=== PATIENT | male | born 1960 | race American Indian/Alaskan Native ===

== ENCOUNTER 2016-07-19 16:15 | Inpatient (IN) | payer MEDICAID, MEDICARE ==
--- NOTE | 2016-07-19 16:33 | C.PDOC ---
History Of Present Illness 56 y/o male presents to ED with complaints of persistent Left hip and leg pain for 4 days. Patient states he tripped and fell landing on left hip. Patient was previously seen at [facility] 3 days ago for same complaints and was told XRAYS were negative. Patient reports on going persistent pain and unable to weight bear. No other complaints at this time. PERSIST L HIP/LEG PAIN X 4 DAYS. PS TRIPPED AND FELL LANDED ON L HIP. SEEN @ [facility] 3 DAYS FOR SAME, WAS TOLD XRAYS NEG. STILL W PERSIST PAIN UNABLE TO WT BEAR LAST HEROIN USE 2 DAYS AGO EXAM MILD DIST NONTOXIC HEENT ATRAUM EXT NO GROSS DEFORM. LIMITED ROM L HIP. L KNEE ROM W PAIN LIMITED DUE TO HIP. SKIN INTACT NEURO INTACT Time Seen by Provider: 07/19/16 16:23 Chief Complaint (Nursing): Lower Extremity Problem/Injury History Per: Patient History/Exam Limitations: no limitations Onset/Duration Of Symptoms: Days Current Symptoms Are (Timing): Still Present - Hip Description Of Injury: Fell Currently Unable To: Bear Weight - Knee Description Of Injury: Fell Currently Unable To: Bear Weight Past Medical History Reviewed: Historical Data, Nursing Documentation, Vital Signs Vital Signs: Last Vital Signs Temp 98.1 F 07/19/16 16:17 Pulse 98 H 07/19/16 16:17 Resp 20 07/19/16 16:17 BP 114/74 07/19/16 16:17 Pulse Ox 96 07/19/16 18:05 - Medical History PMH: HTN - [facility] DETOXIFICATION SERVICES FOR SUBSTANCE ABUSE TREATMENT (04/29/15) Family History: States: No Known Family Hx - Social History Hx Tobacco Use: No Hx Alcohol Use: No Hx Substance Use: Yes - Immunization History Hx Tetanus Toxoid Vaccination: No Hx Influenza Vaccination: No Hx Pneumococcal Vaccination: No Review Of Systems Except As Marked, All Systems Reviewed And Found Negative. Constitutional: Positive for: Weakness Eyes: Negative for: Vision Change Musculoskeletal: Positive for: Leg Pain Skin: Negative for: Rash Neurological: Positive for: Weakness. Negative for: Headache, Dizziness Physical Exam - Physical Exam Appears: Non-toxic, Other (Mild Distress) Skin: Normal Color, Warm Head: Atraumatic, Normacephalic Eye(s): bilateral: Normal Inspection Oral Mucosa: Moist Extremity: No Deformity, No Swelling, Other (Limited ROM on left hip, Left knee ROM with pain (limited due to hip)) Neurological/Psych: Oriented x3, Normal Speech, Normal Cognition ED Course And Treatment ECG: Interpreted By Me ECG Rhythm: Sinus Rhythm ECG Interpretation: Normal Rate From EC O2 Sat by Pulse Oximetry: 96 (RA) Pulse Ox Interpretation: Normal Progress - Re-Evaluation Re-evaluation Note: 07/19/16 17:39 D/W DR DOMINGO ORTHO CARD CUTTER HELPER. WILL CONSULT. PREP FOR O.R. 07/2107/19/16 18:02 d/w dr PERDOMO MED CARD CUTTER HELPER AWARE OF ER FINDINGS AND ORTHO PLAN. WILL ADMIT - Data Reviewed Data Reviewed: Lab, Diagnostic imaging, EKG, Old records - Continuity of Care Discussed patient case with:: Patient, On-call PMD-pt unassigned Discussed pt. case with client development consultant/specialty: Orthopedic Surgery Disposition Counseled Patient/Family Regarding: Studies Performed, Diagnosis - Disposition Disposition: HOSPITALIZED Disposition Time: 17:41 Condition: STABLE - POA Present On Arrival: Falls Or Trauma - Clinical Impression Clinical Impression: Hip fracture - PA / MEAT WRAPPER / Resident Statement MD/DO has reviewed & agrees with the documentation as recorded. MD/DO has examined the patient and agrees with the treatment plan. - Scribe Statement The provider has reviewed the documentation as recorded by the Osorio Pro All medical record entries made by the Osorio were at my direction and personally dictated by me. I have reviewed the chart and agree that the record accurately reflects my personal performance of the history, physical exam, medical decision making, and the department course for this patient. I have also personally directed, reviewed, and agree with the discharge instructions and disposition. Decision To Admit - Pt Status Changed To: Hospital Disposition Of: Inpatient - Admit Certification Admit to Inpatient:: After my assessment, the patient will require hospitalization for at least two midnights. This is because of the severity of symptoms shown, intensity of services needed, and/or the medical risk in this patient being treated as an outpatient. - InPatient: Physician Admission Certification: I certify that this patient requires 2 or more midnights of care for the following reason:: SEE NOTE - . Bed Request Type: Regular Admitting Physician: Emily Perdomo Patient Diagnosis: Hip fracture
[2016-07-19] MEDS ORDERED: Sodium Chloride 0.9% 1,000 ML IV ONE (17:33)
[2016-07-19] MEDS ORDERED: HYDROmorphone 0.5 mg/0.5 ml ISec IVP STA (17:34)
--- NOTE | 2016-07-19 17:36 | RAD ---
PROCEDURE: Left Knee Radiographs. HISTORY: Trauma COMPARISON: None available. FINDINGS: BONES: No acute displaced fracture. JOINTS: No dislocation. JOINT EFFUSION: Probable small suprapatellar joint effusion. OTHER FINDINGS: None. IMPRESSION: Probable small suprapatellar joint effusion. No acute displaced fracture or dislocation identified If symptoms persist, or if there is continued clinical concern, x-ray follow-up in 7-10 days should be considered.
--- NOTE | 2016-07-19 17:52 | RAD ---
PROCEDURE: Left femur HISTORY: Trauma 2 days ago. Anatomic area of interest: Greater trochanter region COMPARISON: July 19, 2016. TECHNIQUE: Standard protocol for this study/examination. FINDINGS: Comminuted fracture through the proximal femur. This courses to the greater trochanter into the neck and intertrochanteric region. Preserved femoral acetabular relationship. IMPRESSION: Acute proximal left femoral fracture.
--- NOTE | 2016-07-19 17:57 | RAD ---
PROCEDURE: Radiographs of the pelvis. HISTORY: TRAUMA COMPARISON: July 19, 2016. FINDINGS: BONES: Pelvic Bones: Proximal left femoral fracture. Inter trochanteric location extending to the greater trochanter. Unremarkable. Hips: Preserved femoral acetabular relationship on the left. Mild degenerative changes which are symmetrical bilaterally. JOINTS: Sacroiliac Joints: Unremarkable. Pubic Symphysis: Unremarkable. OTHER FINDINGS: Incompletely visualized orthopedic hardware lower lumbar spine. IMPRESSION: Acute and comminuted intertrochanteric fracture proximal left femur. Concordant results with the preliminary interpretation rendered by the emergency department physician procedure.
--- NOTE | 2016-07-19 18:07 | RAD ---
PROCEDURE: CHEST RADIOGRAPH, 1 VIEW HISTORY: Pre Op COMPARISON: None available. FINDINGS: LUNGS: No discrete infiltrates suspicious pulmonary nodules or masses. Innumerable small calcified granuloma. PLEURA: No pneumothorax or pleural fluid seen. CARDIOVASCULAR: Normal. OSSEOUS STRUCTURES: No significant abnormalities. VISUALIZED UPPER ABDOMEN: Normal. OTHER FINDINGS: None. IMPRESSION: No active disease. No preliminary interpretation rendered by the emergency department physician
[2016-07-19 18:31] LABS: BASO % 0.5 % (0.0-2.0); EOS # 0.1 K/uL (0.0-0.7); EOS % 1.9 % (0.0-4.0); HEMATOCRIT 35.7 % (35.0-51.0); LYMPH # 1.4 K/uL (1.0-4.3); MEAN CELL VOLUME 88.8 fL (80.0-94.0); MEAN CORPUSCULAR HEMOGLOBIN 28.7 pg (27.0-31.0); MEAN CORPUSCULAR HGB CONC 32.3 g/dL (33.0-37.0); MEAN PLATELET VOLUME 8.4 fL (7.2-11.7); MONO # 0.6 K/uL (0.0-0.8); MONO % 8.3 % (0.0-10.0); RED CELL DISTRIBUTION WIDTH 14.7 % (11.5-14.5); WHITE BLOOD COUNT 7.2 K/uL (4.8-10.8)
[2016-07-19 18:38] LABS: CHLORIDE 110 mmol/L (98-107)
[2016-07-19 18:39] LABS: INR 1.1; POTASSIUM 3.6 mmol/L (3.6-5.2); SODIUM 144 mmol/L (132-148)
[2016-07-19 18:41] LABS: ALB/GLOB RATIO 1.2 (1.0-2.1); ALKALINE PHOSPHATASE 71 U/L (38-126); AST/SGOT 20 U/L (17-59); BLOOD UREA NITROGEN 17 mg/dL (9-20); CARBON DIOXIDE 27 mmol/L (22-30); GFR AFRICAN-AMERICAN > 60
[2016-07-19 18:42] LABS: ALT/SGPT 27 U/L (21-72); CALCIUM 8.6 mg/dl (8.6-10.4); GLUCOSE,RANDOM 81 mg/dL (75-110)
--- NOTE | 2016-07-19 22:07 | CP.PCM.HP ---
History of Present Illness - History of Present Illness History of Present Illness: COMPREHENSIVE HISTORY & PHYSICAL EXAM HPI 56 years old, black male with history of hypertension for 3-4 days ago and sustained pain in the left hip region. Patient was seen in the emergency room off [facility]. An x-ray was reported as negative. Patient continued to have pain and limping and presented to [facility]. He an x-ray showed a fracture of the left femoral head. PAST HIST. Hypertension. Heroine abuse. Patient was admitted in the beginning of 2017 for heroine abuse and now continues to use. the last one was 2 days ago. PERSONAL HIST: Smoking. t Alcohol. y Allergy N Travel_- . FAMILY HIST : ROS : Constitutional: Negative for weight change, chills, night sweats, fatigue and usage of assist device. Eyes: Negative for redness, swelling, itching, discharge, vision changes, blurry vision, double vision, glaucoma, cataracts, Ears: Negative for hearing loss, ringing, , tinnitus, vertigo Nose: Negative for rhinorrhea, stuffiness, sniffing, itching, postnasal drip, discoloration, nasal congestion and epistaxis. Throat: Negative for throat clearing, sore throat, hoarseness, difficulty swallowing and difficulty speaking. Respiratory: Negative for cough, chest tightness, sputum or phlegm, chronic cough, hemoptysis, wheezing, snoring at night, pleuritic chest pain and daytime somnolence. Cardiovascular: Negative for chest pain, palpitations, orthopnea, PND, Edema of legs, leg cramps, angina, claudication, , irregular heartbeat, Neurology: Negative for irritability, muscle weakness, numbness and tingling, seizures, tremors, migraines, slurred speech, syncope, memory loss, mood changes , recurrent headaches Gastrointestinal: Negative for difficulty swallowing, diarrhea, constipation, black stools, rectal bleeding, nausea, flatulence, reflux, poor appetite, changes in bowel habits, abdominal pain Genitourinary: Negative for frequent urination, hematuria, discharge, incontinence, urinary retention, frequent UTI, Psychiatric: Negative for depression, anxiety/panic, suicidal tendencies, Musculoskeletal: Negative for swollen joints, back pain, , neck pain, morning stiffness of joints, . pain in the left region. Hip joint. Skin: Negative for rash, ulcers, itching, dry skin and pigmented lesions. P/E: Constitutional: Appears stated age and in no apparent distress. Head: Normocephalic. Ears: External ear canals patent without inflammation. Tympanic membranes intact with normal light reflex and landmark. Eyes: Pupils are central, bilaterally equal, symmetrical and reacts to light with normal movements and no icterus or pallor. Nose: External nares are patent. Mucosa is pink Mouth-Throat: Good general appearance and condition. No post-pharyngeal/oropharyngeal erythema and tonsillar hypertrophy. Good dental hygiene. Neck-Lymphatic: Neck is supple with normal ROM, no thyromegaly, lymph nodes or masses. JVD is normal with no carotid bruit. Lungs: Clear to percussion and auscultation with bilateral normal air entry. Cardiovascular: S1 and S2 are normal with no murmurs, gallops and rub. GI Exam: No hepatomegaly. Abdomen is soft and non-tender. No Organomegaly , masses or hernias are evident and bowel sounds are normal and active. Neurology: Higher function and all cranial nerves intact, with no gross motor or sensory deficit. Superficial and deep reflexes are normal with downwards planters. No cerebellar deficit with normal gait. Musculoskeletal:tenderness around the left hip range of motion is restricted due to pain in the left hip. Extremities: Homans sign absent. Intact pulses with no pitting edema, calf tenderness or skin color changes. Skin: No rash, eruptions or abnormal skin pigmentation LAB/RADIOLOGY: ASSESMENT : Fraction of the left femoral head. Hypertension. Plan Orthopedic evaluation and further treatment. Present on Admission - Present on Admission Any Indicators Present on Admission: No Past Patient History - Past Medical History & Family History Past Medical History?: Yes - Past Social History Smoking Status: Light Smoker < 10 Cigarettes Daily - CARDIAC Hx Cardiac Disorders: Yes Hx Hypertension: Yes - PULMONARY Hx Respiratory Disorders: No Hx Tuberculosis: No - NEUROLOGICAL Hx Neurological Disorder: No Hx Seizures: No - HEENT Hx HEENT Problems: No - RENAL Hx Chronic Kidney Disease: No - ENDOCRINE/METABOLIC Hx Endocrine Disorders: No - HEMATOLOGICAL/ONCOLOGICAL Hx Blood Disorders: No Hx Human Immunodeficiency Virus (HIV): No - INTEGUMENTARY Hx Dermatological Problems: No - MUSCULOSKELETAL/RHEUMATOLOGICAL Hx Falls: No - GASTROINTESTINAL Hx Gastrointestinal Disorders: No - GENITOURINARY/GYNECOLOGICAL Hx Genitourinary Disorders: No Hx Sexually Transmitted Disorders: No - PSYCHIATRIC Hx Substance Use: Yes (heroine use) - SURGICAL HISTORY Hx Surgeries: Yes Hx Orthopedic Surgery: Yes (spine surgery) - ANESTHESIA Hx Anesthesia: Yes Hx Anesthesia Reactions: No Hx Malignant Hyperthermia: No Has any member of the family had a problem w/ anesthesia?: No Meds Allergies/Adverse Reactions: Allergies Allergy/AdvReac Type Severity Reaction Status Date / Time No Known Allergies Allergy Verified 07/19/16 16:19 Results - Vital Signs Recent Vital Signs: Last Vital Signs Temp 98.2 F 07/19/16 20:23 Pulse 73 07/19/16 20:23 Resp 20 07/19/16 20:23 BP 124/76 07/19/16 20:23 Pulse Ox 98 07/19/16 20:23 - Labs Result Diagrams: 07/19/16 18:26 07/19/16 18:26 Labs: Laboratory Results - last 24 hr 07/19/16 07/19/16 07/19/16 18:26 18:26 18:26 WBC 7.2 RBC 4.02 L Hgb 11.5 L Hct 35.7 MCV 88.8 MCH 28.7 MCHC 32.3 L RDW 14.7 H Plt Count 135 D MPV 8.4 Neut % (Auto) 69.3 Lymph % (Auto) 20.0 Bureau % (Auto) 8.3 Eos % (Auto) 1.9 Baso % (Auto) 0.5 Neut # 5.0 Lymph # 1.4 Bureau # 0.6 Eos # 0.1 Baso # 0.0 PT INR APTT Sodium 144 Potassium 3.6 Chloride 110 H Carbon Dioxide 27 Anion Gap 11 BUN 17 Creatinine 0.9 Est GFR ( Amer) > 60 Est GFR (Non-Af Amer) > 60 POC Glucose (mg/dL) Random Glucose 81 Calcium 8.6 Total Bilirubin 1.0 AST 20 ALT 27 Alkaline Phosphatase 71 Total Protein 7.0 Albumin 3.7 Globulin 3.2 Albumin/Globulin Ratio 1.2 Blood Type O POSITIVE Antibody Screen Negative 07/19/16 07/19/16 18:26 21:33 WBC RBC Hgb Hct MCV MCH MCHC RDW Plt Count MPV Neut % (Auto) Lymph % (Auto) Bureau % (Auto) Eos % (Auto) Baso % (Auto) Neut # Lymph # Bureau # Eos # Baso # PT 12.5 H INR 1.1 APTT 33 Sodium Potassium Chloride Carbon Dioxide Anion Gap BUN Creatinine Est GFR ( Amer) Est GFR (Non-Af Amer) POC Glucose (mg/dL) 113 H Random Glucose Calcium Total Bilirubin AST ALT Alkaline Phosphatase Total Protein Albumin Globulin Albumin/Globulin Ratio Blood Type Antibody Screen
[2016-07-19] MEDS: Oxycodone/Acetaminophen 5/325 mg Tab PO PRN (22:35)
[2016-07-19 22:58] LABS: RBC URINE 1 /hpf (0-3); URINE BACTERIA RARE (<OCC); URINE BILIRUBIN NEGATIVE (NEGATIVE); URINE BLOOD NEGATIVE (NEGATIVE); URINE COLOR Yellow (YELLOW); URINE GLUCOSE (UA) NORMAL (Normal); URINE KETONE NEGATIVE (NEGATIVE); URINE LEUKOCYTE ESTERASE NEG Leu/uL (Negative); URINE PROTEIN NEGATIVE (NEGATIVE); URINE UROBILINOGEN NORMAL mg/dL (0.2-1.0); WBC URINE 4 /hpf (0-5)
[2016-07-20] MEDS: Oxycodone/Acetaminophen 5/325 mg Tab PO PRN ×4 (04:40→20:21)
[2016-07-20 07:08] LABS: CHLORIDE 107 mmol/L (98-107); SODIUM 140 mmol/L (132-148)
[2016-07-20 07:09] LABS: POTASSIUM 3.6 mmol/L (3.6-5.2)
[2016-07-20 07:11] LABS: ALB/GLOB RATIO 1.1 (1.0-2.1); ALKALINE PHOSPHATASE 59 U/L (38-126); ALT/SGPT 20 U/L (21-72); AST/SGOT 15 U/L (17-59); BILIRUBIN,TOTAL 0.5 mg/dL (0.2-1.3); BLOOD UREA NITROGEN 18 mg/dL (9-20); CALCIUM 7.9 mg/dl (8.6-10.4); CARBON DIOXIDE 27 mmol/L (22-30); GFR AFRICAN-AMERICAN > 60; GLUCOSE,RANDOM 101 mg/dL (75-110); TOTAL PROTEIN 5.6 g/dL (6.3-8.3)
[2016-07-20 07:20] LABS: BASO # 0.1 K/uL (0.0-0.2); BASO % 1.1 % (0.0-2.0); EOS # 0.2 K/uL (0.0-0.7); EOS % 3.4 % (0.0-4.0); HEMATOCRIT 31.2 % (35.0-51.0); LYMPH # 1.1 K/uL (1.0-4.3); LYMPH % 21.3 % (20.0-40.0); MEAN CELL VOLUME 89.4 fL (80.0-94.0); MEAN CORPUSCULAR HEMOGLOBIN 28.6 pg (27.0-31.0); MEAN PLATELET VOLUME 8.4 fL (7.2-11.7); MONO # 0.5 K/uL (0.0-0.8); MONO % 8.7 % (0.0-10.0); NRBC % 0.1 % (0.0-2.0); RED CELL DISTRIBUTION WIDTH 15.2 % (11.5-14.5); WHITE BLOOD COUNT 5.4 K/uL (4.8-10.8)
--- NOTE | 2016-07-20 08:35 | CT ---
CT left hip History: Left hip fracture. Comparison: None available. Technique: Multiple contiguous axial images were performed through the left hip without the use of intravenous contrast. Subsequently, sagittal and coronal reformatted images were obtained. This CT exam was performed using one or more of the following dose reduction techniques: Automated exposure control, adjustment of the mA and/or kV according to patient size, and/or use of iterative reconstruction technique. Findings: Acute comminuted intertrochanteric fracture of the left femur with minimal displacement of the fracture fragments and mild varus angulation. Moderate advanced degenerative changes of the left hip joint with subchondral cystic changes in the superior acetabulum measuring 3.7 millimeters as well as within the anterior femoral head measuring 1.0 centimeter and posterior femoral head measuring 5 millimeters. Small hip joint effusion. No evidence of dislocation. Soft tissue swelling. Vascular calcifications. Calcified phleboliths in the pelvis. 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 Impression: Acute comminuted intertrochanteric fracture of the left femur as described above involving both the greater and lesser trochanters. Additional findings as above. These findings were preliminarily reported at 9:21 p.m. on 07/19/[address] Salena Montiel from [facility].
--- NOTE | 2016-07-20 09:50 | CARD ---
APPROVED REPORT EKG Measurement Heart [id number] <Conclusion> Normal sinus rhythm with sinus arrhythmia Left anterior fascicular block Abnormal ECG
--- NOTE | 2016-07-20 13:23 | CP.PCM.PN ---
Subjective - Date & Time of Evaluation Date of Evaluation: 07/20/16 Time of Evaluation: 13:20 - Subjective Subjective: CHIEF COMPLAINTS TODAY : PAIN L HIP ROS. HEENT : N. Resp : No cough, wheezing ,pleuritic CP ,or hemoptysis Cardio : No anginal CP, PND, orthopnea, palpitation GI : No abd.pain, n/v ,diarrhea or GI bleeding . VENDING MECHANIC : No headache, vertigo, focal deficit. Musculoskel : No joint swelling , PAIN L HIP Derm : No rash Psych : Normal affect. Ext : No swelling ,calf pain PE. Pt. is alert awake in no distress. V.S As noted in the chart Head ,ear nose,throat and eyes : Normal. Neck : Supple with normal carotids. Lungs: Clear air entry. Heart : S1 & S2 normal with S4. No murmur. Abd : Soft non tender with normal bowel sounds. Neuro : Moves all ext. with no localized deficit. Ext : No edema with intact pulses.Non tender calves ROM L HIP RESTRICTED AND PAINFUL Derm : No rashes or decubitus ulcer. LABS/RADIOLOGY: ASSESSMENT/PLAN : PT. IS MEDICALLY CLEARED FOR ORTHO SUGERY EXCEPT DROP IN PLT TO 115, HEMATOLOGY WILL CLARIFY Objective - Vital Signs/Intake and Output Vital Signs (last 24 hours): Temp Pulse Resp BP Pulse Ox 98.5 F 54 L 17 116/70 100 07/20/16 07:15 07/20/16 07:15 07/20/16 07:15 07/20/16 07:15 07/20/16 07:15 - Medications Medications: Current Medications Oxycodone/Acetaminophen (Percocet 5/325 Mg Tab) 1 tab PO Q4H PRN PRN Reason: Pain, severe (8-10) Stop: 07/22/16 21:44 Last Admin: 07/20/16 09:57 Dose: 1 tab - Labs Labs: 07/20/16 06:52 07/20/16 06:52 PT 12.5 SECONDS (9.7-12.2) H 07/19/16 18:26 INR 1.1 07/19/16 18:26 APTT 33 SECONDS (21-34) 07/19/16 18:26
--- NOTE | 2016-07-20 16:55 | CP.PCM.CON ---
History of Present Illness - History of Present Illness History of Present Illness: 56 year old male with a history of HTN, admitted s/p fall with hip fracture, found to be thrombocytopenic. The patient reports to tripping on the side walk and landed on his hip. He was unable to apply weight on his leg and went to [facility] [place] and was given crutches. Due to continued pain and inability to weight bare , he came to [facility] and was found to have a hip fracture. He denies blood problems in the past. He denies abnormal bleeding and bruising. Past medical history: HTN Past surgical history: Back surgery for herniated disc Family history: Denies hematologic and oncologic problems Social history: SMokes 1/2ppd x 40 years, denies alcohol and illicit drug use. Allergies: NKA Review of systems: All remaining review of systems including HEENT, cardiovascular, respiratory, gastrointestinal, genitourinary, musculoskeletal, dermatologic, and neurologic are negative unless mentioned in the HPI. Past Patient History - Past Medical History & Family History Past Medical History?: Yes - Past Social History Smoking Status: Light Smoker < 10 Cigarettes Daily - CARDIAC Hx Cardiac Disorders: Yes Hx Hypertension: Yes - PULMONARY Hx Respiratory Disorders: No Hx Tuberculosis: No - NEUROLOGICAL Hx Neurological Disorder: No Hx Seizures: No - HEENT Hx HEENT Problems: No - RENAL Hx Chronic Kidney Disease: No - ENDOCRINE/METABOLIC Hx Endocrine Disorders: No - HEMATOLOGICAL/ONCOLOGICAL Hx Blood Disorders: No Hx Human Immunodeficiency Virus (HIV): No - INTEGUMENTARY Hx Dermatological Problems: No - MUSCULOSKELETAL/RHEUMATOLOGICAL Hx Falls: No - GASTROINTESTINAL Hx Gastrointestinal Disorders: No - GENITOURINARY/GYNECOLOGICAL Hx Genitourinary Disorders: No Hx Sexually Transmitted Disorders: No - PSYCHIATRIC Hx Substance Use: Yes (heroine use) - SURGICAL HISTORY Hx Surgeries: Yes Hx Orthopedic Surgery: Yes (spine surgery) - ANESTHESIA Hx Anesthesia: Yes Hx Anesthesia Reactions: No Hx Malignant Hyperthermia: No Has any member of the family had a problem w/ anesthesia?: No Meds Allergies/Adverse Reactions: Allergies Allergy/AdvReac Type Severity Reaction Status Date / Time No Known Allergies Allergy Verified 07/19/16 16:19 - Medications Medications: Current Medications Oxycodone/Acetaminophen (Percocet 5/325 Mg Tab) 1 tab PO Q4H PRN PRN Reason: Pain, severe (8-10) Stop: 07/22/16 21:44 Last Admin: 07/20/16 16:00 Dose: 1 tab Physical Exam - Head Exam Head Exam: ATRAUMATIC - Eye Exam Eye Exam: Normal appearance - ENT Exam ENT Exam: Mucous Membranes Dry - Respiratory Exam Respiratory Exam: NORMAL BREATHING PATTERN - Cardiovascular Exam Cardiovascular Exam: +S1, +S2 - GI/Abdominal Exam GI & Abdominal Exam: Normal Bowel Sounds - Extremities Exam Extremities exam: Positive for: normal inspection - Neurological Exam Neurological exam: Oriented x3 - Psychiatric Exam Psychiatric exam: Normal Affect, Normal Mood - Skin Skin Exam: Warm Results - Vital Signs Recent Vital Signs: Last Vital Signs Temp 98.3 F 07/20/16 15:44 Pulse 55 L 07/20/16 15:44 Resp 18 07/20/16 15:44 BP 146/83 07/20/16 15:44 Pulse Ox 100 07/20/16 15:44 - Labs Result Diagrams: 07/20/16 06:52 07/20/16 06:52 Labs: Laboratory Results - last 24 hr 07/19/16 07/19/16 07/19/16 18:26 18:26 18:26 WBC 7.2 RBC 4.02 L Hgb 11.5 L Hct 35.7 MCV 88.8 MCH 28.7 MCHC 32.3 L RDW 14.7 H Plt Count 135 D MPV 8.4 Neut % (Auto) 69.3 Lymph % (Auto) 20.0 Stearns % (Auto) 8.3 Eos % (Auto) 1.9 Baso % (Auto) 0.5 Neut # 5.0 Lymph # 1.4 Stearns # 0.6 Eos # 0.1 Baso # 0.0 PT INR APTT Sodium 144 Potassium 3.6 Chloride 110 H Carbon Dioxide 27 Anion Gap 11 BUN 17 Creatinine 0.9 Est GFR ( Amer) > 60 Est GFR (Non-Af Amer) > 60 POC Glucose (mg/dL) Random Glucose 81 Calcium 8.6 Total Bilirubin 1.0 AST 20 ALT 27 Alkaline Phosphatase 71 Total Protein 7.0 Albumin 3.7 Globulin 3.2 Albumin/Globulin Ratio 1.2 Urine Color Urine Clarity Urine pH Ur Specific Wetmore Urine Protein Urine Glucose (UA) Urine Ketones Urine Blood Urine Nitrate Urine Bilirubin Urine Urobilinogen Ur Leukocyte Esterase Urine WBC (Auto) Urine RBC (Auto) Ur Squamous Epith Cells Urine Bacteria Blood Type O POSITIVE Antibody Screen Negative 07/19/16 07/19/16 07/19/16 18:26 21:33 22:48 WBC RBC Hgb Hct MCV MCH MCHC RDW Plt Count MPV Neut % (Auto) Lymph % (Auto) Stearns % (Auto) Eos % (Auto) Baso % (Auto) Neut # Lymph # Stearns # Eos # Baso # PT 12.5 H INR 1.1 APTT 33 Sodium Potassium Chloride Carbon Dioxide Anion Gap BUN Creatinine Est GFR ( Amer) Est GFR (Non-Af Amer) POC Glucose (mg/dL) 113 H Random Glucose Calcium Total Bilirubin AST ALT Alkaline Phosphatase Total Protein Albumin Globulin Albumin/Globulin Ratio Urine Color Yellow Urine Clarity Clear Urine pH 5.0 Ur Specific Wetmore 1.024 Urine Protein Negative Urine Glucose (UA) Normal Urine Ketones Negative Urine Blood Negative Urine Nitrate Negative Urine Bilirubin Negative Urine Urobilinogen Normal Ur Leukocyte Esterase Neg Urine WBC (Auto) 4 Urine RBC (Auto) 1 Ur Squamous Epith Cells 1 Urine Bacteria Rare Blood Type Antibody Screen 07/20/16 07/20/16 07/20/16 06:49 06:52 06:52 WBC 5.4 RBC 3.49 L Hgb 10.0 L Hct 31.2 L MCV 89.4 MCH 28.6 MCHC 32.0 L RDW 15.2 H Plt Count 115 L D MPV 8.4 Neut % (Auto) 65.5 Lymph % (Auto) 21.3 Stearns % (Auto) 8.7 Eos % (Auto) 3.4 Baso % (Auto) 1.1 Neut # 3.5 Lymph # 1.1 Stearns # 0.5 Eos # 0.2 Baso # 0.1 PT INR APTT Sodium 140 Potassium 3.6 Chloride 107 Carbon Dioxide 27 Anion Gap 10 BUN 18 Creatinine 0.8 Est GFR ( Amer) > 60 Est GFR (Non-Af Amer) > 60 POC Glucose (mg/dL) 110 Random Glucose 101 Calcium 7.9 L Total Bilirubin 0.5 AST 15 L D ALT 20 L D Alkaline Phosphatase 59 Total Protein 5.6 L Albumin 2.9 L D Globulin 2.7 Albumin/Globulin Ratio 1.1 Urine Color Urine Clarity Urine pH Ur Specific Wet[place] Urine Protein Urine Glucose (UA) Urine Ketones Urine Blood Urine Nitrate Urine Bilirubin Urine Urobilinogen Ur Leukocyte Esterase Urine WBC (Auto) Urine RBC (Auto) Ur Squamous Epith Cells Urine Bacteria Blood Type Antibody Screen 07/20/16 11:58 WBC RBC Hgb Hct MCV MCH MCHC RDW Plt Count MPV Neut % (Auto) Lymph % (Auto) Stearns % (Auto) Eos % (Auto) Baso % (Auto) Neut # Lymph # Stearns # Eos # Baso # PT INR APTT Sodium Potassium Chloride Carbon Dioxide Anion Gap BUN Creatinine Est GFR ( Amer) Est GFR (Non-Af Amer) POC Glucose (mg/dL) 118 H Random Glucose Calcium Total Bilirubin AST ALT Alkaline Phosphatase Total Protein Albumin Globulin Albumin/Globulin Ratio Urine Color Urine Clarity Urine pH Ur Specific Wetmore Urine Protein Urine Glucose (UA) Urine Ketones Urine Blood Urine Nitrate Urine Bilirubin Urine Urobilinogen Ur Leukocyte Esterase Urine WBC (Auto) Urine RBC (Auto) Ur Squamous Epith Cells Urine Bacteria Blood Type Antibody Screen Assessment & Plan (1) Thrombocytopenia Assessment and Plan: mild will check HIV and hepatitis panel patient cleared from hematologic standpoint for orthopedic surgery Status: Acute (2) Anemia Assessment and Plan: will check ferritin, retic count, b12, folate, FOBT to further characterize Thank you for this interesting consult. Status: Acute
[2016-07-21] MEDS: Oxycodone/Acetaminophen 5/325 mg Tab PO PRN ×3 (02:51→22:19)
[2016-07-21 09:31] LABS: HEMATOCRIT 36.1 % (35.0-51.0); MEAN CELL VOLUME 88.4 fL (80.0-94.0); MEAN CORPUSCULAR HEMOGLOBIN 28.6 pg (27.0-31.0); MEAN CORPUSCULAR HGB CONC 32.3 g/dL (33.0-37.0); MEAN PLATELET VOLUME 8.4 fL (7.2-11.7); RED CELL DISTRIBUTION WIDTH 14.4 % (11.5-14.5); WHITE BLOOD COUNT 7.6 K/uL (4.8-10.8)
[2016-07-21 09:44] LABS: CHLORIDE 100 mmol/L (98-107); SODIUM 134 mmol/L (132-148)
[2016-07-21 09:47] LABS: BLOOD UREA NITROGEN 14 mg/dL (9-20); CARBON DIOXIDE 27 mmol/L (22-30); GFR AFRICAN-AMERICAN > 60; GLUCOSE,RANDOM 99 mg/dL (75-110)
[2016-07-21 09:48] LABS: CALCIUM 8.3 mg/dl (8.6-10.4)
[2016-07-21 10:56] LABS: FOLATE 10.6 ng/mL
--- NOTE | 2016-07-21 11:34 | CP.PCM.PN ---
Subjective - Date & Time of Evaluation Date of Evaluation: 07/21/16 Time of Evaluation: 11:34 - Subjective Subjective: FOR OR TODAY HEMATOLOGY CLEARED PT REPAET PLT 141 HEPATITIS PROFILE NEG Objective - Vital Signs/Intake and Output Vital Signs (last 24 hours): Temp Pulse Resp BP Pulse Ox 98.4 F 54 L 20 143/51 L 98 07/21/16 07:50 07/21/16 07:50 07/21/16 07:50 07/21/16 07:50 07/21/16 07:50 - Medications Medications: Current Medications Oxycodone/Acetaminophen (Percocet 5/325 Mg Tab) 1 tab PO Q4H PRN PRN Reason: Pain, severe (8-10) Stop: 07/22/16 21:44 Last Admin: 07/21/16 08:58 Dose: 1 tab - Labs Labs: 07/21/16 09:25 07/21/16 09:25 PT 12.5 SECONDS (9.7-12.2) H 07/19/16 18:26 INR 1.1 07/19/16 18:26 APTT 33 SECONDS (21-34) 07/19/16 18:26
--- NOTE | 2016-07-21 13:26 | CP.PCM.CON ---
History of Present Illness - History of Present Illness History of Present Illness: 56-year-old male with PMH = hypertension, IV drug abuse (heroin-last use was 2 days prior to admission, 07/17/16)presented to the ER at [facility] on with L hip pain for 4 days and inability to weight-bear on L lower extremity for 1 day.patient is a poor historian and gives a rather vague history, he states that approximately 3-4 days ago he developed left hip pain after trip and fall from standing while walking and went to the ER at [facility]. He was diagnosed with a sprain and told that there was no fracture and told to follow- up with an orthopedic surgeon as an outpatient. The pain continued to worsen and he started to have difficulty with weightbearing on left lower extremity. At that point time he came to the ER at [facility] , after evaluation by ER staff and review of imaging, he was diagnosed with a displaced (mildly) intertrochanteric hip fracture. He was admitted to the medical service under Dr Perdomo for definitive tx and orthopedic consultation was placed. I evaluated the pt as an inpt the next morning 07/20/16. I reviewed the primary care team notes and ER notes as well as discussed the above history with the patient. On initial consultation pt initially reported that this was atraumatic L hip pain and due to the lack of trauma resulting in this hip fracture a CT of the left hip was ordered to rule out pathologic fracture. He would later change his story to include a trauma- trip & fall 4 days ago. Patient denied shortness of breath/chest pain/headache/nausea and vomiting/ numbness and tingling/head trauma or LOC/other musculoskeletal injury. review of imaging: X-rays pelvis and left femur done in ER on 07/29/16: +mildly displaced intertrochanteric hip fracture CT of left hip done on 07/19/16 was read as: #1 acute comminuted intertrochanteric fracture of the left femur #2 cam Malformation/femoral acetabular impingement #3 no evidence of pathologic lesion or process Past Patient History - Past Medical History & Family History Past Medical History?: Yes - Past Social History Smoking Status: Light Smoker < 10 Cigarettes Daily - CARDIAC Hx Cardiac Disorders: Yes Hx Hypertension: Yes - PULMONARY Hx Respiratory Disorders: No Hx Tuberculosis: No - NEUROLOGICAL Hx Neurological Disorder: No Hx Seizures: No - HEENT Hx HEENT Problems: No - RENAL Hx Chronic Kidney Disease: No - ENDOCRINE/METABOLIC Hx Endocrine Disorders: No - HEMATOLOGICAL/ONCOLOGICAL Hx Blood Disorders: No Hx Human Immunodeficiency Virus (HIV): No - INTEGUMENTARY Hx Dermatological Problems: No - MUSCULOSKELETAL/RHEUMATOLOGICAL Hx Falls: No - GASTROINTESTINAL Hx Gastrointestinal Disorders: No - GENITOURINARY/GYNECOLOGICAL Hx Genitourinary Disorders: No Hx Sexually Transmitted Disorders: No - PSYCHIATRIC Hx Substance Use: Yes (heroine use) - SURGICAL HISTORY Hx Surgeries: Yes Hx Orthopedic Surgery: Yes (spine surgery) - ANESTHESIA Hx Anesthesia: Yes Hx Anesthesia Reactions: No Hx Malignant Hyperthermia: No Has any member of the family had a problem w/ anesthesia?: No Meds Allergies/Adverse Reactions: Allergies Allergy/AdvReac Type Severity Reaction Status Date / Time No Known Allergies Allergy Verified 07/19/16 16:19 - Medications Medications: Current Medications Oxycodone/Acetaminophen (Percocet 5/325 Mg Tab) 1 tab PO Q4H PRN PRN Reason: Pain, severe (8-10) Stop: 07/22/16 21:44 Last Admin: 07/21/16 08:58 Dose: 1 tab Physical Exam - Extremities Exam Additional comments: right lower extremity: - TTP, no swelling/warmth/erythema, no instability, negative logroll, skin intact, Full range of motion at all joints without pain +5/5 motor strength hip flexion/hip extension, knee flexion/extension, ankle plantar flexion/dorsiflexion, toes up and down Sensory intact L2-S1, DPN/TN/SPN 2+ dorsalis pedis pulse, brisk cap refill all toes Calves soft and nontender bilaterally Left lower extremity: + + Logroll, + TTP at groin, skin intact not able to tolerate any range of motion at hip due to pain localized to groin and greater trochanter, no swelling/warmth/erythema +5/5 motor strength ankle plantar flexion/dorsiflexion, toes up and down (hip and knee not tested due to pain) Sensory intact L2-S1, DPN/TN/SPN 2+ dorsalis pedis pulse, brisk cap refill all toes Results - Vital Signs Recent Vital Signs: Last Vital Signs Temp 98.4 F 07/21/16 07:50 Pulse 54 L 07/21/16 07:50 Resp 20 07/21/16 07:50 BP 143/51 L 07/21/16 07:50 Pulse Ox 98 07/21/16 07:50 - Labs Result Diagrams: 07/21/16 09:25 07/21/16 09:25 Labs: Laboratory Results - last 24 hr 07/19/16 07/21/16 07/21/16 18:26 09:25 09:25 WBC 7.6 RBC 4.08 L Hgb 11.7 L Hct 36.1 MCV 88.4 MCH 28.6 MCHC 32.3 L RDW 14.4 Plt Count 141 MPV 8.4 Retic Count Sodium 134 Potassium 4.0 Chloride 100 Carbon Dioxide 27 Anion Gap 11 BUN 14 Creatinine 0.8 Est GFR ( Amer) > 60 Est GFR (Non-Af Amer) > 60 Random Glucose 99 Calcium 8.3 L Ferritin 56.8 Vitamin B12 261 Folate 10.6 Hepatitis A IgM Ab Hep Bs Antigen Hep B Core IgM Ab Hepatitis C Antibody HIV 1&2 Antibody Screen Blood Type O POSITIVE Antibody Screen Negative 07/21/16 07/21/16 07/21/16 09:25 09:25 09:25 WBC RBC Hgb Hct MCV MCH MCHC RDW Plt Count MPV Retic Count 0.6 Sodium Potassium Chloride Carbon Dioxide Anion Gap BUN Creatinine Est GFR ( Amer) Est GFR (Non-Af Amer) Random Glucose Calcium Ferritin Vitamin B12 Folate Hepatitis A IgM Ab Negative Hep Bs Antigen Negative Hep B Core IgM Ab Negative Hepatitis C Antibody Negative HIV 1&2 Antibody Screen Negative Blood Type Antibody Screen Assessment & Plan (1) Closed intertrochanteric fracture of left femur Assessment and Plan: 56-year-old male with left hip pain for 4 days and inability to weight-bear on left lower extremity for a 1 day, admitted through [facility] ER on 07/19/16 DX = L hip displaced intertrochanteric hip fracture Plan: L hip: -This is an active young male who is a community ambulator without assistive devices at baseline -The images and diagnosis reviewed at length with the patient -indicated for ORIF intertrochanteric hip fracture with cephalo-medullary nail -The risks/benefits/alternatives to the surgery were discussed at length with the patient, all questions were answered, he understands the risks and wishes to proceed with surgery -I have communicated with the primary care medical team the treatment plan and they will plan to have medical clearance by the end of the day today, platelets trending low, PCP requested a hematology consult, I have spoken with him and Dr. Engle the geodetic survey director, we do not believe that this will delay surgical treatment and he should be cleared for surgery -I have spoken to the OR,placed on schedule for Tom[place]/Tuesday07/21/16 745 AM start -Nothing by mouth after midnight -IV fluid hydration -Consider Argueta catheter, pt refused -Hold DVT prophylaxis for OR, can start Lovenox or other DVT proph post-op day # 1 -bed rest for now with overhead trapezius and Diaz's traction if patient tolerates -Will follow -Please contact me with any questions, concerns, updates, at [phone] Thank you for allowing me to contribute to the care of your patient. Lorri Espana MD Orthopedic Surgery Status: Acute (2) Hip fracture Status: Acute
[2016-07-21] MEDS ORDERED: Lactated Ringer's 1,000 ML IV ONE ×3 (15:08→15:56)
[2016-07-21] MEDS ORDERED: Propofol 10 mg/ml Inj (20 ML) ONE (15:09)
[2016-07-21] MEDS ORDERED: Midazolam 2 MG/2 ML VIAL ONE (15:09)
[2016-07-21] MEDS ORDERED: Rocuronium 10 mg/ml (5 ml) ONE (15:13)
[2016-07-21] MEDS ORDERED: ceFAZolin IV 1 gm in Dextrose 2 GM/100 ML BAG IVPB ONE (15:29)
[2016-07-21] MEDS ORDERED: ceFAZolin IV 2 gm in Dextrose 2 GM/100 ML BAG IVPB SCH (15:45)
[2016-07-21] MEDS ORDERED: Morphine 4 MG/ML VIAL ONE (16:22)
[2016-07-21] MEDS ORDERED: Neostigmine Methylsulfate 3mg/3ml Syringe IV ONE (16:25)
[2016-07-21] MEDS: HYDROmorphone 0.5 mg/0.5 ml ISec IVP PRN ×2 (17:21→18:00)
[2016-07-22] MEDS: HYDROmorphone 0.5 mg/0.5 ml ISec IVP PRN (02:42)
--- NOTE | 2016-07-22 03:30 | PCM.SURG1 ---
Surgeon's Initial Post Op Note - Surgeon's Notes Surgeon: Lorri Espana MD Hat Cutter: Jean Paul Hernandez MD Type of Anesthesia: General Endo Pre-Operative Diagnosis: L hip intertrochanteric displaced fx Operative Findings: L hip intertrochanteric displaced fx Post-Operative Diagnosis: L hip intertrochanteric displaced fx Operation Performed: L hip ORIF intertrochanteric hip fx w/ cephalomedulary nail (short TFN) Specimen/Specimens Removed: specimen=none. complications= none. Implants= Synthes short TFNA, 105mm helical blade, 42mm length-5mm distal interlock screw Estimated Blood Loss: EBL {In ML}: 50 Blood Products Given: N/A Drains Used: No Drains Post-Op Condition: Good Date of Surgery/Procedure: 07/21/16 Time of Surgery/Procedure: 16:00
[2016-07-22 03:38] LABS: HEMATOCRIT 35.8 % (38.5-50.0); HEMOGLOBIN 11.6 g/dL (13.2-17.1); RDW 15.3 % (11.0-15.0)
[2016-07-22 07:46] LABS: HEMATOCRIT 36.2 % (35.0-51.0); MEAN CELL VOLUME 88.7 fL (80.0-94.0); MEAN CORPUSCULAR HEMOGLOBIN 28.9 pg (27.0-31.0); MEAN CORPUSCULAR HGB CONC 32.6 g/dL (33.0-37.0); MEAN PLATELET VOLUME 8.5 fL (7.2-11.7); RED CELL DISTRIBUTION WIDTH 14.6 % (11.5-14.5); WHITE BLOOD COUNT 10.6 K/uL (4.8-10.8)
[2016-07-22 08:11] LABS: CHLORIDE 97 mmol/L (98-107); SODIUM 131 mmol/L (132-148)
[2016-07-22 08:12] LABS: POTASSIUM 4.2 mmol/L (3.6-5.2)
[2016-07-22 08:14] LABS: BLOOD UREA NITROGEN 20 mg/dL (9-20); CARBON DIOXIDE 24 mmol/L (22-30); GFR AFRICAN-AMERICAN > 60
[2016-07-22 08:15] LABS: GLUCOSE,RANDOM 112 mg/dL (75-110)
--- NOTE | 2016-07-22 08:24 | CP.PCM.PN ---
Subjective - Date & Time of Evaluation Date of Evaluation: 07/22/16 Time of Evaluation: 08:21 - Subjective Subjective: Patient states pain medication helps, but is still in a lot of pain. Denies CP/ SOB/dizziness. Objective - Vital Signs/Intake and Output Vital Signs (last 24 hours): Temp Pulse Resp BP Pulse Ox 98.0 F 75 20 130/88 96 07/21/16 23:40 07/21/16 23:40 07/21/16 23:40 07/21/16 23:40 07/21/16 23:40 - Medications Medications: Current Medications Acetaminophen (Tylenol 325mg Tab) 650 mg PO Q4 PRN PRN Reason: Fever 101 degrees fahrenheit Docusate Sodium (Colace) 100 mg PO BID EMMETT Enoxaparin Sodium (Lovenox) 40 mg SC Q24H EMMETT Hydromorphone HCl (Dilaudid) 0.5 mg IVP Q4H PRN PRN Reason: Pain, severe (8-10) Hydromorphone HCl (Dilaudid) 0.5 mg IVP Q10M PRN PRN Reason: Pain, moderate (4-7) Last Admin: 07/22/16 02:42 Dose: 0.5 mg Oxycodone/Acetaminophen (Percocet 5/325 Mg Tab) 2 tab PO Q4H PRN PRN Reason: Pain, moderate (4-7) Stop: 07/24/16 15:36 Last Admin: 07/21/16 22:19 Dose: 2 tab - Labs Labs: 07/22/16 07:37 07/22/16 07:37 PT 12.5 SECONDS (9.7-12.2) H 07/19/16 18:26 INR 1.1 07/19/16 18:26 APTT 33 SECONDS (21-34) 07/19/16 18:26 - Extremities Exam Additional comments: LLE: thigh swollen, not tense, ice to thigh, incisions dry, +ROM ankle/toes, sensation intact, +DP pulse calves soft NT neg homans Assessment and Plan (1) Closed intertrochanteric fracture of left femur Assessment & Plan: POD#1 s/p hip IM nail -f/u labs -d/c planning -PT/OT -add toradol -d/w Dr. Espana, agrees with above Status: Acute
--- NOTE | 2016-07-22 09:16 | RAD ---
PROCEDURE: Left Hip X-ray Radiographs. HISTORY: pt in pacu, s/p hip nailing COMPARISON: CT hip bowel contrast 07/19/2016 FINDINGS: BONES: The left inter trochanteric fracture is fixated by an intramedullary boo with distal horizontal transfixing screw an 80 left proximal femoral neck -Head screw. Left acetabular and lesser right acetabular subchondral cysts. JOINTS: Intrinsic bilateral hip osteoarthrosis present. The fem pleural femoral acetabular morphology is concerning for prior femoral acetabular impingement SOFT TISSUES: Soft tissue swelling consistent with postop changes OTHER FINDINGS: None. IMPRESSION: Status post fixation left intertrochanteric fracture. No displacement appreciated Other findings as above
--- NOTE | 2016-07-22 11:03 | OP ---
PROCEDURE DATE: 07/21/2016 PREOPERATIVE DIAGNOSES: Left hip intertrochanteric displaced fracture. POSTOPERATIVE DIAGNOSIS: Left hip intertrochanteric displaced fracture. PROCEDURE: Left hip open reduction and internal fixation of intertrochanteric hip fracture with ceph alomedullary nail. SURGEON: Lorri Espana MD. AIRCRAFT AIR CONDITIONING MECHANIC: Jean Paul Hernandez MD. JUSTIFICATION FOR AIRCRAFT AIR CONDITIONING MECHANIC: Jean Paul Hernandez is a board-certified general surgeon, who is a skilled surg ical cleaner assistant whose presence was an absolute necessity for successful completion of the procedure, a s he provided skilled surgical assistance with positioning of the patient, positioning of extremity, management of surgical field, fracture reduction, surgical approach, placement of fixation hardware, placement of his helical blade, preparation of proximal femur for placement of nail, preparation of d istal interlocking screw, wound closure. Jean Paul Hernandez MD was present for the entire case. ANESTHESIA: General endotracheal anesthesia. ESTIMATED BLOOD LOSS: 50 mL. SPECIMENS: None. COMPLICATIONS: None. DRAINS: None. IMPLANTS: [employer] short TFNA nail, 105-mm length helical blade, 42-mm length - 5-mm distal interlock ing screw. DISPOSITION: The patient was extubated and transferred to the PACU in stable condition and tolerated the procedure well. INDICATIONS FOR SURGERY: The patient is a 56-year-old male with a past medical history significant f or hypertension and IV drug abuse (heroin was used 2 days prior to admission on 07/17/2016), who pres ents to the Emergency Room at [facility] on 07/19/2016 with left hip pain for 4 days and inabili ty to weightbear on left lower extremity for 1 day. The patient is a poor historian and gave a rather vague history. He stated that approximately 3-4 da ys prior to presentation at [facility], he developed left hip pain after a trip and fall from [facility] while walking, and he went to the Emergency Room at [facility]. He was evalua ace by the Emergency Room staff there, and after review of imaging, he was told he did not have a fra cture and experienced a sprain of his hip, and was told to follow up with an orthopedic surgeon as an outpatient. Afterwards, he was continued to ambulate and had increasing pain with ambulation, and finally 1 day p rior to presentation in the Emergency Room, he had difficulty with weightbearing on the left lower ex tremity and 10/10 pain. When he went to the Emergency Room at [facility] on 07/19/2016, he was evaluated by Emergency Ro om staff, and after review of imaging, he was diagnosed with a displaced intertrochanteric hip fractu re. He was admitted to the medical service under Dr. Perdomo, and an orthopedic consultation was plac ed. I evaluated the patient as an inpatient the next morning on 07/20/2016. On initial consultation, the patient reported that the left hip pain was atraumatic in nature, and a CT was ordered to rule out a pathologic fracture. He would later change his story to include a traum a, which was a trip and fall 4 days ago. Review of imaging, x-rays of pelvis and left femur done in the Emergency Room on 07/19/2016 revealed a mildly displaced intertrochanteric hip fracture. CT of left hip also done on 07/19/2016 was read as: 1. Acute comminuted intertrochanteric fracture of the left femur. 2. Cam malformations/femoral acetabular impingement. 3. No evidence of pathologic lesion or process. I spent a long time with the patient explaining his diagnosis and reviewing his imaging with him, as well as treatment options. The patient is a community ambulator without assistive devices at [facility] and is relatively active. He was indicated for open reduction and internal fixation of the left hi p intertrochanteric fracture with a cephalomedullary nail. The risks, benefits, and alternatives of procedure were discussed at length with the patient with the risks including, but not limited to, inf ection, neurovascular damage, need for further surgery, failure of hardware including screw pullout, development of chronic pain and disability, development of blood clots including DVT and PE, anesthes ia reactions including . After answering all of his questions, the patient accepted these risks and wished to proceed with surgery. He was placed on the OR schedule for the next morning. PROCEDURE IN DETAIL: The patient was identified in the preoperative holding area, and the left hip w as marked for surgery. Once again, as described above, the risks, benefits, and alternatives to the surgery were discussed at length with the patient, and informed consent was obtained. After a brief discussion with anesthesia staff, perioperative IV antibiotics in the form of 2 grams of Ancef were a dministered, and the patient was taken to the operating room on his hospital bed. A final timeout wa s done with the surgeon, anesthesia staff, and OR staff - all were in agreement with the patient, pro cedure being done, and extremity being operated on. General anesthesia was administered without diff iculty or complication. The patient was then carefully transferred to the fracture top table with al l bony prominences and superficial neurovascular structures well-padded. The right upper extremity w as placed in a well-padded arm board. The left upper extremity was well-padded with egg crate paddin g and brought across his chest, and secured to his chest with tape. The right lower extremity was pl aced in a well-padded well leg cifuentes in flexion, and abduction to allow for access to fluoroscopic i maging machine. The left lower extremity was well-padded at the foot and ankle, and placed in a trac tion boot. After proper positioning was achieved and all bony prominences and superficial neurovascu lar structures were confirmed to be well-padded, as well as a well-padded perineal post, fluoroscopic imaging was used with biplanar fluoroscopic imaging confirming the intertrochanteric fracture of the left hip. The left lower extremity was then placed in traction, and internal rotation and an anatom ic reduction of the intertrochanteric hip fracture was obtained and confirmed with biplanar fluorosco pic imaging. The left hip and femur were then prepped and draped in standard sterile fashion. With the use of a guidewire percutaneously placed down to the tip of the greater trochanter, we confi rmed optimal entry point for the TFN nail at the tip of the trochanter with a 6-degree turn. An inci devi was made at the skin measuring approximately 3 cm at the level of the guidewire entering the ski n percutaneously with good hemostasis achieved. Incision was then carried out past the skin and subc utaneous tissue down to the level of the iliotibial fascia, and the iliotibial fascia was carefully i ncised. The tip of the greater trochanter was palpated, and the guidewire was repositioned to be sarath ter-center on the shaft and the greater trochanter. Biplanar fluoroscopic imaging confirmed good pos itioning of the guidewire at the entry point for the nail, and the wire was advanced to the level of the lesser trochanter. The biplanar fluoroscopic imaging confirmed a center-center position on the g uidewire down the shaft. The proximal reamer was then advanced with a soft tissue guide with the sof t tissue protector in position over the guidewire, and the proximal aspect of the femur was reamed to allow for placement of the TFN nail. Once the proximal femur was reamed to the proper position, all hardware was removed, and a short TFNA nail from [employer] was successfully placed through the opening entry point down into the intramedullary canal of the proximal femur. Under fluoroscopic guidance, the level of the implant was advanced until the path for the helical blade was in a good position for the head and neck of the femur. The triple sleeve was then assembled, and a lateral incision at the entry point for the triple sleeve was created with 2-cm incision through skin down to subcutaneous t issue while maintaining good hemostasis. The lateral fascia and vastus lateralis were incised, and t he triple sleeve was advanced until it was flush with bone. The guidewire was then advanced with the triple sleeve under biplanar fluoroscopic imaging, and was found to be center-center on the femoral head and neck. The guidewire was then advanced until it was subcortical in placement. A measurement was taken of 110 mm, and a 105-mm helical blade was selected. The cannulated drill was passed over the guidewire to predrill the path of the helical blade. The helical blade was then placed successfu lly over the guidewire with good tip to apex distance maintained. The traction was then removed, and compression was applied across the helical blade, and the locking facet set screw was then placed pr oximally with a quarter turn after tightening in the counter clockwise direction to loosen the facet screw and allow for a dynamic compression. Once this was done to satisfaction, the assembly jig for the helical blade was taken apart to allow for placement of the distal interlocking screw guide. The distal locking screw triple sleeve guide was assembled and passed through the targeting arm, and a s tab incision was made at the lateral skin down to subcutaneous tissue down to fascia to allow for acc ess to the lateral bone of the proximal femur. The triple sleeve was then advanced until it was flus h with bone, and the drill was passed through the sleeve through the near cortex through the nail, an d through the far cortex, and a measurement was taken. A ____, 5-mm width, 42 mm length screw from [employer] was then placed at the distal interlocking hole successfully bicortically through the nail. F inal fluoroscopic biplanar imaging was taken showing good placement of a short TFNA nail with optimal placement of the helical blade with good tip to apex distance maintained, and an anatomic reduction of the intertrochanteric fracture achieved. The targeting arm and jig for the nail were disassembled , and final biplanar fluoroscopic imaging was taken. All wounds were copiously irrigated and deep fa scial tissue reapproximated with #1 Vicryl suture followed by subcutaneous tissue approximated with 2 .0 Vicryl suture followed by radhika for skin. Sterile dressings were applied, and then the patient was carefully released from all of the extremity holders, and transferred back to his hospital bed. He was then extubated and transferred to PACU in stable condition and tolerated the procedure well. DISPOSITION: The patient will remain as an inpatient and with physical therapy, case management, and social work lecturer for optimal placement. He will be weightbearing as tolerated to the left lower extrem ity with no restrictions. He will be started on DVT prophylaxis in the form of Lovenox 40 mg once da elaine, starting postoperative day #1. He will receive adequate pain control. We will monitor his prog ress, and will follow his progress as an inpatient. Once he is discharged from the hospital, he will follow up in my office at [facility] within 1 week. Lorri Espana MD cc: [id number] TT: 07/22/2016 11:02:33 jn
[2016-07-22] MEDS: HYDROmorphone 1 mg/ml ISec IVP PRN ×2 (13:02→19:43)
--- NOTE | 2016-07-22 13:29 | CP.PCM.PN ---
Subjective - Date & Time of Evaluation Date of Evaluation: 07/22/16 Time of Evaluation: 13:28 - Subjective Subjective: CHIEF COMPLAINTS TODAY : PAIN L HIP SEC TO ORIF ROS. HEENT : N. Resp : No cough, wheezing ,pleuritic CP ,or hemoptysis Cardio : No anginal CP, PND, orthopnea, palpitation GI : No abd.pain, n/v ,diarrhea or GI bleeding . 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 Musculoskel : No joint swelling , PAIN L HIP Derm : No rash Psych : Normal affect. Ext : No swelling ,calf pain PE. Pt. is alert awake in no distress. V.S As noted in the chart Head ,ear nose,throat and eyes : Normal. Neck : Supple with normal carotids. Lungs: Clear air entry. Heart : S1 & S2 normal with S4. No murmur. Abd : Soft non tender with normal bowel sounds. Neuro : Moves all ext. with no localized deficit. Ext : No edema with intact pulses.Non tender calves ROM L HIP RESTRICTED AND PAINFUL Derm : No rashes or decubitus ulcer. LABS/RADIOLOGY: ASSESSMENT/PLAN : [facility] Objective - Vital Signs/Intake and Output Vital Signs (last 24 hours): Temp Pulse Resp BP Pulse Ox 97.9 F 76 20 142/80 98 07/22/16 08:46 07/22/16 08:46 07/22/16 08:46 07/22/16 08:46 07/22/16 08:46 - Medications Medications: Current Medications Acetaminophen (Tylenol 325mg Tab) 650 mg PO Q4 PRN PRN Reason: Fever 101 degrees fahrenheit Docusate Sodium (Colace) 100 mg PO BID [facility] Last Admin: 07/22/16 11:00 Dose: 100 mg Enoxaparin Sodium (Lovenox) 40 mg SC Q24H [facility] Hydromorphone HCl (Dilaudid) 0.5 mg IVP Q4H PRN PRN Reason: Pain, severe (8-10) Last Admin: 07/22/16 13:02 Dose: 0.5 mg Hydromorphone HCl (Dilaudid) 0.5 mg IVP Q10M PRN PRN Reason: Pain, moderate (4-7) Last Admin: 07/22/16 02:42 Dose: 0.5 mg Oxycodone/Acetaminophen (Percocet 5/325 Mg Tab) 2 tab PO Q4H PRN PRN Reason: Pain, moderate (4-7) Stop: 07/24/16 15:36 Last Admin: 07/21/16 22:19 Dose: 2 tab - Labs Labs: 07/22/16 07:37 07/22/16 07:37 PT 12.5 SECONDS (9.7-12.2) H 07/19/16 18:26 INR 1.1 07/19/16 18:26 APTT 33 SECONDS (21-34) 07/19/16 18:26
--- NOTE | 2016-07-22 14:50 | RAD ---
PROCEDURE: HISTORY: LEFT HIP FX COMPARISON: None TECHNIQUE: Total fluoroscopic time utilized during procedure 210.3 second FINDINGS: Submitted images from the current procedure: 9 IMPRESSION: Less than 1 hour fluoroscopic time utilized during performance of the procedure
[2016-07-22] MEDS: Enoxaparin 40 mg Syringe SC SCH (16:19)
[2016-07-22] MEDS: Oxycodone/Acetaminophen 5/325 mg Tab PO PRN (23:13)
[2016-07-23] MEDS: HYDROmorphone 1 mg/ml ISec IVP PRN ×4 (03:57→17:53)
[2016-07-23 07:37] LABS: HEMOGLOBIN F <1.0 Percent (<2.0)
--- NOTE | 2016-07-23 08:06 | CP.PCM.PN ---
Subjective - Date & Time of Evaluation Date of Evaluation: 07/23/16 Time of Evaluation: 08:03 - Subjective Subjective: Patient complaining of left hip pain. Using pillow to try to get into comfortable position. Denies CP/SOB/dizziness/numbness/tingling/nausea/vomiting. Objective - Vital Signs/Intake and Output Vital Signs (last 24 hours): Temp Pulse Resp BP Pulse Ox 99.1 F 59 L 20 150/81 98 07/22/16 23:30 07/22/16 23:30 07/22/16 23:30 07/22/16 23:30 07/22/16 23:30 Intake and Output: 07/23/16 07/23/16 06:59 18:59 Intake Total 300 Output Total 1800 Balance -1500 - Medications Medications: Current Medications Acetaminophen (Tylenol 325mg Tab) 650 mg PO Q4 PRN PRN Reason: Fever 101 degrees fahrenheit Docusate Sodium (Colace) 100 mg PO BID [facility] Last Admin: 07/22/16 17:51 Dose: 100 mg Enoxaparin Sodium (Lovenox) 40 mg SC Q24H [facility] Last Admin: 07/22/16 16:19 Dose: 40 mg Hydromorphone HCl (Dilaudid) 0.5 mg IVP Q4H PRN PRN Reason: Pain, severe (8-10) Last Admin: 07/23/16 03:57 Dose: 0.5 mg Hydromorphone HCl (Dilaudid) 0.5 mg IVP Q10M PRN PRN Reason: Pain, moderate (4-7) Last Admin: 07/22/16 02:42 Dose: 0.5 mg Oxycodone/Acetaminophen (Percocet 5/325 Mg Tab) 2 tab PO Q4H PRN PRN Reason: Pain, moderate (4-7) Stop: 07/24/16 15:36 Last Admin: 07/22/16 23:13 Dose: 2 tab - Labs Labs: 07/22/16 07:37 07/22/16 07:37 PT 12.5 SECONDS (9.7-12.2) H 07/19/16 18:26 INR 1.1 07/19/16 18:26 APTT 33 SECONDS (21-34) 07/19/16 18:26 - Extremities Exam Additional comments: Calves soft NT neg homans +DP pulse thigh less swollen today dressing intact, dry - Neurological Exam Neurological Exam: Alert, Awake, Oriented x3 Neuro motor strength exam: Left Lower Extremity: 5 (DF/PF, toes flex/ext) - Psychiatric Exam Psychiatric exam: Normal Affect, Normal Mood - Skin Skin Exam: Dry, Intact, Normal Color, Warm Assessment and Plan (1) Closed intertrochanteric fracture of left femur Assessment & Plan: POD# 2 s/p left hip troch nail -ortho stable for d/c to rehab -[facility]AT LLE -pain medication -cont VTE proph -f/u [address] Hargrove call for appointment [phone] -d/w Dr. Hargrove, agrees with above Status: Acute
[2016-07-23 08:13] LABS: HEMATOCRIT 30.8 % (35.0-51.0); MEAN CELL VOLUME 87.5 fL (80.0-94.0); MEAN CORPUSCULAR HEMOGLOBIN 29.1 pg (27.0-31.0); MEAN CORPUSCULAR HGB CONC 33.3 g/dL (33.0-37.0); MEAN PLATELET VOLUME 8.2 fL (7.2-11.7); RED CELL DISTRIBUTION WIDTH 14.7 % (11.5-14.5); WHITE BLOOD COUNT 7.8 K/uL (4.8-10.8)
[2016-07-23 09:41] LABS: CHLORIDE 102 mmol/L (98-107); SODIUM 136 mmol/L (132-148)
[2016-07-23 09:44] LABS: BLOOD UREA NITROGEN 20 mg/dL (9-20); CALCIUM 8.2 mg/dl (8.6-10.4); CARBON DIOXIDE 27 mmol/L (22-30); GFR AFRICAN-AMERICAN > 60; GLUCOSE,RANDOM 94 mg/dL (75-110)
--- NOTE | 2016-07-23 13:47 | CP.PCM.DIS ---
Provider - Provider Date of Admission: 07/19/16 18:03 Attending physician: Emily Perdomo MD Time Spent in preparation of Discharge (in minutes): 30 Hospital Course - Lab Results Lab Results: Most Recent Lab Values WBC 7.8 K/uL (4.8-10.8) 07/23/16 07:57 RBC 3.52 Mil/uL (4.40-5.90) L 07/23/16 07:57 Hgb 10.2 g/dL (12.0-18.0) L 07/23/16 07:57 Hct 30.8 % (35.0-51.0) L 07/23/16 07:57 MCV 87.5 fL (80.0-94.0) 07/23/16 07:57 MCH 29.1 pg (27.0-31.0) 07/23/16 07:57 MCHC 33.3 g/dL (33.0-37.0) 07/23/16 07:57 RDW 14.7 % (11.5-14.5) H 07/23/16 07:57 Plt Count 155 K/uL (130-400) 07/23/16 07:57 MPV 8.2 fL (7.2-11.7) 07/23/16 07:57 Neut % (Auto) 65.5 % (50.0-75.0) 07/20/16 06:52 Lymph % (Auto) 21.3 % (20.0-40.0) 07/20/16 06:52 Irion % (Auto) 8.7 % (0.0-10.0) 07/20/16 06:52 Eos % (Auto) 3.4 % (0.0-4.0) 07/20/16 06:52 Baso % (Auto) 1.1 % (0.0-2.0) 07/20/16 06:52 Neut # 3.5 K/uL (1.8-7.0) 07/20/16 06:52 Lymph # 1.1 K/uL (1.0-4.3) 07/20/16 06:52 Irion # 0.5 K/uL (0.0-0.8) 07/20/16 06:52 Eos # 0.2 K/uL (0.0-0.7) 07/20/16 06:52 Baso # 0.1 K/uL (0.0-0.2) 07/20/16 06:52 Retic Count 0.6 % (0.5-1.5) 07/21/16 09:25 Hemoglobin A 96.7 Percent (>96.0) 07/21/16 09:25 Hemoglobin A2 2.3 Percent (1.8-3.5) 07/21/16 09:25 Hemoglobin C 0.0 Percent (0.0-0.0) 07/21/16 09:25 Hemoglobin F () <1.0 Percent (<2.0) 07/21/16 09:25 Hemoglobin S 0.0 Percent (0.0-0.0) 07/21/16 09:25 Variant Hemoglobin 0.0 Percent (0.0-0.0) 07/21/16 09:25 Hemoglobinopathy Red Blood Count 4.03 Mill/mcL (4.20-5.80) L 07/21/16 09:25 Hemoglobinopathy Hct 35.8 % (38.5-50.0) L 07/21/16 09:25 Hemoglobinopathy Hgb 11.6 g/dL (13.2-17.1) L 07/21/16 09:25 Hemoglobinopathy MCV 88.9 fL (80.0-100.0) 07/21/16 09:25 Hemoglobinopathy MCH 28.9 pg (27.0-33.0) 07/21/16 09:25 Hemoglobinopathy RDW 15.3 % (11.0-15.0) H 07/21/16 09:25 Hemoglobinopathy Interp See note 07/21/16 09:25 PT 12.5 SECONDS (9.7-12.2) H 07/19/16 18:26 INR 1.1 07/19/16 18:26 APTT 33 SECONDS (21-34) 07/19/16 18:26 Sodium 136 mmol/L (132-148) 07/23/16 07:57 Potassium 4.0 mmol/L (3.6-5.2) 07/23/16 07:57 Chloride 102 mmol/L (98-107) 07/23/16 07:57 Carbon Dioxide 27 mmol/L (22-30) 07/23/16 07:57 Anion Gap 10 (10-20) 07/23/16 07:57 BUN 20 mg/dL (9-20) 07/23/16 07:57 Creatinine 0.8 MG/DL (0.8-1.5) 07/23/16 07:57 Est GFR ( Amer) > 60 07/23/16 07:57 Est GFR (Non-Af Amer) > 60 07/23/16 07:57 POC Glucose (mg/dL) 115 mg/dL (65-110) H 07/22/16 02:27 Random Glucose 94 mg/dL (75-110) 07/23/16 07:57 Calcium 8.2 mg/dl (8.6-10.4) L 07/23/16 07:57 Ferritin 56.8 ng/mL 07/21/16 09:25 Total Bilirubin 0.5 mg/dL (0.2-1.3) 07/20/16 06:52 AST 15 U/L (17-59) L D 07/20/16 06:52 ALT 20 U/L (21-72) L D 07/20/16 06:52 Alkaline Phosphatase 59 U/L (38-126) 07/20/16 06:52 Total Protein 5.6 g/dL (6.3-8.3) L 07/20/16 06:52 Albumin 2.9 g/dL (3.5-5.0) L D 07/20/16 06:52 Globulin 2.7 gm/dL (2.2-3.9) 07/20/16 06:52 Albumin/Globulin Ratio 1.1 (1.0-2.1) 07/20/16 06:52 Vitamin B12 261 pg/mL (239-931) 07/21/16 09:25 Folate 10.6 ng/mL 07/21/16 09:25 Urine Color Yellow (YELLOW) 07/19/16 22:48 Urine Clarity Clear (Clear) 07/19/16 22:48 Urine pH 5.0 (5.0-8.0) 07/19/16 22:48 Ur Specific [place]dwell 1.024 (1.003-1.030) 07/19/16 22:48 Urine Protein Negative mg/dL (NEGATIVE) 07/19/16 22:48 Urine Glucose (UA) Normal mg/dL (Normal) 07/19/16 22:48 Urine Ketones Negative mg/dL (NEGATIVE) 07/19/16 22:48 Urine Blood Negative (NEGATIVE) 07/19/16 22:48 Urine Nitrate Negative (NEGATIVE) 07/19/16 22:48 Urine Bilirubin Negative (NEGATIVE) 07/19/16 22:48 Urine Urobilinogen Normal mg/dL (0.2-1.0) 07/19/16 22:48 Ur Leukocyte Esterase Neg Abhijit/uL (Negative) 07/19/16 22:48 Urine WBC (Auto) 4 /hpf (0-5) 07/19/16 22:48 Urine RBC (Auto) 1 /hpf (0-3) 07/19/16 22:48 Ur Squamous Epith Cells 1 /hpf (0-5) 07/19/16 22:48 Urine Bacteria Rare (<OCC) 07/19/16 22:48 Hepatitis A IgM Ab Negative (NEGATIVE) 07/21/16 09:25 Hep Bs Antigen Negative (NEGATIVE) 07/21/16 09:25 Hep B Core IgM Ab Negative (NEGATIVE) 07/21/16 09:25 Hepatitis C Antibody Negative (NEGATIVE) 07/21/16 09:25 HIV 1&2 Antibody Screen Negative (NEGATIVE) 07/21/16 09:25 Blood Type O POSITIVE 07/19/16 18:26 Antibody Screen Negative 07/19/16 18:26 - Hospital Course Hospital Course: 56 years old, black male with history of hypertension for 3-4 days ago and sustained pain in the left hip region. Patient was seen in the emergency room off [facility]. An x-ray was reported as negative. Patient continued to have pain and limping and presented to [facility]. He an x-ray showed a fracture of the left femoral head. PAST HIST. Hypertension. Heroine abuse. Patient was admitted in the beginning of 2017 for heroine abuse and now continues to use. the last one was 2 days ago. PT HAD L ORIF WITH NO COMPLICATION PT WAS TRANSFERRED TO [facility] IN STABLE CONDITION Discharge Exam - Head Exam Head Exam: ATRAUMATIC Discharge Plan - Follow Up Plan Condition: STABLE Disposition: HOME/ ROUTINE
[2016-07-23] MEDS: Enoxaparin 40 mg Syringe SC SCH (16:26)
[2016-07-23 17:19] VITALS: BP 135/75; PULSE 86; RESP 20; TEMP 98.6; O2SAT 98
== END 2016-07-23 19:15 | DRG 482 ==
LOC: C.ER 16:15 → C.9E 18:03 → C.6T 19:21
PROVIDERS: ADMIT Internal Medicine Cardiovascular Disease; ATTEND Internal Medicine Cardiovascular Disease
PROC: 0QS706Z Reposition Left Upper Femur with Intramedullary Internal Fixation Device, Open Approach (ICD-10-PCS; principal; 2016-07-21 15:08)
DX: S72.142A Displaced intertrochanteric fracture of left femur, initial encounter for closed fracture (principal); D69.6 Thrombocytopenia, unspecified; Y93.01 Activity, walking, marching and hiking; F11.90 Opioid use, unspecified, uncomplicated; D64.9 Anemia, unspecified; F17.210 Nicotine dependence, cigarettes, uncomplicated; I10 Essential (primary) hypertension; W01.0XXA Fall on same level from slipping, tripping and stumbling without subsequent striking against object, initial encounter

== ENCOUNTER 2016-08-21 03:40 | Emergency (ER) | payer MEDICAID, MEDICARE ==
[2016-08-21 03:40] VITALS: BMI 18.6
--- NOTE | 2016-08-21 04:02 | C.PDOC ---
History Of Present Illness A 56 y/o M c/o mechanically falling backwards tonight injuring his tail bone area. Denies weakness, numbness, nausea, vomiting, diarrhea, fever, chills, or any other complaints. Time Seen by Provider: 08/21/16 04:05 Chief Complaint (Nursing): Hip Pain History Per: Patient History/Exam Limitations: no limitations Onset/Duration Of Symptoms: Hrs Current Symptoms Are (Timing): Still Present Severity: Mild Recent travel outside of the [place]: No Additional History Per: Patient - Hip Description Of Injury: Fell Past Medical History Reviewed: Historical Data, Nursing Documentation, Vital Signs Vital Signs: Last Vital Signs Temp 97.4 F L 08/21/16 03:50 Pulse 73 08/21/16 03:50 Resp 16 08/21/16 03:50 BP 130/86 08/21/16 03:50 Pulse Ox 96 08/21/16 05:12 - Medical History PMH: HTN Denies: Diabetes, Hepatitis, HIV, Chronic Kidney Disease, Seizures, Sexually Transmitted Disease Other Surgeries: left hip-open reduction and internal fixation - [facility] Procedures DETOXIFICATION SERVICES FOR SUBSTANCE ABUSE TREATMENT (04/29/15) EXCISION OF TOE NAIL, EXTERNAL APPROACH (07/23/16) EXERCISE TRMT MUSCULOSK LOW BACK/LE W ASSIST EQUIP (07/23/16) GAIT TRAINING/AMBULAT TREATMENT USING ASSIST EQUIPMENT (07/23/16) HOME MANAGEMENT TREATMENT USING ASSIST EQUIPMENT (07/23/16) REPOSITION LEFT UPPER FEMUR WITH INTRAMED FIX, OPEN APPROACH (07/19/16) Family History: States: Unknown Family Hx - Social History Hx Tobacco Use: No Hx Alcohol Use: Yes Hx Substance Use: Yes (heroine use) - Immunization History Hx Tetanus Toxoid Vaccination: No Hx Influenza Vaccination: No Hx Pneumococcal Vaccination: No Review Of Systems Except As Marked, All Systems Reviewed And Found Negative. Constitutional: Negative for: Fever, Chills Gastrointestinal: Negative for: Nausea, Vomiting, Diarrhea Musculoskeletal: Positive for: Other (Tail bone pain) Neurological: Negative for: Weakness, Numbness Physical Exam - Physical Exam Appears: Non-toxic, No Acute Distress Skin: Warm, Dry Head: Atraumatic, Normacephalic Cardiovascular: Rhythm Regular Respiratory: Normal Breath Sounds, No Decreased Breath Sounds, No Accessory Muscle Use, No Rales, No Rhonchi, No Wheezing Gastrointestinal/Abdominal: Soft, No Tenderness Back: No CVA Tenderness, Vertebral Tenderness (Mild tenderness to the tail bone area) Extremity: Normal ROM (Lower extremities no limitaitons) Extremity: Bilateral: Normal Color And Temperature Neurological/Psych: Oriented x3, Normal Speech, Normal Cognition, Normal Motor, Normal Sensation, Other (No focal deficit) Gait: Steady ED Course And Treatment O2 Sat by Pulse Oximetry: 96 (RA) Pulse Ox Interpretation: Normal Medical Decision Making Medical Decision Making: Impression: A 56 y/o M c/o mechanically falling backwards tonight injuring his tail bone area. Plans: -XRAY Sacrum Disposition Counseled Patient/Family Regarding: Diagnosis - Disposition Referrals: [facility] [Outside] Disposition: HOME/ ROUTINE Disposition Time: 05:58 Condition: STABLE Prescriptions: Cyclobenzaprine [Cyclobenzaprine HCl] 10 mg PO TID #20 tab Naproxen [Naprosyn Tab] 375 mg PO TIDPC #20 tab Instructions: Back Pain (ED) - POA Present On Arrival: None - Clinical Impression Clinical Impression: Back pain - Scribe Statement The provider has reviewed the documentation as recorded by the Scribe Abby astorga All medical record entries made by the Scribe were at my direction and personally dictated by me. I have reviewed the chart and agree that the record accurately reflects my personal performance of the history, physical exam, medical decision making, and the department course for this patient. I have also personally directed, reviewed, and agree with the discharge instructions and disposition.
--- NOTE | 2016-08-21 11:58 | RAD ---
PROCEDURE: Radiographs of the Sacrum and Coccyx HISTORY: injury/ pain COMPARISON: None available. TECHNIQUE: Frontal and lateral views of the sacrum and coccyx FINDINGS: BONES: Sacrum and coccyx unremarkable. No fracture or focal lesion. Status post internal fixation at the lower lumbar spine SACROILIAC JOINTS: Unremarkable. OTHER FINDINGS: None. IMPRESSION: No evidence of acute fracture or subluxation and the sacrum and coccyx.
[2016-08-21 12:32] VITALS: BP 129/76; PULSE 76; RESP 20; TEMP 97.9; O2SAT 98
== END 2016-08-21 09:01 | disposition home or self-care (01) ==
LOC: C.ER 03:40
DX: M54.5 Low back pain (principal)
CPT/HCPCS: 72220; 96372; 99285; J1885

== ENCOUNTER 2016-08-30 00:53 | Emergency (ER) | payer MEDICARE ==
[2016-08-30 00:54] VITALS: BMI 18.6
--- NOTE | 2016-08-30 01:31 | C.PDOC ---
History Of Present Illness A 56 y/o M c/o dysuria and intermittent hematuria for 4 days. Pt is sexually active w/o protection with his . Denies fever, chills, abdominal pain, blood thinner use, or any other complaints. Time Seen by Provider: 08/30/16 01:27 Chief Complaint (Nursing): Male Genitourinary History Per: Patient History/Exam Limitations: no limitations Onset/Duration Of Symptoms: Days Current Symptoms Are (Timing): Still Present Severity: Mild Associated Symptoms: denies: Fever, Chills Recent travel outside of the [place]: No Additional History Per: Patient Past Medical History Reviewed: Historical Data, Nursing Documentation, Vital Signs Vital Signs: Last Vital Signs Temp 98.8 F 08/30/16 02:53 Pulse 89 08/30/16 02:53 Resp 20 08/30/16 02:53 BP 128/70 08/30/16 02:53 Pulse Ox 97 08/30/16 18:04 - Medical History PMH: HTN Denies: Diabetes, Hepatitis, HIV, Chronic Kidney Disease, Seizures, Sexually Transmitted Disease - [facility] Procedures DETOXIFICATION SERVICES FOR SUBSTANCE ABUSE TREATMENT (04/29/15) EXCISION OF TOE NAIL, EXTERNAL APPROACH (07/23/16) EXERCISE TRMT MUSCULOSK LOW BACK/LE W ASSIST EQUIP (07/23/16) GAIT TRAINING/AMBULAT TREATMENT USING ASSIST EQUIPMENT (07/23/16) HOME MANAGEMENT TREATMENT USING ASSIST EQUIPMENT (07/23/16) REPOSITION LEFT UPPER FEMUR WITH INTRAMED FIX, OPEN APPROACH (07/19/16) Family History: States: Unknown Family Hx - Social History Hx Tobacco Use: No Hx Alcohol Use: Yes Hx Substance Use: No (former heroine abuser) - Immunization History Hx Tetanus Toxoid Vaccination: No Hx Influenza Vaccination: No Hx Pneumococcal Vaccination: No Review Of Systems Except As Marked, All Systems Reviewed And Found Negative. Constitutional: Negative for: Fever, Chills Gastrointestinal: Negative for: Abdominal Pain Genitourinary: Positive for: Dysuria, Hematuria Physical Exam - Physical Exam Appears: Non-toxic, No Acute Distress, Other (Sleeping comfortably) Skin: Warm, Dry Head: Atraumatic, Normacephalic Cardiovascular: Rhythm Regular Respiratory: Normal Breath Sounds, No Rales, No Rhonchi, No Wheezing Gastrointestinal/Abdominal: Soft, No Tenderness Back: No CVA Tenderness Neurological/Psych: Oriented x3, Normal Speech, Normal Cognition, Other ED Course And Treatment O2 Sat by Pulse Oximetry: 97 (RA) Pulse Ox Interpretation: Normal Medical Decision Making Medical Decision Making: Impression: A 56 y/o M c/o dysuria and intermittent hematuria for 4 days. Plans: -Chlamydia/GC -UA -Reassess pt sleeping comfortably throughtout ed stay denies abdominal/flank pain. no gross hematuria. will treat for uti. pt encouraged to seek outpt f/u for complete w/u with urology. Disposition - Disposition Referrals: [facility] [Outside] [facility] [Outside] Keyshawn Sánchez MD [Staff Provider] - Disposition: HOME/ ROUTINE Disposition Time: 03:00 Condition: STABLE Additional Instructions: please follow up with your doctor/clinic and specialist. return to er with worsening symptoms or concerns. Prescriptions: Nitrofurantoin Macrocrystals [Macrobid] 100 mg PO BID #14 cap Instructions: Urinary Tract Infection in Men (ED), Acute Hematuria (ED) Forms: [employer] (Czech) - Clinical Impression Clinical Impression: UTI (urinary tract infection), Hematuria - Scribe Statement The provider has reviewed the documentation as recorded by the Scribe Kristy astorga All medical record entries made by the Scribe were at my direction and personally dictated by me. I have reviewed the chart and agree that the record accurately reflects my personal performance of the history, physical exam, medical decision making, and the department course for this patient. I have also personally directed, reviewed, and agree with the discharge instructions and disposition.
[2016-08-30 02:08] LABS: URINE BILIRUBIN NEGATIVE (NEGATIVE); URINE BLOOD 3+ (NEGATIVE); URINE CLARITY Hazy (Clear); URINE COLOR Yellow (YELLOW); URINE GLUCOSE (UA) NORMAL (Normal); URINE LEUKOCYTE ESTERASE 3+ Leu/uL (Negative); URINE NITRATE NEGATIVE (NEGATIVE); URINE PROTEIN 2+ mg/dL (NEGATIVE)
[2016-08-30 02:54] VITALS: BP 128/70; PULSE 89; RESP 20; TEMP 98.8
[2016-08-30 18:04] VITALS: O2SAT 97
== END 2016-08-30 03:22 | disposition home or self-care (01) ==
LOC: C.ER 00:53
DX: N39.0 Urinary tract infection, site not specified (principal); R31.9 Hematuria, unspecified

== ENCOUNTER 2016-09-09 10:46 | Inpatient (IN) | payer MEDICARE ==
[2016-09-09 10:47] VITALS: BMI 18.6
[2016-09-09 12:16] LABS: BASO % 0.6 % (0.0-2.0); EOS # 0.1 K/uL (0.0-0.7); EOS % 0.9 % (0.0-4.0); LYMPH # 1.2 K/uL (1.0-4.3); LYMPH % 18.3 % (20.0-40.0); MEAN CORPUSCULAR HEMOGLOBIN 28.8 pg (27.0-31.0); MEAN CORPUSCULAR HGB CONC 32.3 g/dL (33.0-37.0); MEAN PLATELET VOLUME 7.8 fL (7.2-11.7); MONO # 0.2 K/uL (0.0-0.8); MONO % 3.3 % (0.0-10.0); NRBC % 0.1 % (0.0-2.0); RED CELL DISTRIBUTION WIDTH 15.1 % (11.5-14.5); WHITE BLOOD COUNT 6.7 K/uL (4.8-10.8)
[2016-09-09 12:23] LABS: CHLORIDE 101 mmol/L (98-107)
[2016-09-09 12:24] LABS: POTASSIUM 3.5 mmol/L (3.6-5.2); SODIUM 144 mmol/L (132-148)
[2016-09-09 12:26] LABS: GFR AFRICAN-AMERICAN > 60
[2016-09-09 12:27] LABS: ALKALINE PHOSPHATASE 127 U/L (38-126); ALT/SGPT 25 U/L (21-72); AST/SGOT 16 U/L (17-59); BILIRUBIN,TOTAL 0.4 mg/dL (0.2-1.3); BLOOD UREA NITROGEN 12 mg/dL (9-20); CALCIUM 8.6 mg/dl (8.6-10.4); CARBON DIOXIDE 29 mmol/L (22-30); GLUCOSE,RANDOM 103 mg/dL (75-110); TOTAL PROTEIN 6.8 g/dL (6.3-8.3)
[2016-09-09 14:22] LABS: RBC URINE 10 /hpf (0-3); URINE BACTERIA RARE (<OCC); URINE BILIRUBIN NEGATIVE (NEGATIVE); URINE BLOOD 1+ (NEGATIVE); URINE COLOR Yellow (YELLOW); URINE GLUCOSE (UA) NORMAL (Normal); URINE KETONE NEGATIVE (NEGATIVE); URINE LEUKOCYTE ESTERASE 3+ Leu/uL (Negative); URINE PROTEIN 1+ mg/dL (NEGATIVE); URINE UROBILINOGEN NORMAL mg/dL (0.2-1.0); WBC URINE 262 /hpf (0-5)
--- NOTE | 2016-09-09 14:58 | C.PDOC ---
History Of Present Illness 56 y/o male with PMH HTN presents to the ED for evaluation of left hip pain s/p fall on to it this morning. Patient states he has had frequent falls in the last 2 months. Notes this morning he tripped over a curb. denies head trauma, LOC, n/v, dizziness. Pt had left hip fracture and ORIF by Dr. Stovall on . Pt notes since he has not been able to walk well , even with cane. Pt was seen here on 08/21/16 s/p fall also. Patient uses heroin (inhales, no IV)and is requesting assistance to stop use of heroin. No chest pain, SOB, fever, or travel. No SI and HI. Time Seen by Provider: 09/09/16 11:02 Chief Complaint (Nursing): Hip Pain History Per: Patient History/Exam Limitations: no limitations Onset/Duration Of Symptoms: Hrs Current Symptoms Are (Timing): Still Present Recent travel outside of the [place]: No Additional History Per: Patient - Hip Description Of Injury: Fell Past Medical History Reviewed: Historical Data, Nursing Documentation, Vital Signs Vital Signs: Last Vital Signs Temp 98.2 F 09/09/16 17:00 Pulse 62 09/09/16 17:00 Resp 20 09/09/16 17:00 BP 119/70 09/09/16 17:00 Pulse Ox 99 09/09/16 17:00 - Medical History PMH: HTN Denies: Diabetes, Hepatitis, HIV, Chronic Kidney Disease, Seizures, Sexually Transmitted Disease Surgical History: Back Surgery - [facility] Procedures DETOXIFICATION SERVICES FOR SUBSTANCE ABUSE TREATMENT (04/29/15) EXCISION OF TOE NAIL, EXTERNAL APPROACH (07/23/16) EXERCISE TRMT MUSCULOSK LOW BACK/LE W ASSIST EQUIP (07/23/16) GAIT TRAINING/AMBULAT TREATMENT USING ASSIST EQUIPMENT (07/23/16) HOME MANAGEMENT TREATMENT USING ASSIST EQUIPMENT (07/23/16) REPOSITION LEFT UPPER FEMUR WITH INTRAMED FIX, OPEN APPROACH (07/19/16) Family History: States: Unknown Family Hx - Social History Hx Tobacco Use: No Hx Alcohol Use: No Hx Substance Use: Yes - Immunization History Hx Tetanus Toxoid Vaccination: No Hx Influenza Vaccination: No Hx Pneumococcal Vaccination: No Review Of Systems Except As Marked, All Systems Reviewed And Found Negative. Constitutional: Negative for: Fever, Chills Cardiovascular: Negative for: Chest Pain Respiratory: Negative for: Shortness of Breath Gastrointestinal: Negative for: Nausea, Vomiting, Abdominal Pain Musculoskeletal: Positive for: Other (left hip pain). Negative for: Back Pain Skin: Negative for: Rash, Bruising Neurological: Negative for: Weakness, Numbness Physical Exam - Physical Exam Appears: Non-toxic, No Acute Distress, Chronically Ill Skin: Warm, Dry, Other (Intact radhika to left hip, dry, no erythema, no discharge) Head: Atraumatic, Normacephalic Eye(s): bilateral: Normal Inspection, EOMI Nose: Normal Oral Mucosa: Moist Neck: Normal ROM, Supple Chest: Symmetrical Cardiovascular: Rhythm Regular, No Murmur Respiratory: Normal Breath Sounds, No Rales, No Rhonchi, No Wheezing Gastrointestinal/Abdominal: Soft, No Tenderness Back: Normal Inspection Extremity: Normal ROM, Tenderness (Left hip), No Deformity, No Swelling Neurological/Psych: Oriented x3, Normal Speech, No Normal Motor (b/l muscle weak ), Normal Sensation ED Course And Treatment - Laboratory Results Result Diagrams: 09/09/16 12:10 09/09/16 12:10 O2 Sat by Pulse Oximetry: 97 (RA) Pulse Ox Interpretation: Normal Progress Note: Blood work, urinalysis, hip x-ray ordered and reviewed. Patient was evaluated by physical therapy who state that patient is unsteady, and does not feel safe to discharge patient home. Spoke with Dr. Levine who agrees upon plan and admission. Disposition - Disposition Disposition: HOSPITALIZED Disposition Time: 13:00 Condition: STABLE - Clinical Impression Clinical Impression: UTI (urinary tract infection), Hip fracture, Unsteady gait - PA / [employer] / Resident Statement MD/DO has reviewed & agrees with the documentation as recorded. - Scribe Statement The provider has reviewed the documentation as recorded by the Nidaibe Chad Shin All medical record entries made by the Osorio were at my direction and personally dictated by me. I have reviewed the chart and agree that the record accurately reflects my personal performance of the history, physical exam, medical decision making, and the department course for this patient. I have also personally directed, reviewed, and agree with the discharge instructions and disposition.
--- NOTE | 2016-09-09 15:51 | RAD ---
HISTORY: trauma COMPARISON: No prior FINDINGS: BONES: Status post move ORIF of an old femoral neck fracture.. No acute fracture. JOINTS: Normal. No osteoarthritis. SOFT TISSUE: Normal. OTHER FINDINGS: None . IMPRESSION: Status post move ORIF of an old femoral neck fracture.. No acute fracture.
--- NOTE | 2016-09-09 15:53 | CP.PCM.PN ---
Subjective - Date & Time of Evaluation Date of Evaluation: 09/09/16 Time of Evaluation: 16:00 - Subjective Subjective: Chief complaint: Left Hip ORIF HPI: 56 year old Male with hx of Herniated L5 disc and HTN. He was admitted to the [facility] on 07/19/16 and diagnosed with mechanical left Intratrochanteric Fracture and underwent ORIF on 07/21/16, Orthopedist was Dr Skinner. He tolerated the surgery well and received PT at [facility]. He presents to the ED today because he fell at 08:10 this morning. Patient states he was walking to the store and was high from snorting one bag of heroin an hour prior. Patient states he tripped over the sidewalk curb. Patient denies losing consciousness and states he hit his head in the temporal area on the left. Patient can recall falling and denies dizziness/visual changes both prior to the fall and currently. Patient states he has a headache located over the frontal and left temporal areas. Patient fell on his left knee and feels pain from his left hip into the left knee, which he rates 9/10. Patient also expresses interest in detox from heroin use. Patient denies fevers/ chills, chest pain, palpitations, SOB, dizziness and recent illness. Patient denied suicidal/homicidal ideation at this time because he felt like we wanted to help but but stated he has been trying to go to detox but has not been accepted. He was requesting a detox bed and stated that he felt in the previous day no one cared and he felt like he "wanted to end it. He stated he thought about overdosing. PMH: Uncontrolled HTN; Herniated disc L5, hip fx, polysubstance abuse PSH; Back surgery for Herniated disc/ Left Hip ORIF SH: Smokes 1/2 PPD; No alcohol; Snorts 5 bags of heroin/day last use this am at 7AM denies IV use, only inhales; Lives with ; Disabled because of medical reasons FH: Mother () - HTN and cerebral aneurysm, rest unknown Allergies: NKDA Medication: denies use of meds, will take tylenol/asa as needed for pain (or uses heroin for pain) PCP: Not on Staff, can't remember name Objective - Vital Signs/Intake and Output Vital Signs (last 24 hours): Temp Pulse Resp BP Pulse Ox 98.8 F 72 16 116/74 97 09/09/16 15:39 09/09/16 15:39 09/09/16 15:39 09/09/16 15:39 09/09/16 15:41 - Constitutional Appears: Non-toxic, No Acute Distress, Cachectic, Chronically Ill - Head Exam Head Exam: ATRAUMATIC, NORMAL INSPECTION - Eye Exam Eye Exam: EOMI, Normal appearance, PERRL Pupil Exam: NORMAL ACCOMODATION - ENT Exam ENT Exam: Mucous Membranes Moist - Respiratory Exam Respiratory Exam: Clear to Ausculation Bilateral, NORMAL BREATHING PATTERN. absent: Rales, Rhonchi, Wheezes, Respiratory Distress - Cardiovascular Exam Cardiovascular Exam: REGULAR RHYTHM, +S1, +S2 - GI/Abdominal Exam GI & Abdominal Exam: Soft, Normal Bowel Sounds. absent: Distended, Firm, Guarding, Tenderness - Extremities Exam Extremities Exam: Normal Inspection. absent: Calf Tenderness, Pedal Edema Additional comments: muscle wasting. able to move all ext but weak. - Back Exam Back Exam: CVA tenderness (L), CVA tenderness (R), NORMAL INSPECTION. absent: paraspinal tenderness - Neurological Exam Neurological Exam: Alert, Awake, CN II-XII Intact, Oriented x3 Additional comments: uses cane to ambulate - Psychiatric Exam Psychiatric exam: Normal Affect, Normal Mood. absent: Homicidal Ideation, Suicidal Ideation - Skin Skin Exam: Dry, Intact, Normal Color, Warm Assessment and Plan - Assessment and Plan (Free Text) Assessment: Fall f/u CT head w/o contrast Hip/Pevis Xray - no acute fracture Physical therapy eval OT Substance Use Disorder f/u UDS Dr. Stiles consulted, help appreciated Last heroin use this morning at 7AM inhaled Denies IV drug use UTI 1+ protein, 1+ blood 3+ LE 262 WBC 10 RBC Ceftriaxone f/u urine culture, G/C Monitor S/P Hip fracture repair mechanical left Intratrochanteric Fracture and underwent ORIF on the 07/21/[address] Skinner Tobacco Use Disorder Nicotine patch Prophylaxis Regular Diet Will start anticoagulation if head bleed ruled out Pepcid 20mg PO BID
[2016-09-09] MEDS ORDERED: Potassium Chloride 20 mEq ER Tab PO STA ×3 (16:41→18:23)
--- NOTE | 2016-09-09 16:57 | CT ---
PROCEDURE: CT HEAD WITHOUT CONTRAST. HISTORY: fall, hit L temporal region of head COMPARISON: None available. TECHNIQUE: Axial computed tomography images were obtained through the head/brain without intravenous contrast. Radiation dose: Total exam DLP = 780 mGy-cm. This CT exam was performed using one or more of the following dose reduction techniques: Automated exposure control, adjustment of the mA and/or kV according to patient size, and/or use of iterative reconstruction technique. FINDINGS: HEMORRHAGE: No intracranial hemorrhage. BRAIN: No mass effect or edema. No atrophy or chronic microvascular ischemic changes. VENTRICLES: Unremarkable. No hydrocephalus. CALVARIUM: Unremarkable. PARANASAL SINUSES: Unremarkable as visualized. No significant inflammatory changes. MASTOID AIR CELLS: Unremarkable as visualized. No inflammatory changes. OTHER FINDINGS: None. IMPRESSION: Normal CT of the Head.
[2016-09-10 07:55] LABS: BASO % 0.6 % (0.0-2.0); EOS # 0.1 K/uL (0.0-0.7); HEMATOCRIT 35.3 % (35.0-51.0); LYMPH # 1.8 K/uL (1.0-4.3); LYMPH % 25.5 % (20.0-40.0); MEAN CELL VOLUME 89.2 fL (80.0-94.0); MEAN CORPUSCULAR HGB CONC 32.6 g/dL (33.0-37.0); MEAN PLATELET VOLUME 7.7 fL (7.2-11.7); MONO # 0.3 K/uL (0.0-0.8); MONO % 4.5 % (0.0-10.0); RED CELL DISTRIBUTION WIDTH 14.8 % (11.5-14.5); WHITE BLOOD COUNT 6.9 K/uL (4.8-10.8)
[2016-09-10 08:26] LABS: CHLORIDE 103 mmol/L (98-107); SODIUM 144 mmol/L (132-148)
[2016-09-10 08:27] LABS: POTASSIUM 3.7 mmol/L (3.6-5.2)
[2016-09-10 08:28] LABS: ALKALINE PHOSPHATASE 111 U/L (38-126); AST/SGOT 15 U/L (17-59); BILIRUBIN,TOTAL 0.3 mg/dL (0.2-1.3); BLOOD UREA NITROGEN 15 mg/dL (9-20); CARBON DIOXIDE 29 mmol/L (22-30); GFR AFRICAN-AMERICAN > 60; TOTAL PROTEIN 6.1 g/dL (6.3-8.3)
[2016-09-10 08:29] LABS: ALT/SGPT 22 U/L (21-72); CALCIUM 8.3 mg/dl (8.6-10.4); GLUCOSE,RANDOM 100 mg/dL (75-110); MAGNESIUM 2.1 mg/dL (1.6-2.3); PHOSPHOROUS 3.1 mg/dL (2.5-4.5)
--- NOTE | 2016-09-10 16:43 | CP.PCM.PN ---
Subjective - Date & Time of Evaluation Date of Evaluation: 09/10/16 Time of Evaluation: 07:50 - Subjective Subjective: Medicine Note- Dr. Levine's service Patient was seen and examined at bedside. Patient reports no acute complaints at this time. He says he still gets pain in his left leg when he tries to walk. He is requesting to go to [facility] for rehab. He also expresses a desire to stop using heroin. No events overnight, per nursing. Objective - Vital Signs/Intake and Output Vital Signs (last 24 hours): Temp Pulse Resp BP Pulse Ox 98.2 F 73 20 139/81 100 09/10/16 07:52 09/10/16 15:34 09/10/16 07:52 09/10/16 15:34 09/10/16 15:34 Intake and Output: 09/10/16 09/10/16 06:59 18:59 Intake Total 610 350 Output Total 700 600 Balance -90 -250 - Medications Medications: Current Medications Escitalopram Oxalate (Lexapro) 5 mg PO DAILY [facility] Last Admin: 09/10/16 15:58 Dose: 5 mg Famotidine (Pepcid) 20 mg PO BID [facility] Last Admin: 09/10/16 10:27 Dose: 20 mg Hydroxyzine HCl (Atarax) 25 mg PO Q4H PRN PRN Reason: Anxiety Ceftriaxone Sodium 1 gm/ (Sodium Chloride) 100 mls @ 200 mls/hr IVPB Q24H [facility] Last Admin: 09/09/16 18:37 Dose: 200 mls/hr Ibuprofen (Motrin Tab) 400 mg PO Q6H PRN PRN Reason: Pain, moderate (4-7) Methadone HCl (Methadone) 0 mg PO Q24H [facility] PRN Reason: Taper Stop: 09/14/16 08:59 Trazodone HCl (Desyrel) 50 mg PO HS [facility] - Labs Labs: 09/10/16 07:15 09/10/16 07:15 - Constitutional Appears: Non-toxic, No Acute Distress - Head Exam Head Exam: ATRAUMATIC, NORMAL INSPECTION, NORMOCEPHALIC - Eye Exam Pupil Exam: NORMAL ACCOMODATION, PERRL - ENT Exam ENT Exam: Mucous Membranes Moist - Respiratory Exam Respiratory Exam: Clear to Ausculation Bilateral, NORMAL BREATHING PATTERN. absent: Prolonged Expiratory Phase, Rales, Rhonchi, Wheezes - Cardiovascular Exam Cardiovascular Exam: REGULAR RHYTHM, +S1, +S2 - GI/Abdominal Exam GI & Abdominal Exam: Soft, Normal Bowel Sounds. absent: Tenderness, Diminished Bowel Sounds, Hypoactive Bowel Sounds, Pulsatile Mass - Extremities Exam Extremities Exam: Normal Capillary Refill Additional comments: tenderness superior to right knee/ inferior thigh - Neurological Exam Neurological Exam: Alert, Awake, Oriented x3 - Psychiatric Exam Psychiatric exam: Normal Affect, Normal Mood - Skin Skin Exam: Dry, Intact, Normal Color, Warm Assessment and Plan - Assessment and Plan (Free Text) Assessment: Fall CT Head w/o contrast negative for intracranial bleed Hip/Pevis Xray - no acute fracture Physical therapy eval- recommends SAT OT Substance Use Disorder UDS- positive opiates Dr. Stiles consulted, help appreciated Last heroin use this morning at 7AM inhaled Denies IV drug use UTI 1+ protein, 1+ blood 3+ LE 262 WBC 10 RBC Ceftriaxone Urine culture- prelim- gram negative rods Monitor S/P Hip fracture repair mechanical left Intratrochanteric Fracture and underwent ORIF on the 07/21/[address] Skinner Tobacco Use Disorder Nicotine patch Prophylaxis Regular Diet Heparin 5000U SC Q8h Pepcid 20mg PO BID Dispo: Will need 3 overnights before patient is able to go to [facility]. Case management aware.
--- NOTE | 2016-09-10 22:19 | PCM.PSYCH ---
Initial Psychiatric Evaluation - Initial Psychiatric Evaluation Type of Admission: Voluntary Legal Status: Capacity Chief Complaint (in patient's own words): "I need help" History of Present Illness and Precipitating Events: The patient is seen, chart reviewed and case discussed. This is a 56-year-old -Guyanese male, lives with his in [place] , on disability. He was here in 2016 for a detox and is known to the ad writer. He claims he is using 10 bags of heroin intranasally. He denies alcohol, cocaine and other drugs. He smokes half pack per day cigarettes. He reports depressive symptoms but not suicidal. No psychosis or lani elicited Past psych history: Depression Medical history: Hypertension and he also claims he has severe pain from a broken hip in July of this year and then he recently fell again and got admitted. Patient also has disc hernia and "screws" in his spine. Family psych history: Not known Current Medications: Active Medications Generic Name Dose Route Start Last Admin Trade Name Freq PRN Reason Stop Dose Admin Escitalopram Oxalate 5 mg 09/10/16 13:00 09/10/16 15:58 Lexapro PO 5 mg DAILY E[facility]T Administration Famotidine 20 mg 09/09/16 18:00 09/10/16 16:59 Pepcid PO 20 mg BID EMMETT Administration Heparin Sodium (Porcine) 5,000 units 09/10/16 22:00 09/10/16 21:13 Heparin SC 5,000 units Q8 EMMETT Administration Hydroxyzine HCl 25 mg 09/10/16 12:55 Atarax PO Q4H PRN Anxiety Ceftriaxone Sodium 1 gm/ 100 mls @ 200 mls/hr 09/09/16 17:00 09/10/16 16:59 Sodium Chloride IVPB 200 mls/hr Q24H EMMETT Administration Ibuprofen 400 mg 09/10/16 12:55 Motrin Tab PO Q6H PRN Pain, moderate (4-7) Methadone HCl 0 mg 09/11/16 09:00 Methadone PO 09/14/16 08:59 Q24H EMMETT Taper Trazodone HCl 50 mg 09/10/16 22:00 09/10/16 21:13 Desyrel PO 50 mg HS EMMETT Administration Past Psychiatric History - Past Psychiatric History Previous Treatment History: None Pertinent Medical Hx (Current Medical&Sleep Prob, Allergies): Allergies Allergy/AdvReac Type Severity Reaction Status Date / Time No Known Allergies Allergy Verified 09/09/16 11:04 No Known Home Med 09/09/16 Review of Systems - Psychiatric Psychiatric: Abnormal Sleep Pattern, Anxiety. absent: Hallucinations, Homicidal Ideation, Suicidal Ideation Mental Status Examination - Personal Presentation Personal Presentation: Looks older than stated age - Affect Affect: Constricted - Motor Activity Motor Activity: Calm - Reliability in Providing Information Reliability in Providing Information: Fair - Speech Speech: Organized - Mood Mood: Depressed, Anxious - Formal Thought Process Formal Thought Process: No Impairment - Cognitive Functions Orientation: Person, Place, Situation, Time Sensorium: Alert Attention/Concentration: Easily distracted Abstract Thinking: [place] Estimate of Intelligence: Below average Judgement: Intact, as evidence by: Insight regarding need for hospitalization Memory: Recent intact, as evidence by: Ability to recall events of the day, Remote impaired as evidenced by: Inability to recall sig life events - Risk Risk: Withdrawal, Diminished functioning - Strength & Assets Inventory Strength & Assets Inventory: Family support, Cooperative - Limitations Limitations: Other DSM 5 DX - DSM 5 DSM 5 Diagnosis: Opioid withdrawal Opioid use d/o - severe Depressive d/o - unspecified Tobacco use d/o - moderate - Recommended/Plan of Treatment Treatment Recommendations and Plan of Treatment: opioids: Methadone detox As needed meds Refer to rehab after [facility] Consider MAT after rehab, ie Vivitrol or Sbx [place] for abstinence Depression and anxiety: Lexapro Trz prn for sleep Supportive tx Nicotine: Patch [place] for abstinence 32 min - Smoking Cessation Smoking Cessation Initiated: Yes
--- NOTE | 2016-09-10 23:00 | CP.PCM.CON ---
History of Present Illness - History of Present Illness History of Present Illness: 56 yo Male w/ PMH= HTN, heroin drug abuse, presented to the ER at on 09/09/16 with Left thigh/hip pain for 1 day. He states that he fell earlier that day landing on L hip resulting in 8/10 pain and difficulty with weight bearing. Patient is well known to me, he is s/p L hip displaced intertrochanteric hip fracture ORIF w/ cephalomedulary/ sliding hip IM nail on 07/21/16 at . Post- op course was without complication, he progressed well and was dc to [facility] acute rehab, dc home 10 days later. He followed up in the office only one time post-op and has missed numerous office appointments. He has been non- compliant with physical therapy and followup. Radhika still in place at surgical wounds. That injury was a result of a mechanical fall from standing as well. He has had multiple falls since then and has had multiple ER visits as well. Today, pain is much improved to 5/10 and he has been able to ambulate with crutches and WB LLE. X-rays L hip/pelvis taken in ER 09/09/16: no new fracture, no dislocation, s/p internal fixation intertrochanteric fracture with sliding hip IM nail, fracture anatomic reduction well maintained with hardware in good alignment and position. No evidence of HW failure or migration/instability. He states that "I want help, I want to go to rehab for drugs". He has a long h/ o heroin abuse, denies IV use, admits to inhaling it. He seems to be in distress and truly wants to quit. Denies LOC, Head trauma, other MSK trauma, CP, SOB, ALMANZAR, N&V, fevers, chills, numbness or tingling, calf pain. Past Patient History - Infectious Disease Hx of Infectious Diseases: None - Past Medical History & Family History Past Medical History?: Yes - Past Social History Smoking Status: Light Smoker < 10 Cigarettes Daily - CARDIAC Hx Cardiac Disorders: Yes Hx Hypertension: Yes - PULMONARY Hx Respiratory Disorders: No Hx Tuberculosis: No - NEUROLOGICAL Hx Neurological Disorder: No Hx Seizures: No - HEENT Hx HEENT Problems: No - RENAL Hx Chronic Kidney Disease: No - ENDOCRINE/METABOLIC Hx Endocrine Disorders: No - HEMATOLOGICAL/ONCOLOGICAL Hx Blood Disorders: No Hx Human Immunodeficiency Virus (HIV): No - INTEGUMENTARY Hx Dermatological Problems: No - MUSCULOSKELETAL/RHEUMATOLOGICAL Hx Musculoskeletal Disorders: Yes Hx Back Pain: Yes Hx Falls: Yes - GASTROINTESTINAL Hx Gastrointestinal Disorders: No - GENITOURINARY/GYNECOLOGICAL Hx Genitourinary Disorders: No Hx Sexually Transmitted Disorders: No - PSYCHIATRIC Hx Substance Use: Yes Other/Comment: pt denies use of substance abuse - SURGICAL HISTORY Hx Surgeries: Yes Hx Joint Replacement: Yes (hip fx repair) Hx Orthopedic Surgery: Yes (spine surgery) - ANESTHESIA Hx Anesthesia: Yes Hx Anesthesia Reactions: No Hx Malignant Hyperthermia: No Has any member of the family had a problem w/ anesthesia?: No Meds Allergies/Adverse Reactions: Allergies Allergy/AdvReac Type Severity Reaction Status Date / Time No Known Allergies Allergy Verified 09/09/16 11:04 - Medications Medications: Current Medications Escitalopram Oxalate (Lexapro) 5 mg PO DAILY [facility] Last Admin: 09/10/16 15:58 Dose: 5 mg Famotidine (Pepcid) 20 mg PO BID [facility] Last Admin: 09/10/16 16:59 Dose: 20 mg Heparin Sodium (Porcine) (Heparin) 5,000 units SC Q8 [facility] Last Admin: 09/10/16 21:13 Dose: 5,000 units Hydroxyzine HCl (Atarax) 25 mg PO Q4H PRN PRN Reason: Anxiety Ceftriaxone Sodium 1 gm/ (Sodium Chloride) 100 mls @ 200 mls/hr IVPB Q24H [facility] Last Admin: 09/10/16 16:59 Dose: 200 mls/hr Ibuprofen (Motrin Tab) 400 mg PO Q6H PRN PRN Reason: Pain, moderate (4-7) Methadone HCl (Methadone) 0 mg PO Q24H [facility] PRN Reason: Taper Stop: 09/14/16 08:59 Trazodone HCl (Desyrel) 50 mg PO HS [facility] Last Admin: 09/10/16 21:13 Dose: 50 mg Physical Exam - Extremities Exam Additional comments: Right Lower Extremity: - ttp, - joint line tenderness, - swelling/erythema/ deformity/warmth, - crepitance, all joints FROM w/o pain, skin intact, - instability, + 5/5 motor strength Hip Flex/ Hip Ext/ Knee flex/ Knee Ext/ Ankle Dorsiflex/ Ankle Plantarflex/ EHL/ FHL, Sensory intact L2-S1/ DPN/SPN/TN/SN, 2+ DP, DTR 2+, - Babinski, no beats of clonus calves soft/nt bilateral Left Lower Extremity: lateral thigh and hip surgical wounds healing well, every other staple still in place, no dressing in place, - log roll Full ROM at all joints with hip pain. + mild ttp at thigh, - swelling/erythema/deformity/warmth, - crepitance, all joints FROM w/o pain, skin intact, - instability, + 5/5 motor strength Hip Flex/ Hip Ext/ Knee flex/ Knee Ext/ Ankle Dorsiflex/ Ankle Plantarflex/ EHL/ FHL, Sensory intact L2-S1/ DPN/SPN/TN/SN, 2+ DP, DTR 2+, - Babinski, no beats of clonus Results - Vital Signs Recent Vital Signs: Last Vital Signs Temp 97.9 F 09/10/16 16:00 Pulse 66 09/10/16 16:00 Resp 20 09/10/16 16:00 BP 129/80 09/10/16 16:00 Pulse Ox 100 09/10/16 16:00 - Labs Result Diagrams: 09/10/16 07:15 09/10/16 07:15 Labs: Laboratory Results - last 24 hr 09/10/16 09/10/16 09/10/16 07:13 07:15 07:15 WBC 6.9 RBC 3.95 L Hgb 11.5 L Hct 35.3 MCV 89.2 MCH 29.0 MCHC 32.6 L RDW 14.8 H Plt Count 264 MPV 7.7 Neut % (Auto) 67.4 Lymph % (Auto) 25.5 [place] % (Auto) 4.5 Eos % (Auto) 2.0 Baso % (Auto) 0.6 Neut # 4.7 Lymph # 1.8 [place] # 0.3 Eos # 0.1 Baso # 0.0 Sodium 144 Potassium 3.7 Chloride 103 Carbon Dioxide 29 Anion Gap 15 BUN 15 Creatinine 1.1 Est GFR ( Amer) > 60 Est GFR (Non-Af Amer) > 60 POC Glucose (mg/dL) 101 Random Glucose 100 Calcium 8.3 L Phosphorus 3.1 Magnesium 2.1 Total Bilirubin 0.3 AST 15 L ALT 22 Alkaline Phosphatase 111 Total Protein 6.1 L Albumin 3.1 L Globulin 3.0 Albumin/Globulin Ratio 1.0 Urine Opiates Screen Urine Methadone Screen Ur Barbiturates Screen Ur Phencyclidine Scrn Ur Amphetamines Screen U Benzodiazepines Scrn U Oth Cocaine Metabols U Cannabinoids Screen 09/10/16 09/10/16 09/10/16 12:02 13:34 16:15 WBC RBC Hgb Hct MCV MCH MCHC RDW Plt Count MPV Neut % (Auto) Lymph % (Auto) [place] % (Auto) Eos % (Auto) Baso % (Auto) Neut # Lymph # [place] # Eos # Baso # Sodium Potassium Chloride Carbon Dioxide Anion Gap BUN Creatinine Est GFR ( Amer) Est GFR (Non-Af Amer) POC Glucose (mg/dL) 93 98 Random Glucose Calcium Phosphorus Magnesium Total Bilirubin AST ALT Alkaline Phosphatase Total Protein Albumin Globulin Albumin/Globulin Ratio Urine Opiates Screen Positive Urine Methadone Screen Negative Ur Barbiturates Screen Negative Ur Phencyclidine Scrn Negative Ur Amphetamines Screen Negative U Benzodiazepines Scrn Negative U Oth Cocaine Metabols Negative U Cannabinoids Screen Negative 09/10/16 21:07 WBC RBC Hgb Hct MCV MCH MCHC RDW Plt Count MPV Neut % (Auto) Lymph % (Auto) [place] % (Auto) Eos % (Auto) Baso % (Auto) Neut # Lymph # [place] # Eos # Baso # Sodium Potassium Chloride Carbon Dioxide Anion Gap BUN Creatinine Est GFR ( Amer) Est GFR (Non-Af Amer) POC Glucose (mg/dL) 299 H Random Glucose Calcium Phosphorus Magnesium Total Bilirubin AST ALT Alkaline Phosphatase Total Protein Albumin Globulin Albumin/Globulin Ratio Urine Opiates Screen Urine Methadone Screen Ur Barbiturates Screen Ur Phencyclidine Scrn Ur Amphetamines Screen U Benzodiazepines Scrn U Oth Cocaine Metabols U Cannabinoids Screen Assessment & Plan (1) Hip fracture Assessment and Plan: 56 yo Male w/ PMH= HTN and Heroin abuse presented to the ER at on 09/09/16 with Left hip/thigh pain for 1 day. He has had multiple falls and multiple ER visits in the last 2 months. Dx= L hip/thigh #1 contusion/sprain #2 healing intertrochanteric hip fracture s/p L hip displaced IT hip fracture closed reduction and internal fixation with sliding hip IM nail at on 07/21/[address] Espana Unsteady gait PLAN: L hip/thigh: -fracture healing well and anatomic reduction maintained -fixation hardware intact and in good position -from ortho point of view, healing well and no emergent surgical intervention indicated -needs x-rays Left full femur and knee, not done -physical therapy= ambulation/strengthening/stretching/ROM, OOB as much as possible, Gait training -consider w/u of his recent progressive unsteady gait, neurology consult -has history of L-spine PSF and decompression as well -pt seems sincere about wanting help for his heroin problem, no ortho contraindication from entering inpt rehab program and no restriction from drug addiction medication treatment, consider placement in rehab and psych eval -DVT proph -radhika removed today, sterile dressings placed -if dc home, please ensure that he has appointment at my office, [facility], [facility] [phone] within the next 2 weeks -please contact me with any questions, concerns, or updates Thank you for allowing me to contribute to the care of your patient. Lorri Espana MD Orthopedic Surgery Status: Acute
--- NOTE | 2016-09-11 12:02 | PCM.PYCHPN ---
Psychiatric Progress Note - Psychiatric Progress Note Patient seen today, length of contact: 16 min Patient Chief Complaint: "I need more medication" Problems Identified/Issues Discussed: The pt is seen, chart reviewed, case discussed with staff. The pt is compliant with medications and reports no side-effects. Symptoms are improving but needs more time to stabilize. He got 10 mg methadone today and will get 5 tomorrow After care discussed, support and psychoeducation given. maria elena is increased as planned Trz is also increased bc he claimed he couldn;t sleep well Medication Change: Yes (increase maria elena and trz) Medical Record Reviewed: Yes Mental Status Examination - Cognitive Function Orientation: Person, Place, Situation, Time Memory: Impaired Attention: WNL Concentration: Poor Association: WNL Fund of Knowledge: Poor - Mood Mood: Depressed, Anxious - Affect Affect: Constricted - Speech Speech: Slurred - Formal Thought Process Formal Thought Process: No Impairment - Suicidal Ideation Suicidal Ideation: No - Homicidal Ideation Homicidal Ideation: No Goal/Treatment Plan - Goal/Treatment Plan Need for Continued Stay: Other (medical) Progress Toward Problem(s) and Goals/Treatment Plan: Continue medications Support and psychoeducation daily After care planning by NICOLLE - He may have to go to [facility] first, and then a drug rehab as he will not qualify to drug rehabs when he cannot function or walk properly.
--- NOTE | 2016-09-11 12:47 | RAD ---
Bilateral femurs 8 views History: Fall. Comparison: None available. Findings: Right femur: Moderate narrowing of the right hip joint space with subchondral sclerosis. Productive change at the right iliac crest. Productive change at the right greater trochanter. Mild degenerative changes at the right knee joint space. No significant knee joint effusion. Left hip: Intramedullary boo with dynamic screw seen traversing through the left proximal femur. Moderate left hip joint space degenerative changes with subchondral sclerosis and osteophytosis. Vascular calcifications. Mild degenerative changes of the left knee joint space. Impression: Degenerative and postsurgical changes as described above. If pain persists, consider MRI.
[2016-09-11 16:02] VITALS: RESP 20
--- NOTE | 2016-09-12 13:27 | HP ---
HISTORY OF PRESENT ILLNESS: The patient admitted to the hospital, 56-year-old frequent falls. The patient had a hip fracture. The patient discharged from the hospital. The patient has been using heroin, advised admission. PHYSICAL EXAMINATION GENERAL: The patient is awake, alert, oriented. VITAL SIGNS: Temperature 98, pulse 90. HEENT: Within normal limits. NECK: Supple. CHEST: Symmetrical. HEART: Regular. ABDOMEN: Soft. EXTREMITIES: No edema. IMPRESSION: The patient had fractured hip, drug abuse. The patient will get psych consult, methadone, social service consult. Surinder Levine MD
--- NOTE | 2016-09-12 18:26 | PN ---
DATE: 09/12/2016 Patient is in supportive care, evaluation for social service. Surinder Levine MD
--- NOTE | 2016-09-13 09:57 | PCM.PYCHPN ---
Psychiatric Progress Note - Psychiatric Progress Note Patient seen today, length of contact: 16 min Patient Chief Complaint: "I have pain in my leg" Problems Identified/Issues Discussed: The pt is seen, chart reviewed, case discussed with staff. He is cleared for transfer to [facility] (or discharge) Not suicidal/homicidal, has no halluc. or delusions. He is motivated for treatment but does not understand how it works, i.e. he wants suboxone now but he just completed methadone detox, plus he is going to [facility] and maybe a drug rehab afterwards. He can go on suboxone after these. He now seems to understand. Support given Sleep is not good and is anxious. Will use low dose seroquel. No SEs from meds so far. Medication Change: Yes (seroquel) Medical Record Reviewed: Yes Mental Status Examination - Cognitive Function Orientation: Person, Place, Situation, Time Memory: Impaired Attention: WNL Concentration: Poor Association: WNL - Mood Mood: Anxious - Affect Affect: Constricted - Speech Speech: Slurred - Formal Thought Process Formal Thought Process: No Impairment - Suicidal Ideation Suicidal Ideation: No - Homicidal Ideation Homicidal Ideation: No Goal/Treatment Plan - Goal/Treatment Plan Need for Continued Stay: Other (medical) Progress Toward Problem(s) and Goals/Treatment Plan: opioids: Methadone detox As needed meds Refer to rehab after [facility] Consider MAT after rehab, ie Vivitrol or Sbx [place] for abstinence Depression and anxiety: Lexapro 10 Seroquel 50+100 Trz prn for sleep Supportive tx Nicotine: Patch [place] for abstinence
[2016-09-13 11:27] LABS: BASO # 0.1 K/uL (0.0-0.2); EOS # 0.1 K/uL (0.0-0.7); EOS % 1.1 % (0.0-4.0); HEMATOCRIT 41.4 % (35.0-51.0); LYMPH # 1.6 K/uL (1.0-4.3); LYMPH % 21.5 % (20.0-40.0); MEAN CELL VOLUME 89.2 fL (80.0-94.0); MEAN CORPUSCULAR HEMOGLOBIN 28.8 pg (27.0-31.0); MEAN CORPUSCULAR HGB CONC 32.3 g/dL (33.0-37.0); MEAN PLATELET VOLUME 7.9 fL (7.2-11.7); MONO # 0.4 K/uL (0.0-0.8); MONO % 5.2 % (0.0-10.0); NRBC % 0.1 % (0.0-2.0); RED CELL DISTRIBUTION WIDTH 14.6 % (11.5-14.5); WHITE BLOOD COUNT 7.3 K/uL (4.8-10.8)
--- NOTE | 2016-09-13 11:35 | CP.PCM.PN ---
Subjective - Date & Time of Evaluation Date of Evaluation: 09/13/16 Time of Evaluation: 07:25 - Subjective Subjective: Medicine Note- Dr. Levine's service Patient was seen and examined at bedside. Patient reports no acute complaints at this time. He was requesting more methadone. He stated he wanted to leave and use suboxone from the street. He also expresses a desire to stop using heroin. No events overnight, per nursing. Patient is stable for dc to rehab today. Objective - Vital Signs/Intake and Output Vital Signs (last 24 hours): Temp Pulse Resp BP Pulse Ox 98.4 F 62 20 137/86 97 09/13/16 08:14 09/13/16 08:14 09/13/16 08:14 09/13/16 08:14 09/13/16 08:14 Intake and Output: 09/13/16 09/13/16 06:59 18:59 Intake Total 740 Balance 740 - Medications Medications: Current Medications Ciprofloxacin (Cipro) 500 mg PO BID [facility] Stop: 09/20/16 11:31 Escitalopram Oxalate (Lexapro) 10 mg PO DAILY [facility] Last Admin: 09/13/16 09:22 Dose: 10 mg Famotidine (Pepcid) 20 mg PO BID [facility] Last Admin: 09/13/16 09:22 Dose: 20 mg Heparin Sodium (Porcine) (Heparin) 5,000 units SC Q8 [facility] Last Admin: 09/13/16 06:17 Dose: 5,000 units Hydroxyzine HCl (Atarax) 25 mg PO Q4H PRN PRN Reason: Anxiety Last Admin: 09/12/16 19:14 Dose: 25 mg Ibuprofen (Motrin Tab) 400 mg PO Q6H PRN PRN Reason: Pain, moderate (4-7) Last Admin: 09/13/16 08:19 Dose: 400 mg Methadone HCl (Methadone) 5 mg PO Q24H [facility] PRN Reason: Taper Stop: 09/14/16 08:59 Last Admin: 09/13/16 08:16 Dose: 5 mg Nicotine (Nicoderm Cq) 1 patch TD DAILY [facility] Last Admin: 09/13/16 09:21 Dose: 1 patch Quetiapine Fumarate (Seroquel) 100 mg PO HS [facility] Quetiapine Fumarate (Seroquel) 50 mg PO DAILY [facility] Last Admin: 09/13/16 10:40 Dose: 50 mg Trazodone HCl (Desyrel) 100 mg PO HS [facility] Last Admin: 09/12/16 21:13 Dose: 100 mg - Labs Labs: 09/13/16 11:21 09/10/16 07:15 - Constitutional Appears: Non-toxic, No Acute Distress, Chronically Ill - Head Exam Head Exam: ATRAUMATIC, NORMAL INSPECTION - Eye Exam Eye Exam: Normal appearance Pupil Exam: NORMAL ACCOMODATION - ENT Exam ENT Exam: Mucous Membranes Moist - Neck Exam Neck Exam: Normal Inspection - Respiratory Exam Respiratory Exam: Clear to Ausculation Bilateral, NORMAL BREATHING PATTERN. absent: Respiratory Distress - Cardiovascular Exam Cardiovascular Exam: REGULAR RHYTHM, +S1, +S2 - GI/Abdominal Exam GI & Abdominal Exam: Soft, Normal Bowel Sounds. absent: Distended, Firm, Guarding, Tenderness - Extremities Exam Extremities Exam: absent: Calf Tenderness Additional comments: tenderness superior to right knee/ inferior thigh - Back Exam Back Exam: NORMAL INSPECTION. absent: CVA tenderness (L), CVA tenderness (R), paraspinal tenderness - Neurological Exam Neurological Exam: Alert, Awake, Oriented x3 - Psychiatric Exam Psychiatric exam: Normal Affect, Normal Mood - Skin Skin Exam: Dry, Intact, Normal Color, Warm Assessment and Plan - Assessment and Plan (Free Text) Assessment: Substance Use Disorder UDS- positive opiates Dr. Stiles consulted, help appreciated Methadone detox As needed meds Refer to rehab after [facility] Consider MAT after rehab, ie Vivitrol or Sbx [facility] for abstinence Fall CT Head w/o contrast negative for intracranial bleed Hip/Pevis Xray - no acute fracture Physical therapy eval- recommends [facility] OT UTI 1+ protein, 1+ blood 3+ LE 262 WBC 10 RBC Ceftriaxone - d/c Urine culture- Proteus Patient switched to Cipro PO x 7 days per sensitivity Monitor S/P Hip fracture repair mechanical left Intratrochanteric Fracture and underwent ORIF on the 07/21/[address] Stovall: please ensure that he has appointment at my office, [facility], [facility] [phone] within the next 2 weeks no ortho contraindication from entering inpt rehab program and no restriction from drug addiction fracture healing well and anatomic reduction maintained fixation hardware intact and in good position needs x-rays Left full femur and knee, not done physical therapy= ambulation/strengthening/stretching/ROM, OOB as much as possible, Gait training Tobacco Use Disorder Nicotine patch Prophylaxis Regular Diet Heparin 5000U SC Q8h Pepcid 20mg PO BID Patient is stable for discharge to Rehab per Dr. Levine and Dr. Stiles. He is to follow up with Dr. Levine or his PCP within one week of discharge for post hospital care. He is to take Cipro 500mg BID for urine infection. He is to follow up with Dr. Stovall within 2 weeks. He is to call [facility], [facility] [phone] to make an appointment. He will need a repeat urine culture in a week. He is to complete rehabilitation. for his hip then apply to senior living drug rehab programs. He was given this information during his hospital stay. Patient is to return to the ED if symptoms return. He is to avoid substance/alcohol use. All instructions explained to the patient and he agrees. All management per Dr. Levine
[2016-09-13 11:42] LABS: CHLORIDE 99 mmol/L (98-107); SODIUM 141 mmol/L (132-148)
[2016-09-13 11:43] LABS: POTASSIUM 4.7 mmol/L (3.6-5.2)
[2016-09-13 11:45] LABS: ALB/GLOB RATIO 1.1 (1.0-2.1); ALKALINE PHOSPHATASE 136 U/L (38-126); ALT/SGPT 29 U/L (21-72); AST/SGOT 23 U/L (17-59); BILIRUBIN,TOTAL 0.4 mg/dL (0.2-1.3); BLOOD UREA NITROGEN 14 mg/dL (9-20); CARBON DIOXIDE 30 mmol/L (22-30); GFR AFRICAN-AMERICAN > 60; GLUCOSE,RANDOM 108 mg/dL (75-110); TOTAL PROTEIN 7.1 g/dL (6.3-8.3)
[2016-09-13 11:46] LABS: CALCIUM 8.6 mg/dl (8.6-10.4); MAGNESIUM 2.1 mg/dL (1.6-2.3)
[2016-09-13 11:49] LABS: RBC URINE < 1 /hpf (0-3); URINE BACTERIA RARE (<OCC); URINE BILIRUBIN NEGATIVE (NEGATIVE); URINE BLOOD NEGATIVE (NEGATIVE); URINE COLOR Yellow (YELLOW); URINE GLUCOSE (UA) NORMAL (Normal); URINE KETONE NEGATIVE (NEGATIVE); URINE LEUKOCYTE ESTERASE NEG Leu/uL (Negative); URINE PROTEIN NEGATIVE (NEGATIVE); URINE UROBILINOGEN NORMAL mg/dL (0.2-1.0); WBC URINE 5 /hpf (0-5)
[2016-09-13 16:23] VITALS: BP 122/64; O2SAT 96
[2016-09-13 16:24] VITALS: PULSE 98; TEMP 98
--- NOTE | 2016-09-16 13:55 | DS ---
HISTORY OF PRESENT ILLNESS: The patient admitted to the hospital with left hip pain and difficulty walking. The patient had fractured hip. The patient was deconditioned and unable to walk. Having severe pain. The patient admits to drug abuse. The patient has been using heroin. The patient admitted to the hospital, placed in the bed, given short detox with methadone, physical therapy. Suggested subacute rehab. The patient transferred to subacute rehab. DIAGNOSES: Fractured hip, intractable pain, deconditioning, monitor in the rehab. Surinder Levine MD
== END 2016-09-13 18:00 | disposition home or self-care (01) | DRG 537 ==
LOC: C.ER 10:46 → C.9E 14:10 → C.3T 16:13
PROVIDERS: ADMIT Internal Medicine Pulmonary Disease; ATTEND Internal Medicine Pulmonary Disease
PROC: HZ2ZZZZ Detoxification Services for Substance Abuse Treatment (ICD-10-PCS; principal; 2016-09-10)
PROC: HZ81ZZZ Medication Management for Substance Abuse Treatment, Methadone Maintenance (ICD-10-PCS; 2016-09-10)
DX: S73.102A Unspecified sprain of left hip, initial encounter (principal); N39.0 Urinary tract infection, site not specified; F11.23 Opioid dependence with withdrawal; W01.0XXA Fall on same level from slipping, tripping and stumbling without subsequent striking against object, initial encounter; S70.02XA Contusion of left hip, initial encounter; S72.142D Displaced intertrochanteric fracture of left femur, subsequent encounter for closed fracture with routine healing; R26.81 Unsteadiness on feet; F17.210 Nicotine dependence, cigarettes, uncomplicated; F32.9 Major depressive disorder, single episode, unspecified; Z91.81 History of falling

== ENCOUNTER 2016-12-16 21:58 | Emergency (ER) | payer MEDICARE ==
[2016-12-16 21:58] VITALS: BMI 18.6
--- NOTE | 2016-12-16 22:10 | C.PDOC ---
Chief Complaint (Nursing): Hip Pain Past Medical History Vital Signs: Last Vital Signs Temp 97.5 F L 12/16/16 22:05 Pulse 89 12/16/16 22:05 Resp 18 12/16/16 22:05 BP 125/82 12/16/16 22:05 Pulse Ox 97 12/16/16 22:05 - Medical History PMH: HTN Denies: Diabetes, Hepatitis, HIV, Chronic Kidney Disease, Seizures, Sexually Transmitted Disease Surgical History: Back Surgery - [facility] Procedures DETOXIFICATION SERVICES FOR SUBSTANCE ABUSE TREATMENT (09/09/16) EXCISION OF TOE NAIL, EXTERNAL APPROACH (07/23/16) EXERCISE TRMT MUSCULOSK LOW BACK/LE W ASSIST EQUIP (07/23/16) GAIT TRAINING/AMBULAT TREATMENT USING ASSIST EQUIPMENT (07/23/16) HOME MANAGEMENT TREATMENT USING ASSIST EQUIPMENT (07/23/16) MEDS MGMT FOR SUBSTANCE ABUSE TREATMENT, METHADONE MAINT (09/09/16) REPOSITION LEFT UPPER FEMUR WITH INTRAMED FIX, OPEN APPROACH (07/19/16) Family History: States: Unknown Family Hx - Social History Hx Tobacco Use: No Hx Alcohol Use: No Hx Substance Use: Yes - Immunization History Hx Tetanus Toxoid Vaccination: No Hx Influenza Vaccination: Yes Hx Pneumococcal Vaccination: No ED Course And Treatment O2 Sat by Pulse Oximetry: 97 Disposition - Disposition Referrals: Surinder Levine MD [Primary Care Provider] -
[2016-12-16] MEDS ORDERED: Naloxone 0.4 mg/ml Inj (Adult) IM ONE (22:11)
--- NOTE | 2016-12-16 22:14 | C.PDOC ---
History Of Present Illness Patient is a 56 y/o male who presents to the ED by ambulance s/p being found outside homeless [facility]. Patient was reportedly outside to snort a bag of heroin and subsequently found on the ground resting. No other physical complaints at this time. Time Seen by Provider: 12/16/16 22:11 Chief Complaint (Nursing): Hip Pain History Per: Patient History/Exam Limitations: no limitations Onset/Duration Of Symptoms: Hrs Current Symptoms Are (Timing): Still Present Modifying Factor(s): Other (heroin) Recent travel outside of the [place]: No Past Medical History Reviewed: Historical Data, Nursing Documentation, Vital Signs Vital Signs: Last Vital Signs Temp 98 F 12/16/16 22:46 Pulse 80 12/16/16 22:46 Resp 16 12/16/16 22:46 BP 135/69 12/16/16 22:46 Pulse Ox 99 12/16/16 22:46 - Medical History PMH: HTN Denies: Diabetes, Hepatitis, HIV, Chronic Kidney Disease, Seizures, Sexually Transmitted Disease Surgical History: Back Surgery - [facility] Procedures DETOXIFICATION SERVICES FOR SUBSTANCE ABUSE TREATMENT (09/09/16) EXCISION OF TOE NAIL, EXTERNAL APPROACH (07/23/16) EXERCISE TRMT MUSCULOSK LOW BACK/LE W ASSIST EQUIP (07/23/16) GAIT TRAINING/AMBULAT TREATMENT USING ASSIST EQUIPMENT (07/23/16) HOME MANAGEMENT TREATMENT USING ASSIST EQUIPMENT (07/23/16) [facility] FOR SUBSTANCE ABUSE TREATMENT, METHADONE MAINT (09/09/16) REPOSITION LEFT UPPER FEMUR WITH INTRAMED FIX, OPEN APPROACH (07/19/16) Family History: States: Unknown Family Hx - Social History Hx Tobacco Use: No Hx Alcohol Use: No Hx Substance Use: Yes - Immunization History Hx Tetanus Toxoid Vaccination: No Hx Influenza Vaccination: Yes Hx Pneumococcal Vaccination: No Review Of Systems Neurological: Positive for: Other (heroin use) Physical Exam - Physical Exam Appears: Non-toxic, Other (conversational, alert and awake) Skin: Normal Color, Warm, Dry Head: Atraumatic, Normacephalic Eye(s): bilateral: Abnormal Pupil (pinpoint pupils ), Other Oral Mucosa: Moist Chest: Symmetrical Cardiovascular: Rhythm Regular, No Murmur Respiratory: Normal Breath Sounds, No Rales, No Rhonchi, No Wheezing Neurological/Psych: Normal Speech Gait: Unsteady (severe limp due to hip fracture and surgery many months ago) ED Course And Treatment O2 Sat by Pulse Oximetry: 97 Medical Decision Making Medical Decision Making: admits to intranasal heroine abuse no detox beds available- d/w Vianney from Crisis Pt more awake/aware after Narcan No new injuries related to recent hip fx/surgery Disposition Doctor Will See Patient In The: Office Counseled Patient/Family Regarding: Studies Performed, Diagnosis - Disposition Referrals: Alcoholics Anonymous [Outside] [facility] [Outside] [employer] [facility] [employer] [Outside] Surinder Levine MD [Primary Care Provider] - Disposition: HOME/ ROUTINE Disposition Time: 22:14 Condition: GOOD Additional Instructions: seek nightly sober fci placement stop heroine abuse- seek availability for detox programs- there is not availability for detox @ [facility]. Instructions: Narcotic Abuse (ED) Forms: [employer] [facility] (Kazakh) - Clinical Impression Clinical Impression: Heroin abuse - Scribe Statement The provider has reviewed the documentation as recorded by the Scribe Breana Weiss All medical record entries made by the Scribe were at my direction and personally dictated by me. I have reviewed the chart and agree that the record accurately reflects my personal performance of the history, physical exam, medical decision making, and the department course for this patient. I have also personally directed, reviewed, and agree with the discharge instructions and disposition.
[2016-12-16] MEDS ORDERED: Naloxone 0.4 mg/ml Inj (Adult) ONE (22:19)
[2016-12-16 22:47] VITALS: BP 135/69; PULSE 80; RESP 16; TEMP 98
[2016-12-17 01:48] VITALS: O2SAT 97
== END 2016-12-16 22:47 | disposition home or self-care (01) ==
LOC: C.ER 21:58 → SUPCPDRO 21:58 → C.ER 22:47
DX: F11.10 Opioid abuse, uncomplicated (principal)
CPT/HCPCS: 82948; 96372; 99284; J2310

== ENCOUNTER 2017-06-24 21:38 | Emergency (ER) | payer MEDICARE ==
[2017-06-24 21:38] VITALS: BMI 18.6
[2017-06-24 21:58] VITALS: TEMP 98.1
--- NOTE | 2017-06-24 23:07 | C.PDOC ---
History Of Present Illness 57 year old male presents to the ER requesting detox from heroin, last use was this morning. Denies any medical complaints at this time. Time Seen by Provider: 06/24/17 22:10 Chief Complaint (Nursing): Substance Abuse History Per: Patient History/Exam Limitations: no limitations Onset/Duration Of Symptoms: Hrs Current Symptoms Are (Timing): Still Present Suicide/Self Injury Attempted (Context): None Associated Symptoms: denies: Depression, Suicidal Thoughts Involuntary Hold By: None Recent travel outside of the [place]: No Past Medical History Reviewed: Historical Data, Nursing Documentation, Vital Signs Vital Signs: Last Vital Signs Temp 98.1 F 06/24/17 21:55 Pulse 80 06/25/17 01:02 Resp 14 06/25/17 01:02 BP 136/78 06/25/17 01:02 Pulse Ox 95 06/25/17 03:18 - Medical History PMH: HTN Surgical History: Back Surgery - [facility] Procedures DETOXIFICATION SERVICES FOR SUBSTANCE ABUSE TREATMENT (09/09/16) EXCISION OF TOE NAIL, EXTERNAL APPROACH (07/23/16) EXERCISE TRMT MUSCULOSK LOW BACK/LE W ASSIST EQUIP (07/23/16) GAIT TRAINING/AMBULAT TREATMENT USING ASSIST EQUIPMENT (07/23/16) HOME MANAGEMENT TREATMENT USING ASSIST EQUIPMENT (07/23/16) MEDS MGMT FOR SUBSTANCE ABUSE TREATMENT, METHADONE MAINT (09/09/16) REPOSITION LEFT UPPER FEMUR WITH INTRAMED FIX, OPEN APPROACH (07/19/16) Family History: States: Unknown Family Hx - Social History Hx Tobacco Use: No Hx Alcohol Use: No Hx Substance Use: Yes - Immunization History Hx Tetanus Toxoid Vaccination: No Hx Influenza Vaccination: Yes Hx Pneumococcal Vaccination: No Review Of Systems Constitutional: Negative for: Fever, Chills Cardiovascular: Negative for: Chest Pain, Palpitations Respiratory: Negative for: Cough, Shortness of Breath Gastrointestinal: Negative for: Nausea, Vomiting Physical Exam - Physical Exam Appears: Non-toxic Skin: Normal Color, Warm, Dry Head: Atraumatic, Normacephalic Eye(s): bilateral: Normal Inspection Oral Mucosa: Moist Chest: Symmetrical, No Tenderness Cardiovascular: Rhythm Regular Respiratory: Normal Breath Sounds, No Rales, No Rhonchi, No Wheezing Neurological/Psych: Oriented x3, Normal Speech ED Course And Treatment O2 Sat by Pulse Oximetry: 95 (Room air) Pulse Ox Interpretation: Normal Progress Note: Case discussed with crisis counselor Emperatriz who spoke with patient about the process of becoming prescreen and gave list of other available detox sites in the area. Disposition Counseled Patient/Family Regarding: Diagnosis, Need For Followup - Disposition Referrals: [facility] [Outside] Disposition: HOME/ ROUTINE Disposition Time: 23:04 Condition: STABLE Additional Instructions: Please call Crisis as instructed for available detox beds 9 papers were given to you with instructions) Follow up in clinic Return to ER if worse NOTE TO [facility]: Pt was seen in ER at [facility] [place] requesting detox - No beds available tonight/ instructions were given Instructions: Drug Abuse and Drug Addiction (DC) Forms: [employer] (Setswana) - Clinical Impression Clinical Impression: Heroin abuse - PA / ASSOCIATE MARKETING MANAGER / Resident Statement MD/DO has reviewed & agrees with the documentation as recorded. - Scribe Statement The provider has reviewed the documentation as recorded by the Scribe Jatin Abdi All medical record entries made by the Scribe were at my direction and personally dictated by me. I have reviewed the chart and agree that the record accurately reflects my personal performance of the history, physical exam, medical decision making, and the department course for this patient. I have also personally directed, reviewed, and agree with the discharge instructions and disposition.
[2017-06-25 01:05] VITALS: BP 136/78; PULSE 80; RESP 14
[2017-06-25 03:03] VITALS: O2SAT 95
== END 2017-06-25 01:06 | disposition home or self-care (01) ==
LOC: C.ER 21:38
DX: F11.10 Opioid abuse, uncomplicated (principal); I10 Essential (primary) hypertension

== ENCOUNTER 2017-07-06 20:49 | Inpatient (IN) | payer MEDICARE ==
[2017-07-06 20:49] VITALS: BMI 18.6
--- NOTE | 2017-07-06 21:15 | C.PDOC ---
History Of Present Illness 57 year old male with a Hx of chronic heroin abuse presents to the ER requesting heroin detox, last use was today. Denies ETOH abuse, other substance abuse, or physical complaints. Chief Complaint (Nursing): Substance Abuse History Per: Patient History/Exam Limitations: no limitations Onset/Duration Of Symptoms: Days Current Symptoms Are (Timing): Still Present Suicide/Self Injury Attempted (Context): None Modifying Factor(s): Other (Heroin) Involuntary Hold By: None Recent travel outside of the [place]: No Past Medical History Reviewed: Historical Data, Nursing Documentation, Vital Signs Vital Signs: Last Vital Signs Temp 98.4 F 07/06/17 21:06 Pulse 99 H 07/06/17 21:06 Resp 18 07/06/17 21:06 BP 115/77 07/06/17 21:06 Pulse Ox 98 07/06/17 21:24 - Medical History PMH: HTN Surgical History: Back Surgery - [facility] Procedures DETOXIFICATION SERVICES FOR SUBSTANCE ABUSE TREATMENT (09/09/16) EXCISION OF TOE NAIL, EXTERNAL APPROACH (07/23/16) EXERCISE TRMT MUSCULOSK LOW BACK/LE W ASSIST EQUIP (07/23/16) GAIT TRAINING/AMBULAT TREATMENT USING ASSIST EQUIPMENT (07/23/16) HOME MANAGEMENT TREATMENT USING ASSIST EQUIPMENT (07/23/16) MEDS MGMT FOR SUBSTANCE ABUSE TREATMENT, METHADONE MAINT (09/09/16) REPOSITION LEFT UPPER FEMUR WITH INTRAMED FIX, OPEN APPROACH (07/19/16) Family History: States: Unknown Family Hx - Social History Hx Tobacco Use: No Hx Alcohol Use: No (DENIED) Hx Substance Use: Yes - Immunization History Hx Tetanus Toxoid Vaccination: No Hx Influenza Vaccination: Yes Hx Pneumococcal Vaccination: No Review Of Systems Constitutional: Negative for: Fever, Chills Cardiovascular: Negative for: Chest Pain, Palpitations Respiratory: Negative for: Cough, Shortness of Breath Gastrointestinal: Negative for: Nausea, Vomiting Physical Exam - Physical Exam Appears: Non-toxic Skin: Normal Color, Warm, Dry Head: Atraumatic, Normacephalic Eye(s): bilateral: Normal Inspection Oral Mucosa: Moist Chest: Symmetrical, No Tenderness Cardiovascular: Rhythm Regular Respiratory: Normal Breath Sounds, No Rales, No Rhonchi, No Wheezing Gastrointestinal/Abdominal: Soft, No Tenderness Neurological/Psych: Oriented x3, Normal Speech ED Course And Treatment - Laboratory Results Result Diagrams: 07/06/17 21:16 07/06/17 21:16 O2 Sat by Pulse Oximetry: 98 (Room air) Pulse Ox Interpretation: Normal Progress Note: Blood work and urinalysis ordered. Disposition Discussed With : Elizabeth Stiles Doctor Will See Patient In The: Hospital Counseled Patient/Family Regarding: Diagnosis - Disposition Disposition: HOSPITALIZED Disposition Time: 22:37 Condition: STABLE Forms: [facility] (Polish) - POA Present On Arrival: None - Clinical Impression Clinical Impression: Drug abuse, Opiate abuse, continuous - Scribe Statement The provider has reviewed the documentation as recorded by the Scribe Jatin Abdi All medical record entries made by the Scribe were at my direction and personally dictated by me. I have reviewed the chart and agree that the record accurately reflects my personal performance of the history, physical exam, medical decision making, and the department course for this patient. I have also personally directed, reviewed, and agree with the discharge instructions and disposition.
[2017-07-06 21:21] LABS: BASO # 0.1 K/uL (0.0-0.2); BASO % 0.8 % (0.0-2.0); EOS # 0.3 K/uL (0.0-0.7); EOS % 3.8 % (0.0-4.0); HEMOGLOBIN 11.8 g/dL (12.0-18.0); LYMPH # 1.6 K/uL (1.0-4.3); LYMPH % 18.9 % (20.0-40.0); MEAN CELL VOLUME 87.9 fL (80.0-94.0); MEAN CORPUSCULAR HEMOGLOBIN 29.1 pg (27.0-31.0); MEAN CORPUSCULAR HGB CONC 33.1 g/dL (33.0-37.0); MEAN PLATELET VOLUME 7.4 fL (7.2-11.7); MONO # 0.6 K/uL (0.0-0.8); MONO % 7.4 % (0.0-10.0); NEUT # 5.7 K/uL (1.8-7.0); NEUT % 69.1 % (50.0-75.0); RBC 4.06 Mil/uL (4.40-5.90); RED CELL DISTRIBUTION WIDTH 14.3 % (11.5-14.5); WHITE BLOOD COUNT 8.2 K/uL (4.8-10.8)
[2017-07-06 21:32] LABS: ALB/GLOB RATIO 1.1 (1.0-2.1); ALT/SGPT 18 U/L (21-72); AST/SGOT 19 U/L (17-59); BLOOD UREA NITROGEN 17 mg/dL (9-20); CALCIUM 8.7 mg/dl (8.6-10.4); GFR AFRICAN-AMERICAN > 60; GFR NON-AFRICAN AMERICAN > 60
[2017-07-06 22:15] LABS: SQUAMOUS EPITHIAL 3 /hpf (0-5); URINE BILIRUBIN NEGATIVE (NEGATIVE); URINE BLOOD NEGATIVE (NEGATIVE); URINE CLARITY Clear (Clear); URINE COLOR Straw (YELLOW); URINE GLUCOSE (UA) NORMAL (Normal); URINE LEUKOCYTE ESTERASE NEG Leu/uL (Negative); URINE PROTEIN NEGATIVE (NEGATIVE); URINE UROBILINOGEN NORMAL mg/dL (0.2-1.0)
[2017-07-06 22:28] LABS: BARBITURATES, UR NEGATIVE (NEGATIVE); BENZODIAZEPINES, UR NEGATIVE (NEGATIVE); OPIATES, UR POSITIVE (NEGATIVE); PHENCYCLIDINE, UR NEGATIVE (NEGATIVE)
[2017-07-06] MEDS ORDERED: Aluminum Hydroxide/Magnesium Hydroxide Susp (30 mL) PO PRN (22:46)
--- NOTE | 2017-07-06 23:25 | PCM.BM ---
<Sneha White - Last Filed: 07/06/17 23:24> Treatment Plan Problems - Problems identified on initial assessmt Ineffective Coping Skills Date Initiated: 07/06/17 Time Initiated: 23:25 Assessment reference: NA Status: Active Treatment assets and liabiliti Patient Assests: ADL independent Patient Liabilities: financial problems, substance abuse, medical problems, other - Milieu Protocol Maintain good personal hygiene: daily Encourage regular showers, daily Remind patient to perform daily oral care, other Assist patient to perform ADL's (PRN) Maintain personal safety: every shift Educate patient to report safety concerns to staff, every shift Monitor environment for contraband/sharps Medication safety: Monitor for expected outcome, potential side effects: every shift, Assess barriers to learning: every shift, Assess readiness for medication education: every shift <Elizabeth Stiles - Last Filed: 07/07/17 11:41> - Diagnosis (1) Opioid use disorder, severe, dependence Status: Acute Interventions: 07/07/17 11:42 * Assess 7x/week regarding severity of withdrawal * Educate regarding risks, benefits, side effects and alternatives of medications * Use Motivational Interviewing for abstinence * Use CBT for relapse prevention * Medication management for withdrawal symptoms * Encourage medication assisted treatment * <Alem June - Last Filed: 07/11/17 16:33> Family Contact Family involvement: Patient does not wish Family/SO involvement Family contact: Patient declines to allow family contact at present - Goals for Treatment Patient goals for treatment: "I want to be referred to a rehab program." Discharge/Continuing Care - Education Needs Education Needs: Patient Medication, Patient Diagnosis/Disease Process, Patient Coping Skills, Patient Placement options, Patient Community resources - Discharge Discharge Criteria: Free of Suicidal thoughts, Normal sleep pattern, Ability to care for self, No longer exhibiting s/s of withdrawal, Reduction of target symptoms Discharge to:: [facility] Re[facility], Other - Treatment Team Participation Discussed with Family/SO: No Was Patient/Family/SO present at Treatment Team Meeting: Yes
--- NOTE | 2017-07-07 14:22 | PCM.PSYCH ---
Initial Psychiatric Evaluation - Initial Psychiatric Evaluation Type of Admission: Voluntary Legal Status: Capacity Chief Complaint (in patient's own words): "I need help with heroin detox" History of Present Illness and Precipitating Events: Patient is a 57 year old male who presents to ED requesting detox from heroin. Patient was using 4-5 bags of heroin intranasally per day. Patient also reports smoking 1/2 PPD of cigarettes for 40 years. Denies using other drugs and denies alcohol use. Patient was last here for detox in 2016. After discharge, patient did not go to any rehab program and relapsed. Patient uses a walker at baseline. Patient is and has 3 children but is homeless and has been living at the residential in [place] for the past 7 months. Patient gets money from disability. Patient is interested in a rehab program. Patient has tried suboxone by purchasing from people at the residential. Patient is having withdrawal symptoms including nausea, joint pain, and excessive fatigue. Patient also complains of being depressed for several months. He reports decreased sleep, decreased concentration, decreased energy, and decreased appetite. Patient overall is upset but denies suicidal ideations. Detox Hx: once in 2016 at [facility] Hx: denies PMHx: herniated disc (lumbar), HTN PSHx: left hip surgery and back surgery Allergies: no known allergies Medications: denies Family Hx: denies Psych Hx: He has been depressed but no admissions or suicide attempts Current Medications: Active Medications Generic Name Dose Route Start Last Admin Trade Name Freq PRN Reason Stop Dose Admin Al Hydrox/Mg Hydrox/Simethicone 30 ml 07/06/17 22:46 Maalox 30 Ml PO TID PRN Indigestion / Heartburn Clonidine HCl 0.1 mg 07/06/17 22:46 Catapres PO Q8 PRN COWS Score More or Equal to 5 Hydroxyzine HCl 25 mg 07/06/17 22:46 Atarax PO Q6H PRN Anxiety Ibuprofen 600 mg 07/06/17 22:46 07/07/17 10:18 Motrin Tab PO 600 mg Q6H PRN Administration Pain, moderate (4-7) Loperamide HCl 2 mg 07/06/17 22:46 Imodium PO Q8 PRN Diarrhea Methadone HCl 20 mg 07/07/17 10:00 07/07/17 10:19 Methadone PO 07/12/17 09:59 20 mg Q24H EMMETT Administration Taper Ondansetron HCl 4 mg 07/06/17 22:46 Zofran Tab PO Q8 PRN Nausea/Vomiting Trazodone HCl 100 mg 07/06/17 22:46 Desyrel PO HS PRN Insomnia Past Psychiatric History - Past Psychiatric History Pertinent Medical Hx (Current Medical&Sleep Prob, Allergies): Allergies Allergy/AdvReac Type Severity Reaction Status Date / Time No Known Allergies Allergy Verified 12/16/16 22:04 No Known Home Med 12/16/16 Review of Systems - Review of Systems All systems: reviewed and no additional remarkable complaints except - Neurological Neurological: UNREMARKABLE - Psychiatric Psychiatric: Abnormal Sleep Pattern, Confusion, Depression, Difficulty Concentrating, Hopelessness. absent: Anxiety, Auditory Hallucinations, Hallucinations, Homicidal Ideation, Irritability, Suicidal Ideation, Visual Hallucinations, Tactile Hallucinations Mental Status Examination - Personal Presentation Personal Presentation: Looks stated age - Affect Affect: Flat - Motor Activity Motor Activity: Calm - Reliability in Providing Information Reliability in Providing Information: Fair - Speech Speech: Organized - Mood Mood: Depressed - Formal Thought Process Formal Thought Process: No Impairment - Cognitive Functions Orientation: Person, Place, Time Sensorium: Alert Attention/Concentration: Attentive DSM 5 DX - DSM 5 DSM 5 Diagnosis: Opioid Withdrawal, Moderate Opioid Use Disorder, Moderate Tobacco Use Disorder, Severe Major Depressive Disorder - severe, w/o psychosis - Recommended/Plan of Treatment Treatment Recommendations and Plan of Treatment: Due to depressive symptoms, patient will be transferred to the psychiatry unit and will be started on Remeron. Methadone detox As needed medications Attend groups and activities Supportive therapy and psychoeducation [place] for abstinence CBT for relapse prevention Encourage MAT Refer to rehab or IOP Smoking Cessation Attend self-help groups as well 40 min Projected ELOS: 7 days - Smoking Cessation Smoking Cessation Initiated: Yes
--- NOTE | 2017-07-08 14:27 | PCM.PYCHPN ---
Psychiatric Progress Note - Psychiatric Progress Note Patient seen today, length of contact: 15 mins Patient Chief Complaint: "I am not well" Problems Identified/Issues Discussed: Patient seen and evaluated, chart reviewed, and discussed with nurse. Patient currently does not leave his room often due to withdrawal symptoms and depression. Patient is feeling sore in his joints and overall feels sick. Patient continues to use the walker. Patient has not yet participated in group activities. He still feels depressed. He states he slept well last night. Patient denies suicidal ideations. He is taking medications and denies any side effects. Symptoms are improving but he needs more time for stabilization. Supportive therapy and psychoeducation were given. After care discussed. Medication Change: Yes (detox changes daily) Medical Record Reviewed: Yes Mental Status Examination - Cognitive Function Orientation: Person, Place, Time Memory: Intact Attention: Poor Concentration: Poor - Mood Mood: Depressed - Affect Affect: Flat - Speech Speech: Soft - Formal Thought Process Formal Thought Process: No Impairment - Suicidal Ideation Suicidal Ideation: No - Homicidal Ideation Homicidal Ideation: No Goal/Treatment Plan - Goal/Treatment Plan Need for Continued Stay: Discharge may exacerbated symptoms, Severe functional impairment Progress Toward Problem(s) and Goals/Treatment Plan: Methadone detox Remeron for depression As needed medications Attend groups and activities Supportive therapy and psychoeducation [place] for abstinence CBT for relapse prevention Encourage MAT Refer to rehab or IOP Smoking Cessation Attend self-help groups as well - Smoking Cessation Smoking Cessation Initiated: Yes
--- NOTE | 2017-07-09 12:29 | PCM.PYCHPN ---
Psychiatric Progress Note - Psychiatric Progress Note Patient seen today, length of contact: 15 mins Patient Chief Complaint: I am feeling down Problems Identified/Issues Discussed: Patient seen and evaluated, chart reviewed and discussed with the nurse. Pt still reports depressed mood and reports feelings of hopelessness and helplessness. He reports poor sleep and he remained isolated and withdrawn. He is on methadone taper and reports withdrawal symptoms including cramps, back pain and sweating He is taking medications and denies any side effects Symptoms are improving but he needs more time for stabilization. Supportive therapy and psychoeducation were given. Medication Change: Yes (detox changes daily) Medical Record Reviewed: Yes Mental Status Examination - Cognitive Function Orientation: Person, Place, Time Memory: Intact Attention: WNL Concentration: Poor Association: WNL Fund of Knowledge: Poor - Mood Mood: Depressed - Affect Affect: Flat - Speech Speech: Soft - Formal Thought Process Formal Thought Process: No Impairment - Suicidal Ideation Suicidal Ideation: No - Homicidal Ideation Homicidal Ideation: No Goal/Treatment Plan - Goal/Treatment Plan Need for Continued Stay: Discharge may exacerbated symptoms, Severe functional impairment Progress Toward Problem(s) and Goals/Treatment Plan: Methadone detox Remeron for depression As needed medications Attend groups and activities Supportive therapy and psychoeducation [place] for abstinence CBT for relapse prevention Encourage MAT Refer to rehab or IOP Smoking Cessation Attend self-help groups as well
--- NOTE | 2017-07-10 13:47 | PCM.PYCHPN ---
Psychiatric Progress Note - Psychiatric Progress Note Patient seen today, length of contact: 15 mins Patient Chief Complaint: I am feeling depressed.' Problems Identified/Issues Discussed: Patient seen and evaluated, chart reviewed and discussed with the nurse. He remained isolated and withdrawn. Pt still reports depressed mood and reports poor sleep He still reports withdrawal symptoms including cramps, back pain and sweating He is taking medications and denies any side effects Symptoms are improving but he needs more time for stabilization. Supportive therapy and psychoeducation were given. Medication Change: Yes (detox changes daily) Medical Record Reviewed: Yes Mental Status Examination - Cognitive Function Orientation: Person, Place, Time Memory: Intact Attention: Poor Concentration: Poor Association: WNL Fund of Knowledge: Poor - Mood Mood: Depressed - Affect Affect: Flat - Speech Speech: Soft - Formal Thought Process Formal Thought Process: No Impairment - Suicidal Ideation Suicidal Ideation: No - Homicidal Ideation Homicidal Ideation: No Goal/Treatment Plan - Goal/Treatment Plan Need for Continued Stay: Discharge may exacerbated symptoms, Severe functional impairment Progress Toward Problem(s) and Goals/Treatment Plan: Methadone detox Remeron for depression As needed medications Attend groups and activities Supportive therapy and psychoeducation [place] for abstinence CBT for relapse prevention Encourage MAT Refer to rehab or IOP Smoking Cessation Attend self-help groups as well
--- NOTE | 2017-07-11 11:39 | PCM.PYCHPN ---
Psychiatric Progress Note - Psychiatric Progress Note Patient seen today, length of contact: 15 mins Patient Chief Complaint: "I still don't feel well" Problems Identified/Issues Discussed: The pt is seen, chart reviewed, case discussed with staff. The pt is compliant with medications and reports no side-effects. Symptoms are improving but needs more time to stabilize. Still mostly bedridden, isolated, feels depressed Wdw sxs are better but not disappeared fully. After care discussed, support and psychoeducation given. Medication Change: Yes (detox changes daily) Medical Record Reviewed: Yes Mental Status Examination - Cognitive Function Orientation: Person, Place, Time Memory: Intact Attention: Poor Concentration: Poor Association: WNL Fund of Knowledge: Poor - Mood Mood: Depressed - Affect Affect: Constricted - Speech Speech: Soft - Formal Thought Process Formal Thought Process: No Impairment - Suicidal Ideation Suicidal Ideation: No - Homicidal Ideation Homicidal Ideation: No Goal/Treatment Plan - Goal/Treatment Plan Need for Continued Stay: Discharge may exacerbated symptoms, Severe functional impairment Progress Toward Problem(s) and Goals/Treatment Plan: Methadone detox Remeron for depression As needed medications Attend groups and activities Supportive therapy and psychoeducation [place] for abstinence CBT for relapse prevention Encourage MAT Refer to rehab or IOP Smoking Cessation Attend self-help groups as well
--- NOTE | 2017-07-12 14:31 | PCM.PYCHPN ---
Psychiatric Progress Note - Psychiatric Progress Note Patient seen today, length of contact: 16 min Patient Chief Complaint: "I am not well" Problems Identified/Issues Discussed: The pt is seen, chart reviewed, case discussed with staff. Support and psychoeducation given, CBT and [place] used briefly No new symptoms reported, improving slowly and needs more time No SEs from medications, risks discussed. After care discussed - wants rehab He is also insisting on getting more methadone b/c of "chills" but he already got extras and completed his detox Reassurance given, one dose of ativan given bc of anxiety Medication Change: Yes (detox ending) Medical Record Reviewed: Yes Mental Status Examination - Cognitive Function Orientation: Person, Place, Time Memory: Intact Attention: Poor Concentration: Poor Association: WNL Fund of Knowledge: Poor - Mood Mood: Depressed - Affect Affect: Constricted - Speech Speech: Soft - Formal Thought Process Formal Thought Process: No Impairment - Suicidal Ideation Suicidal Ideation: No - Homicidal Ideation Homicidal Ideation: No Goal/Treatment Plan - Goal/Treatment Plan Need for Continued Stay: Discharge may exacerbated symptoms, Severe functional impairment Progress Toward Problem(s) and Goals/Treatment Plan: Methadone detox Remeron for depression As needed medications Attend groups and activities Supportive therapy and psychoeducation [place] for abstinence CBT for relapse prevention Encourage MAT Refer to rehab or IOP Smoking Cessation Attend self-help groups as well
[2017-07-13] MEDS: buPROPion 150 mg/24 Hours XL Tab PO SCH (09:43)
--- NOTE | 2017-07-13 16:55 | PCM.PYCHPN ---
Psychiatric Progress Note - Psychiatric Progress Note Patient seen today, length of contact: 15 min Patient Chief Complaint: "I am withdrawing" Problems Identified/Issues Discussed: The pt is seen, chart reviewed, case discussed with staff. Support and psychoeducation given, CBT and [place] used briefly He has very mild, mostly subjective wdw sxs - last dose of methadone given Not suicidal but has a very high risk of relapse SW is working on after care Medication Change: Yes (detox ending) Medical Record Reviewed: Yes Mental Status Examination - Cognitive Function Orientation: Person, Place, Time Memory: Intact Attention: Poor Concentration: Poor Association: WNL Fund of Knowledge: Poor - Mood Mood: Depressed - Affect Affect: Constricted - Speech Speech: Soft - Formal Thought Process Formal Thought Process: No Impairment - Suicidal Ideation Suicidal Ideation: No - Homicidal Ideation Homicidal Ideation: No Goal/Treatment Plan - Goal/Treatment Plan Need for Continued Stay: Discharge may exacerbated symptoms, Severe functional impairment Progress Toward Problem(s) and Goals/Treatment Plan: Methadone detox Remeron for depression As needed medications Attend groups and activities Supportive therapy and psychoeducation [place] for abstinence CBT for relapse prevention Encourage MAT Refer to rehab or IOP Smoking Cessation Attend self-help groups as well
[2017-07-14] MEDS: buPROPion 150 mg/24 Hours XL Tab PO SCH (10:04)
--- NOTE | 2017-07-14 12:34 | PCM.PYCHPN ---
Psychiatric Progress Note - Psychiatric Progress Note Patient seen today, length of contact: 15 min Patient Chief Complaint: "I am sad" Problems Identified/Issues Discussed: The pt is seen, chart reviewed, case discussed with staff. Support and psychoeducation given, CBT and [place] used briefly He reported that he had just learned his fa had in [place]. Support given No SEs from medications, risks discussed. After care discussed - waiting for rehab [facility] [facility] [place] Medication Change: Yes (detox ended) Medical Record Reviewed: Yes Mental Status Examination - Cognitive Function Orientation: Person, Place, Time Memory: Intact Attention: Poor Concentration: Poor Association: WNL Fund of Knowledge: Poor - Mood Mood: Depressed - Affect Affect: Constricted - Speech Speech: Soft - Formal Thought Process Formal Thought Process: No Impairment - Suicidal Ideation Suicidal Ideation: No - Homicidal Ideation Homicidal Ideation: No Goal/Treatment Plan - Goal/Treatment Plan Need for Continued Stay: Discharge may exacerbated symptoms, Severe functional impairment Progress Toward Problem(s) and Goals/Treatment Plan: Methadone ended Wellbutrin added Remeron for depression As needed medications Attend groups and activities Supportive therapy and psychoeducation [place] for abstinence CBT for relapse prevention Encourage MAT Refer to rehab or IOP Smoking Cessation Attend self-help groups as well Estimated Date of D/C: 07/18/17
--- NOTE | 2017-07-14 16:28 | RAD ---
HISTORY: Pending discharge to rehab COMPARISON: 07/19/2016 TECHNIQUE: Chest PA and lateral FINDINGS: LUNGS: An interval triangular infiltrate and/or atelectasis in the medial left lung base noted. PLEURA: No significant pleural effusion identified. No pneumothorax apparent. CARDIOVASCULAR: Normal. OSSEOUS STRUCTURES: No significant abnormalities. VISUALIZED UPPER ABDOMEN: Normal. OTHER FINDINGS: None. IMPRESSION: Interval medial left lung base triangular atelectasis and or infiltrate. Findings were called up to the floor where patient is being taking care of and results were given to Said on 07/14/2017 at 4:20 p.m.
--- NOTE | 2017-07-14 17:56 | CP.PCM.CON ---
<Pari Llanes - Last Filed: 07/14/17 20:31> History of Present Illness - History of Present Illness History of Present Illness: Patient is a 57 year old male with a history of opioid abuse, who originally presented to the hospital for detox. Medicine was consulted for infiltrate noted on chest xray. Patient reports having a "cold" for two months, consisting of runny nose and cough productive of light green sputum. Patient also states he has had left sided chest pain with repsiration, coughing, and when laying on his left side. The patient denies fevers, dyspnea, headaches, palpitations, abdominal pain, nausea vomiting, leg pain/swelling, diarrhea, constipation, dysuria, and hematuria. PMHx: opioid abuse SurgHx:"8 screws in my back for herniated discs in 1988", hip surgery 2017 FamHx: denies SocHx: smokes 1/2ppd x40+ years; 4-5 bags heroin intranasally for 2-3 years; denies other drug use; denies etoh use. homeless and living at skilled nursing in [place] for 7 months. Allergies: NKDA Medications: none. Review of Systems - Constitutional Constitutional: absent: Chills, Fever - EENT Nose/Mouth/Throat: Nasal Congestion, Nasal Discharge. absent: Sinus Pain, Sinus Pressure, Sore Throat - Cardiovascular Cardiovascular: absent: Dyspnea, Edema, Lightheadedness, Palpitations - Respiratory Respiratory: Cough, Wheezing, Pain on Inspiration (left chest), Change in Mucous Color (light green), Pain with Coughing (left chest). absent: Dyspnea - Gastrointestinal Gastrointestinal: absent: Abdominal Pain, Constipation, Diarrhea, Nausea, Vomiting - Genitourinary Genitourinary: absent: Dysuria - Neurological Neurological: absent: Dizziness, Headaches - Endocrine Endocrine: absent: Palpitations Past Patient History - Infectious Disease Hx of Infectious Diseases: None - Past Medical History & Family History Past Medical History?: Yes - Past Social History Smoking Status: Light Smoker < 10 Cigarettes Daily - CARDIAC Hx Hypertension: Yes - PULMONARY Hx Respiratory Disorders: No Hx Tuberculosis: No - NEUROLOGICAL Hx Neurological Disorder: No HX Cerebrovascular Accident: No Hx Seizures: No - HEENT Hx HEENT Problems: No - RENAL Hx Chronic Kidney Disease: No - ENDOCRINE/METABOLIC Hx Endocrine Disorders: No - HEMATOLOGICAL/ONCOLOGICAL Hx Blood Disorders: No Hx Cancer: No Hx Human Immunodeficiency Virus (HIV): No - INTEGUMENTARY Hx Dermatological Problems: No - MUSCULOSKELETAL/RHEUMATOLOGICAL Hx Musculoskeletal Disorders: Yes Hx Back Pain: Yes Hx Falls: Yes (2 months prior to today's admission) Hx Herniated Disk: Yes Hx Unsteady Gait: Yes - GASTROINTESTINAL Hx Gastrointestinal Disorders: No - GENITOURINARY/GYNECOLOGICAL Hx Genitourinary Disorders: No Hx Sexually Transmitted Disorders: No - PSYCHIATRIC Hx Substance Use: Yes - SURGICAL HISTORY Hx Surgeries: Yes Hx Joint Replacement: Yes (hip fx repair, left) Hx Orthopedic Surgery: Yes (spine surgery) - ANESTHESIA Hx Anesthesia: Yes Hx Anesthesia Reactions: No Hx Malignant Hyperthermia: No Has any member of the family had a problem w/ anesthesia?: No Meds Allergies/Adverse Reactions: Allergies Allergy/AdvReac Type Severity Reaction Status Date / Time No Known Allergies Allergy Verified 12/16/16 22:04 - Medications Medications: Current Medications Al Hydrox/Mg Hydrox/Simethicone (Maalox 30 Ml) 30 ml PO TID PRN PRN Reason: Indigestion / Heartburn Bupropion HCl (Wellbutrin Xl) 150 mg PO DAILY [facility] Last Admin: 07/14/17 10:04 Dose: 150 mg Clonidine HCl (Catapres) 0.1 mg PO Q8 PRN PRN Reason: COWS Score More or Equal to 5 Hydroxyzine HCl (Atarax) 25 mg PO Q6H PRN PRN Reason: Anxiety Ibuprofen (Motrin Tab) 600 mg PO Q6H PRN PRN Reason: Pain, moderate (4-7) Last Admin: 07/07/17 10:18 Dose: 600 mg Loperamide HCl (Imodium) 2 mg PO Q8 PRN PRN Reason: Diarrhea Mirtazapine (Remeron) 45 mg PO HS [facility] Last Admin: 07/13/17 21:43 Dose: 45 mg Ondansetron HCl (Zofran Tab) 4 mg PO Q8 PRN PRN Reason: Nausea/Vomiting Trazodone HCl (Desyrel) 100 mg PO HS PRN PRN Reason: Insomnia Last Admin: 07/13/17 21:43 Dose: 100 mg Physical Exam - Constitutional Appears: No Acute Distress - Head Exam Head Exam: ATRAUMATIC, NORMAL INSPECTION - Eye Exam Eye Exam: EOMI, Normal appearance - ENT Exam ENT Exam: Mucous Membranes Moist - Respiratory Exam Respiratory Exam: Decreased Breath Sounds, Rhonchi, Wheezes, NORMAL BREATHING PATTERN. absent: Clear to Auscultation Bilateral - Cardiovascular Exam Cardiovascular Exam: REGULAR RHYTHM, +S1, +S2 - GI/Abdominal Exam GI & Abdominal Exam: Normal Bowel Sounds, Soft, Tenderness (mild epigastric tenderness with deep palpation). absent: Distended - Extremities Exam Extremities exam: Positive for: normal inspection. Negative for: pedal edema, tenderness - Neurological Exam Neurological exam: Alert, Oriented x3 - Psychiatric Exam Psychiatric exam: Normal Affect, Normal Mood - Skin Skin Exam: Normal Color, Warm Results - Vital Signs Recent Vital Signs: Last Vital Signs Temp 98.4 F 07/14/17 06:27 Pulse 93 H 07/14/17 15:58 Resp 20 07/14/17 06:27 BP 108/73 07/14/17 15:58 Pulse Ox 99 07/07/17 13:29 - Labs Result Diagrams: 07/14/17 19:56 07/06/17 21:16 Assessment & Plan (1) Abnormal chest x-ray Assessment and Plan: +cough, + Hx of tobacco abuse (+20pack-yr) * Chest xray: interval medial left lung base triangular atelectasis and/or infiltrate * Chest CT: f/u results * ABG: f/u results * Pulmonology consulted, Dr. Brumfield; help appreciated Medications: * Duonebs Q4h * Azithromycin 500mg PO daily * Mucinex 600mg PO BID * Spiriva 18mcg inhaled daily Status: Acute (2) Opioid abuse Assessment and Plan: Management per psychiatry Status: Acute (3) Tobacco abuse Assessment and Plan: Nicoderm patch Status: Acute <Mai Kelly V - Last Filed: 07/16/17 12:07> Meds - Medications Medications: Current Medications Al Hydrox/Mg Hydrox/Simethicone (Maalox 30 Ml) 30 ml PO TID PRN PRN Reason: Indigestion / Heartburn Albuterol/Ipratropium (Duoneb 3 Mg/0.5 Mg (3 Ml) Ud) 3 ml INH RQ4 [facility] Last Admin: 07/16/17 12:03 Dose: Not Given Azithromycin (Zithromax) 500 mg PO DAILY [facility] PRN Reason: Protocol Benzocaine/Menthol (Cepacol Sore Throat) 1 yuni MT Q4 [facility] Last Admin: 07/16/17 12:02 Dose: Not Given Bupropion HCl (Wellbutrin Xl) 150 mg PO DAILY [facility] Last Admin: 07/16/17 09:01 Dose: 150 mg Clonidine HCl (Catapres) 0.1 mg PO Q8 PRN PRN Reason: COWS Score More or Equal to 5 Guaifenesin (Mucinex [place]) 600 mg PO BID [facility] Last Admin: 07/16/17 09:01 Dose: 600 mg Hydroxyzine HCl (Atarax) 25 mg PO Q6H PRN PRN Reason: Anxiety Last Admin: 07/14/17 23:45 Dose: 25 mg Ibuprofen (Motrin Tab) 600 mg PO Q6H PRN PRN Reason: Pain, moderate (4-7) Last Admin: 07/16/17 00:24 Dose: 600 mg Loperamide HCl (Imodium) 2 mg PO Q8 PRN PRN Reason: Diarrhea Lorazepam (Ativan) 1 mg PO Q8H PRN PRN Reason: severe anxiety, max 2x/24h Last Admin: 07/16/17 01:35 Dose: 1 mg Mirtazapine (Remeron) 45 mg PO HS [facility] Last Admin: 07/15/17 21:15 Dose: 45 mg Moxifloxacin HCl (Avelox) 400 mg PO DAILY [facility] PRN Reason: Protocol Stop: 07/19/17 11:00 Last Admin: 07/16/17 09:01 Dose: 400 mg Nicotine (Nicoderm Cq) 1 patch TD DAILY [facility] Last Admin: 07/16/17 09:13 Dose: Not Given Ondansetron HCl (Zofran Tab) 4 mg PO Q8 PRN PRN Reason: Nausea/Vomiting Tiotropium [place] (Spiriva) 18 mcg INH RQ24 [facility] Last Admin: 07/16/17 08:54 Dose: 18 mcg Trazodone HCl (Desyrel) 100 mg PO HS PRN PRN Reason: Insomnia Last Admin: 07/15/17 21:15 Dose: 100 mg Results - Vital Signs Recent Vital Signs: Last Vital Signs Temp 97.5 F L 07/16/17 06:08 Pulse 73 07/16/17 06:08 Resp 18 07/16/17 06:08 BP 108/73 07/16/17 06:08 Pulse Ox 98 07/16/17 06:08 - Labs Result Diagrams: 07/16/17 08:01 07/16/17 08:01 Labs: Laboratory Results - last 24 hr 07/16/17 07/16/17 08:01 08:01 WBC 9.1 RBC 4.27 L Hgb 12.3 Hct 37.0 MCV 86.7 MCH 28.8 MCHC 33.2 RDW 14.1 Plt Count 350 MPV 7.1 L Neut % (Auto) 73.6 Lymph % (Auto) 17.7 L Miller % (Auto) 6.1 Eos % (Auto) 1.9 Baso % (Auto) 0.7 Neut # (Auto) 6.7 Lymph # (Auto) 1.6 Miller # (Auto) 0.6 Eos # (Auto) 0.2 Baso # (Auto) 0.1 Sodium 143 Potassium 4.9 Chloride 101 Carbon Dioxide 31 H Anion Gap 15 BUN 19 Creatinine 1.1 Est GFR ( Amer) > 60 Est GFR (Non-Af Amer) > 60 Random Glucose 98 Calcium 9.1 Phosphorus 3.9 Magnesium 2.6 H Total Bilirubin 0.2 AST 27 ALT 23 Alkaline Phosphatase 103 Total Protein 8.3 Albumin 4.0 Globulin 4.3 H Albumin/Globulin Ratio 0.9 L Attending/Attestation - Attestation I have personally seen and examined this patient.: Yes I have fully participated in the care of the patient.: Yes I have reviewed all pertinent clinical information: Yes Notes (Text): This is late computer entry for 07/14/17. Patient seen, examined and case discussed with day-time resident. Medicine on consult for abnormal chest xray Patient is a known smoker and heroin use, reporting productive cough, chills, with abnormal chest xray. We have ordered for CT Chest for better visualization of the lungs, ABG, and pulmonary consult with Dr. Levine (not Dr. Brumfield) Assessment/Plan (1) Abnormal chest x-ray Suspected COPD Assessment and Plan: * Pulmonology consulted, Dr. Mcneill; help appreciated * +cough, + Hx of tobacco abuse (+20pack-yr) * Chest xray: interval medial left lung base triangular atelectasis and/or infiltrate * Chest CT w/o contrast: f/u results * ABG: f/u results Medications: * Duonebs Q4h scheduled * start Azithromycin 500mg PO daily * Mucinex 600mg PO BID * Spiriva 18mcg inhaled daily Status: Acute (2) Opioid abuse Assessment and Plan: * Management per psychiatry Status: Acute (3) Tobacco abuse Assessment and Plan: * Nicoderm patch once a day * Counselled about the adverse side effects of smoking Status: Acute
[2017-07-14 18:28] LABS: ABG ALLEN TEST POS; ARTERIAL BLOOD GAS HCO3 27.3 mmol/L (21-28); ARTERIAL BLOOD GAS HEMOGLOBIN 12.2 g/dL (11.7-17.4); ARTERIAL BLOOD GAS PCO2 38 mm/Hg (35-45); ARTERIAL BLOOD GAS PH 7.46 (7.35-7.45); ARTERIAL BLOOD GAS PO2 88 mm/Hg (80-100); ARTERIAL BLOOD GAS TCO2 28.2 mmol/L (22-28)
[2017-07-14] MEDS: guaiFENesin 600 mg ER Tab PO SCH (18:42)
[2017-07-14] MEDS: Albuterol-Ipratrop 3 mg / 0.5 (3 ml) UD INH SCH ×2 (19:55→23:20)
[2017-07-14 20:02] LABS: BASO # 0.1 K/uL (0.0-0.2); BASO % 0.6 % (0.0-2.0); EOS # 0.2 K/uL (0.0-0.7); EOS % 1.2 % (0.0-4.0); HEMOGLOBIN 12.4 g/dL (12.0-18.0); LYMPH # 1.9 K/uL (1.0-4.3); LYMPH % 14.6 % (20.0-40.0); MEAN CELL VOLUME 88.1 fL (80.0-94.0); MEAN CORPUSCULAR HEMOGLOBIN 28.7 pg (27.0-31.0); MEAN CORPUSCULAR HGB CONC 32.6 g/dL (33.0-37.0); MEAN PLATELET VOLUME 7.3 fL (7.2-11.7); MONO % 7.2 % (0.0-10.0); NEUT # 10.1 K/uL (1.8-7.0); NEUT % 76.4 % (50.0-75.0); NRBC % 0.1 % (0.0-2.0); RBC 4.31 Mil/uL (4.40-5.90); RED CELL DISTRIBUTION WIDTH 13.8 % (11.5-14.5); WHITE BLOOD COUNT 13.3 K/uL (4.8-10.8)
[2017-07-14 20:33] LABS: ALB/GLOB RATIO 0.9 (1.0-2.1); ALT/SGPT 23 U/L (21-72); AST/SGOT 22 U/L (17-59); BLOOD UREA NITROGEN 19 mg/dL (9-20); CALCIUM 8.9 mg/dl (8.6-10.4); GFR AFRICAN-AMERICAN > 60; GFR NON-AFRICAN AMERICAN > 60
--- NOTE | 2017-07-14 21:06 | CT ---
EXAM: CT Chest Without Intravenous Contrast CLINICAL HISTORY: 57 years old, male; Pain and signs and symptoms; Cough and other: Atelectasis vs infiltrate; Smoker's cough; Chest pain; On breathing; Additional info: Abnormal chest xray TECHNIQUE: Axial computed tomography images of the chest without intravenous contrast. All CT scans at this facility use one or more dose reduction techniques, viz.: automated exposure control; ma/kV adjustment per patient size (including targeted exams where dose is matched to indication; i.e. head); or iterative reconstruction technique. Coronal and sagittal reformatted images were created and reviewed. COMPARISON: DX - CHEST TWO VIEWS (PA/LAT) 2017-07-14 13:24 FINDINGS: Limitations: Lack of intravenous contrast. Lungs: Early centrilobular emphysematous changes. Minimal apical scarring. [id number] patchy and confluent air space disease left lower lobe. Minimal patchy airspace disease left lower, right middle lobes. Pleural space: No pneumothorax. No significant effusion. Heart: No cardiomegaly. No significant pericardial effusion. Bones/joints: No acute fracture. Soft tissues: Unremarkable. Vasculature: Minimal atherosclerotic disease. No aneurysm. Lymph nodes: No pathologically enlarged lymph nodes. IMPRESSION: 1. Probable multifocal pneumonia. Followup to resolution to exclude underlying pathology. 2. Incidental/non-acute findings are described above.
[2017-07-15] MEDS: Albuterol-Ipratrop 3 mg / 0.5 (3 ml) UD INH SCH ×5 (04:49→20:46)
[2017-07-15 06:33] VITALS: RESP 18
[2017-07-15] MEDS: Tiotropium 18 mcg Cap For Inhalation INH SCH (09:06)
[2017-07-15] MEDS: buPROPion 150 mg/24 Hours XL Tab PO SCH (09:11)
[2017-07-15] MEDS: guaiFENesin 600 mg ER Tab PO SCH ×2 (09:11→16:59)
--- NOTE | 2017-07-15 13:51 | PCM.PYCHPN ---
Psychiatric Progress Note - Psychiatric Progress Note Patient seen today, length of contact: 20 min Patient Chief Complaint: "I am not well" Problems Identified/Issues Discussed: The pt is seen, chart reviewed, case discussed with staff. He is upset with his ex- and son for not coming to pick remover his SKIP card to help pay for is father's . He even anted to leave AMA - he is still very depressed and moreover he now has pneumonia How to address been handled this problem discussed. Ativan added for his ongoing anxiety Support given No more opiate withdrawal [place] used Medication Change: Yes (detox ended) Medical Record Reviewed: Yes Mental Status Examination - Cognitive Function Orientation: Person, Place, Time Memory: Intact Attention: Poor Concentration: Poor Association: WNL Fund of Knowledge: Poor - Mood Mood: Depressed - Affect Affect: Constricted - Speech Speech: Soft - Formal Thought Process Formal Thought Process: No Impairment - Suicidal Ideation Suicidal Ideation: No - Homicidal Ideation Homicidal Ideation: No Goal/Treatment Plan - Goal/Treatment Plan Need for Continued Stay: Discharge may exacerbated symptoms, Severe functional impairment Progress Toward Problem(s) and Goals/Treatment Plan: Methadone ended Wellbutrin added Ativan prn added Remeron for depression As needed medications Attend groups and activities Supportive therapy and psychoeducation [place] for abstinence CBT for relapse prevention Encourage MAT Refer to rehab or IOP Smoking Cessation Attend self-help groups as well Estimated Date of D/C: 07/18/17
--- NOTE | 2017-07-15 14:55 | CP.PCM.PN ---
<Danna Espino - Last Filed: 07/15/17 14:53> Subjective - Date & Time of Evaluation Date of Evaluation: 07/15/17 Time of Evaluation: 07:00 - Subjective Subjective: Medicine Consult/Progress Note: Patient was seen and examined at bedside in the AM. Patient stated his shortness of breath improved however he is still coughing light green phlegm. He denies fever, nausea, vomiting, diarrhea or constipation. Patient states he did have chills and was not able to sleep overnight. Patient states he is upset because his father recently due to pneumonia and he has not been able to pay his respects to his father. Objective - Vital Signs/Intake and Output Vital Signs (last 24 hours): Temp Pulse Resp BP Pulse Ox 98 F 82 18 124/81 99 07/15/17 06:32 07/15/17 06:32 07/15/17 06:32 07/15/17 06:32 07/07/17 13:29 - Medications Medications: Current Medications Al Hydrox/Mg Hydrox/Simethicone (Maalox 30 Ml) 30 ml PO TID PRN PRN Reason: Indigestion / Heartburn Albuterol/Ipratropium (Duoneb 3 Mg/0.5 Mg (3 Ml) Ud) 3 ml INH RQ4 [facility] Last Admin: 07/15/17 14:05 Dose: 3 ml Azithromycin (Zithromax) 500 mg PO DAILY [facility] PRN Reason: Protocol Last Admin: 07/15/17 09:11 Dose: 500 mg Bupropion HCl (Wellbutrin Xl) 150 mg PO DAILY [facility] Last Admin: 07/15/17 09:11 Dose: 150 mg Clonidine HCl (Catapres) 0.1 mg PO Q8 PRN PRN Reason: COWS Score More or Equal to 5 Guaifenesin (Mucinex La) 600 mg PO BID [facility] Last Admin: 07/15/17 09:11 Dose: 600 mg Hydroxyzine HCl (Atarax) 25 mg PO Q6H PRN PRN Reason: Anxiety Last Admin: 07/14/17 23:45 Dose: 25 mg Ibuprofen (Motrin Tab) 600 mg PO Q6H PRN PRN Reason: Pain, moderate (4-7) Last Admin: 07/07/17 10:18 Dose: 600 mg Loperamide HCl (Imodium) 2 mg PO Q8 PRN PRN Reason: Diarrhea Lorazepam (Ativan) 1 mg PO Q8H PRN PRN Reason: severe anxiety, max 2x/24h Mirtazapine (Remeron) 45 mg PO HS [facility] Last Admin: 07/14/17 21:39 Dose: 45 mg Moxifloxacin HCl (Avelox) 400 mg PO DAILY [facility] PRN Reason: Protocol Last Admin: 07/15/17 11:22 Dose: 400 mg Nicotine (Nicoderm Cq) 1 patch TD DAILY [facility] Last Admin: 07/15/17 09:11 Dose: 1 patch Ondansetron HCl (Zofran Tab) 4 mg PO Q8 PRN PRN Reason: Nausea/Vomiting Tiotropium [place] (Spiriva) 18 mcg INH RQ24 [facility] Last Admin: 07/15/17 09:06 Dose: Not Given Tiotropium [place] (Spiriva Inhalation Handihaler Device) 1 inhaler INH ONCE ONE Stop: 07/15/17 18:01 Trazodone HCl (Desyrel) 100 mg PO HS PRN PRN Reason: Insomnia Last Admin: 07/14/17 21:39 Dose: 100 mg - Labs Labs: 07/14/17 19:56 07/14/17 19:56 - Constitutional Appears: In Acute Distress, Older Than Stated Age - Head Exam Head Exam: ATRAUMATIC, NORMAL INSPECTION - Eye Exam Eye Exam: EOMI, Normal appearance - ENT Exam ENT Exam: Mucous Membranes Moist - Respiratory Exam Respiratory Exam: Clear to Ausculation Bilateral, NORMAL BREATHING PATTERN. absent: Wheezes - Cardiovascular Exam Cardiovascular Exam: REGULAR RHYTHM, RRR, +S1, +S2 - GI/Abdominal Exam GI & Abdominal Exam: Soft, Normal Bowel Sounds. absent: Tenderness - Extremities Exam Extremities Exam: Normal Inspection - Neurological Exam Neurological Exam: Alert, Awake, Oriented x3 - Psychiatric Exam Psychiatric exam: Depressed Assessment and Plan - Assessment and Plan (Free Text) Assessment: Pneumonia +cough, + Hx of tobacco abuse (+20pack-yr) Images * Chest xray: interval medial left lung base triangular atelectasis and/or infiltrate * Chest CT: Probable multifocal pneumonia. Followup to resolution to exclude underlying pathology. - ABG: pH 7.46; O2 88; HCO3 27.3 - Pulmonology consulted, Dr. Levine; help appreciated - Spoke with Dr. Levine who stated to continue the patient on oral antibiotics - Avelox for 5 days Medications: * Duonebs Q4h * Avelox 400mg daily started 07/15/17 for 5 days (discontinue Tuesday07/19/17) * Mucinex 600mg PO BID * Spiriva 18mcg inhaled daily Opioid abuse Management per psychiatry Tobacco abuse Nicoderm patch Case discussed with Dr. Leticia Espino PGY-1 <Mai Kelly V - Last Filed: 07/16/17 12:17> Objective - Vital Signs/Intake and Output Vital Signs (last 24 hours): Temp Pulse Resp BP Pulse Ox 97.5 F L 73 18 108/73 98 07/16/17 06:08 07/16/17 06:08 07/16/17 06:08 07/16/17 06:08 07/16/17 06:08 - Medications Medications: Current Medications Al Hydrox/Mg Hydrox/Simethicone (Maalox 30 Ml) 30 ml PO TID PRN PRN Reason: Indigestion / Heartburn Albuterol/Ipratropium (Duoneb 3 Mg/0.5 Mg (3 Ml) Ud) 3 ml INH RQ4 [facility] Last Admin: 07/16/17 12:03 Dose: Not Given Azithromycin (Zithromax) 500 mg PO DAILY [facility] PRN Reason: Protocol Benzocaine/Menthol (Cepacol Sore Throat) 1 yuni MT Q4 [facility] Last Admin: 07/16/17 12:02 Dose: Not Given Bupropion HCl (Wellbutrin Xl) 150 mg PO DAILY [facility] Last Admin: 07/16/17 09:01 Dose: 150 mg Clonidine HCl (Catapres) 0.1 mg PO Q8 PRN PRN Reason: COWS Score More or Equal to 5 Guaifenesin (Mucinex La) 600 mg PO BID [facility] Last Admin: 07/16/17 09:01 Dose: 600 mg Hydroxyzine HCl (Atarax) 25 mg PO Q6H PRN PRN Reason: Anxiety Last Admin: 07/14/17 23:45 Dose: 25 mg Ibuprofen (Motrin Tab) 600 mg PO Q6H PRN PRN Reason: Pain, moderate (4-7) Last Admin: 07/16/17 00:24 Dose: 600 mg Loperamide HCl (Imodium) 2 mg PO Q8 PRN PRN Reason: Diarrhea Lorazepam (Ativan) 1 mg PO Q8H PRN PRN Reason: severe anxiety, max 2x/24h Last Admin: 07/16/17 01:35 Dose: 1 mg Mirtazapine (Remeron) 45 mg PO HS [facility] Last Admin: 07/15/17 21:15 Dose: 45 mg Moxifloxacin HCl (Avelox) 400 mg PO DAILY [facility] PRN Reason: Protocol Stop: 07/19/17 11:00 Last Admin: 07/16/17 09:01 Dose: 400 mg Nicotine (Nicoderm Cq) 1 patch TD DAILY [facility] Last Admin: 07/16/17 09:13 Dose: Not Given Ondansetron HCl (Zofran Tab) 4 mg PO Q8 PRN PRN Reason: Nausea/Vomiting Tiotropium [place] (Spiriva) 18 mcg INH RQ24 [facility] Last Admin: 07/16/17 08:54 Dose: 18 mcg Trazodone HCl (Desyrel) 100 mg PO HS PRN PRN Reason: Insomnia Last Admin: 07/15/17 21:15 Dose: 100 mg - Labs Labs: 07/16/17 08:01 07/16/17 08:01 Attending/Attestation - Attestation I have personally seen and examined this patient.: Yes I have fully participated in the care of the patient.: Yes I have reviewed all pertinent clinical information, including history, physical exam and plan: Yes Notes (Text): This is late computer entry for 07/15/17. Patient seen, examined and case discussed with day-time resident. Patient's main concern is the recent passing of his dad. Patient's dad on Tuesday from pneumonia, he was in his eighties. Patient very tearful and sad when he heard he had pneumonia based on the CT chest. We did encourage him to take his antibiotic, tobacco cessation, and nebulizer treatments. Patient has productive cough. Lung exam sounds better after nebulizer treatments. We have spoken with pulmonary consult who came and saw the patient. We have discussed ABG and CT chest. Recommends for PO Avelox for 5 days. Blood work reviewed noted: mild white count, afebrile. Assessment/Plan 1) Pneumonia Assessment/Plan * +cough, + Hx of tobacco abuse (+20pack-yr) * Images * Chest xray (07/14/17): interval medial left lung base triangular atelectasis and /or infiltrate * Chest CT w/o contrast (07/14/17) : Probable multifocal pneumonia. Followup to resolution to exclude underlying pathology. * ABG: pH 7.46; O2 88; HCO3 27.3 * Pulmonology consulted, Dr. Levine; help appreciated * Resident spoke with Dr. Levine who stated to continue the patient on oral antibiotics - Avelox for 5 days Medications: * Duonebs Q4h * Avelox 400mg daily started 07/15/17 for 5 days (discontinue Tuesday07/19/17) * Mucinex 600mg PO BID * Spiriva 18mcg inhaled daily 2) Opioid abuse Assessment/Plan * Management per psychiatry 3) Tobacco abuse Assessment/Plan * Nicoderm patch * Counselled on adverse side effects on tobacco 4) Bereavement Assessment/Plan * Recommend pastoral care given dad's recent passing * Resident has spoken with psychiatrist who is aware as well
[2017-07-15] MEDS: Benzocaine/Menthol (Cepacol) Lozenge MT SCH ×2 (16:06→20:32)
[2017-07-16] MEDS: Benzocaine/Menthol (Cepacol) Lozenge MT SCH ×4 (00:02→12:02)
[2017-07-16] MEDS: Albuterol-Ipratrop 3 mg / 0.5 (3 ml) UD INH SCH ×4 (00:02→12:03)
--- NOTE | 2017-07-16 01:18 | CP.PCM.PN ---
<Pari Llanes - Last Filed: 07/16/17 06:02> Subjective - Date & Time of Evaluation Date of Evaluation: 07/16/17 Time of Evaluation: 01:18 - Subjective Subjective: Medicine progress note for Dr. Kelly Patient was seen and examined at bedside in no acute distress. Patient reports still having left sided pain when coughing and when laying on his left side. He also complains of light green mucus and chills. Patient says the nebulizer treatments have improved his symptoms. Patient denies chest pain, dyspnea, abdominal pain, nausea, vomiting, fevers, headaches, dysuria, constipation and diarrhea. Objective - Vital Signs/Intake and Output Vital Signs (last 24 hours): Temp Pulse Resp BP Pulse Ox 98 F 109 H 18 116/71 99 07/15/17 06:32 07/15/17 15:54 07/15/17 06:32 07/15/17 15:54 07/07/17 13:29 - Medications Medications: Current Medications Al Hydrox/Mg Hydrox/Simethicone (Maalox 30 Ml) 30 ml PO TID PRN PRN Reason: Indigestion / Heartburn Albuterol/Ipratropium (Duoneb 3 Mg/0.5 Mg (3 Ml) Ud) 3 ml INH RQ4 [facility] Last Admin: 07/16/17 00:02 Dose: Not Given Azithromycin (Zithromax) 500 mg PO DAILY [facility] PRN Reason: Protocol Last Admin: 07/15/17 09:11 Dose: 500 mg Benzocaine/Menthol (Cepacol Sore Throat) 1 yuni MT Q4 [facility] Last Admin: 07/16/17 00:02 Dose: Not Given Bupropion HCl (Wellbutrin Xl) 150 mg PO DAILY [facility] Last Admin: 07/15/17 09:11 Dose: 150 mg Clonidine HCl (Catapres) 0.1 mg PO Q8 PRN PRN Reason: COWS Score More or Equal to 5 Guaifenesin (Mucinex La) 600 mg PO BID [facility] Last Admin: 07/15/17 16:59 Dose: 600 mg Hydroxyzine HCl (Atarax) 25 mg PO Q6H PRN PRN Reason: Anxiety Last Admin: 07/14/17 23:45 Dose: 25 mg Ibuprofen (Motrin Tab) 600 mg PO Q6H PRN PRN Reason: Pain, moderate (4-7) Last Admin: 07/16/17 00:24 Dose: 600 mg Loperamide HCl (Imodium) 2 mg PO Q8 PRN PRN Reason: Diarrhea Lorazepam (Ativan) 1 mg PO Q8H PRN PRN Reason: severe anxiety, max 2x/24h Last Admin: 07/15/17 16:09 Dose: 1 mg Mirtazapine (Remeron) 45 mg PO HS [facility] Last Admin: 07/15/17 21:15 Dose: 45 mg Moxifloxacin HCl (Avelox) 400 mg PO DAILY [facility] PRN Reason: Protocol Stop: 07/19/17 11:00 Last Admin: 07/15/17 11:22 Dose: 400 mg Nicotine (Nicoderm Cq) 1 patch TD DAILY [facility] Last Admin: 07/15/17 09:11 Dose: 1 patch Ondansetron HCl (Zofran Tab) 4 mg PO Q8 PRN PRN Reason: Nausea/Vomiting Tiotropium [place] (Spiriva) 18 mcg INH RQ24 [facility] Last Admin: 07/15/17 09:06 Dose: Not Given Trazodone HCl (Desyrel) 100 mg PO HS PRN PRN Reason: Insomnia Last Admin: 07/15/17 21:15 Dose: 100 mg - Labs Labs: 07/14/17 19:56 07/14/17 19:56 - Additional Findings Additional findings: - Constitutional Appears: No Acute Distress - Head Exam Head Exam: ATRAUMATIC, NORMAL INSPECTION - Eye Exam Eye Exam: EOMI, Normal appearance - ENT Exam ENT Exam: Mucous Membranes Moist - Respiratory Exam Respiratory Exam: Decreased Breath Sounds, Rhonchi, Wheezes, NORMAL BREATHING PATTERN. absent: Clear to Auscultation Bilateral - Cardiovascular Exam Cardiovascular Exam: REGULAR RHYTHM, +S1, +S2 - GI/Abdominal Exam GI & Abdominal Exam: Normal Bowel Sounds, Soft, Tenderness (mild epigastric tenderness with deep palpation). absent: Distended - Extremities Exam Extremities exam: Positive for: normal inspection. Negative for: pedal edema, tenderness - Neurological Exam Neurological exam: Alert, Oriented x3 - Psychiatric Exam Psychiatric exam: Normal Affect, Normal Mood - Skin Skin Exam: Normal Color, Warm Assessment and Plan (1) Abnormal chest x-ray Status: Acute (2) Opioid abuse Status: Acute (3) Tobacco abuse Status: Acute - Assessment and Plan (Free Text) Plan: (1) Abnormal chest x-ray Assessment and Plan: +cough, + Hx of tobacco abuse (+20pack-yr) * Chest xray: interval medial left lung base triangular atelectasis and/or infiltrate * Chest CT: Probable multifocal pneumonia. Followup to resolution to exclude underlying pathology. * ABG: pH 7.46; O2 88; HCO3 27.3 * Pulmonology consulted, Dr. Dolan; help appreciated * Spoke with Dr. Dolan who stated to continue the patient on oral antibiotics - Avelox for 5 days Medications: * Duonebs Q4h * Azithromycin 500mg PO daily * Mucinex 600mg PO BID * Spiriva 18mcg inhaled daily (2) Opioid abuse Assessment and Plan: Management per psychiatry (3) Tobacco abuse Assessment and Plan: Nicoderm patch <Mai Kelly V - Last Filed: 07/16/17 12:28> Objective - Vital Signs/Intake and Output Vital Signs (last 24 hours): Temp Pulse Resp BP Pulse Ox 97.5 F L 73 18 108/73 98 07/16/17 06:08 07/16/17 06:08 07/16/17 06:08 07/16/17 06:08 07/16/17 06:08 - Medications Medications: Current Medications Al Hydrox/Mg Hydrox/Simethicone (Maalox 30 Ml) 30 ml PO TID PRN PRN Reason: Indigestion / Heartburn Albuterol/Ipratropium (Duoneb 3 Mg/0.5 Mg (3 Ml) Ud) 3 ml INH RQ4 [facility] Last Admin: 07/16/17 12:03 Dose: Not Given Azithromycin (Zithromax) 500 mg PO DAILY [facility] PRN Reason: Protocol Benzocaine/Menthol (Cepacol Sore Throat) 1 yuni MT Q4 [facility] Last Admin: 07/16/17 12:02 Dose: Not Given Bupropion HCl (Wellbutrin Xl) 150 mg PO DAILY [facility] Last Admin: 07/16/17 09:01 Dose: 150 mg Clonidine HCl (Catapres) 0.1 mg PO Q8 PRN PRN Reason: COWS Score More or Equal to 5 Guaifenesin (Mucinex La) 600 mg PO BID [facility] Last Admin: 07/16/17 09:01 Dose: 600 mg Hydroxyzine HCl (Atarax) 25 mg PO Q6H PRN PRN Reason: Anxiety Last Admin: 07/14/17 23:45 Dose: 25 mg Ibuprofen (Motrin Tab) 600 mg PO Q6H PRN PRN Reason: Pain, moderate (4-7) Last Admin: 07/16/17 00:24 Dose: 600 mg Loperamide HCl (Imodium) 2 mg PO Q8 PRN PRN Reason: Diarrhea Lorazepam (Ativan) 1 mg PO Q8H PRN PRN Reason: severe anxiety, max 2x/24h Last Admin: 07/16/17 01:35 Dose: 1 mg Mirtazapine (Remeron) 45 mg PO HS [facility] Last Admin: 07/15/17 21:15 Dose: 45 mg Moxifloxacin HCl (Avelox) 400 mg PO DAILY [facility] PRN Reason: Protocol Stop: 07/19/17 11:00 Last Admin: 07/16/17 09:01 Dose: 400 mg Nicotine (Nicoderm Cq) 1 patch TD DAILY [facility] Last Admin: 07/16/17 09:13 Dose: Not Given Ondansetron HCl (Zofran Tab) 4 mg PO Q8 PRN PRN Reason: Nausea/Vomiting Tiotropium [place] (Spiriva) 18 mcg INH RQ24 [facility] Last Admin: 07/16/17 08:54 Dose: 18 mcg Trazodone HCl (Desyrel) 100 mg PO HS PRN PRN Reason: Insomnia Last Admin: 07/15/17 21:15 Dose: 100 mg - Labs Labs: 07/16/17 08:01 07/16/17 08:01 Attending/Attestation - Attestation I have personally seen and examined this patient.: Yes I have fully participated in the care of the patient.: Yes I have reviewed all pertinent clinical information, including history, physical exam and plan: Yes Notes (Text): Patient seen, examined this morning. Patient able to walk with his rolling walker from the cafeteria to his room. Patient reports he is breathing better. He denies fever, denies chills, denies chest pain, reports productive cough, denies nausea, denies vomitting, denies abdominal pain, denies nausea, denies vomitting. Patient reports he is better spirits. He reports he was able to speak with the virtualization engineer last night in regards to his dad's recent passing. He reports he is feeling better. He reports he wants to quit smoking cold turkey and he does not want to take heroin. Patient's lung exam is improved. Discussed with pulm, patient is medically stable. He will need to finish avelox prescription, will given ventolin HFA pump , OTC cough syrup and he will need to f/u with PMD or Dr. Dolan upon discharge. Prescriptions: 1) Albuterol HFA 1 puff inhaled Q6H PRN shortness of breathe 2) Avelox 400mg PO daily (3 tabs) to complete 3) Spiriva 18mcg inhaled qdaily (1 month supply with inhaler) 4) Nicotone patch 1 transdermal please use as directed (CANNOT smoke with the patch) Recommend OTC antitussive medications to control cough. Assessment/Plan 1) Pneumonia Assessment/Plan * +cough, + Hx of tobacco abuse (+20pack-yr) * Images * Chest xray (07/14/17): interval medial left lung base triangular atelectasis and /or infiltrate * Chest CT w/o contrast (07/14/17) : Probable multifocal pneumonia. Followup to resolution to exclude underlying pathology. * ABG: pH 7.46; O2 88; HCO3 27.3 * Pulmonology consulted, Dr. Dolan; help appreciated * Resident spoke with Dr. Dolan who stated to continue the patient on oral antibiotics - Avelox for 5 days on 07/15/17 * I spoke with Dr. Dolan as well given lung exam is improve; agrees. Medications: * Duonebs Q4h * Avelox 400mg daily started 07/15/17 for 5 days (discontinue Tuesday07/19/17) * Mucinex 600mg PO BID * Spiriva 18mcg inhaled daily 2) Opioid abuse Assessment/Plan * Management per psychiatry 3) Tobacco abuse Assessment/Plan * Nicoderm patch * Counselled on adverse side effects on tobacco 4) Bereavement Assessment/Plan * Recommend pastoral care given dad's recent passing-->patient has spoken with virtualization engineer
[2017-07-16 06:08] VITALS: BP 108/73; PULSE 73; TEMP 97.5; O2SAT 98
[2017-07-16 08:16] LABS: BASO # 0.1 K/uL (0.0-0.2); BASO % 0.7 % (0.0-2.0); EOS # 0.2 K/uL (0.0-0.7); EOS % 1.9 % (0.0-4.0); HEMOGLOBIN 12.3 g/dL (12.0-18.0); LYMPH # 1.6 K/uL (1.0-4.3); LYMPH % 17.7 % (20.0-40.0); MEAN CELL VOLUME 86.7 fL (80.0-94.0); MEAN CORPUSCULAR HEMOGLOBIN 28.8 pg (27.0-31.0); MEAN CORPUSCULAR HGB CONC 33.2 g/dL (33.0-37.0); MEAN PLATELET VOLUME 7.1 fL (7.2-11.7); MONO # 0.6 K/uL (0.0-0.8); MONO % 6.1 % (0.0-10.0); NEUT # 6.7 K/uL (1.8-7.0); NEUT % 73.6 % (50.0-75.0); RBC 4.27 Mil/uL (4.40-5.90); RED CELL DISTRIBUTION WIDTH 14.1 % (11.5-14.5); WHITE BLOOD COUNT 9.1 K/uL (4.8-10.8)
[2017-07-16 08:35] LABS: ALB/GLOB RATIO 0.9 (1.0-2.1); ALT/SGPT 23 U/L (21-72); AST/SGOT 27 U/L (17-59); BLOOD UREA NITROGEN 19 mg/dL (9-20); CALCIUM 9.1 mg/dl (8.6-10.4); GFR AFRICAN-AMERICAN > 60; GFR NON-AFRICAN AMERICAN > 60
[2017-07-16] MEDS: Tiotropium 18 mcg Cap For Inhalation INH SCH (08:54)
[2017-07-16] MEDS: guaiFENesin 600 mg ER Tab PO SCH (09:01)
[2017-07-16] MEDS: buPROPion 150 mg/24 Hours XL Tab PO SCH (09:01)
--- NOTE | 2017-07-16 12:12 | CARD ---
APPROVED REPORT EKG Measurement Heart [id number] <Conclusion> Normal sinus rhythm Left anterior fascicular block Abnormal ECG
--- NOTE | 2017-07-16 13:14 | PCM.PYCHDC ---
Mental Status Examination - Mental Status Examination Orientation: Person, Place, Situation, Time Memory: Intact Mood: Depressed Affect: Constricted Speech: Appropriate Attention: WNL Concentration: WNL Association: WNL Fund of Knowledge: WNL Formal Thought Process: No Impairment Description of patient's judgement and insight: fair/good Psychotic Thoughts and Behaviors: denied Suicidal Ideation: No Current Homicidal Ideation?: No Plan: denied Discharge Summary - Discharge Note Reason for Hospitalization: Patient is a 57 year old male who presents to ED requesting detox from heroin. Patient was using 4-5 bags of heroin intranasally per day. Patient also reports smoking 1/2 PPD of cigarettes for 40 years. Denies using other drugs and denies alcohol use. Patient was last here for detox in 2016. After discharge, patient did not go to any rehab program and relapsed. Patient uses a walker at baseline. Patient is and has 3 children but is homeless and has been living at the retirement in [place] for the past 7 months. Patient gets money from disability. Patient is interested in a rehab program. Patient has tried suboxone by purchasing from people at the retirement. Patient is having withdrawal symptoms including nausea, joint pain, and excessive fatigue. Patient also complains of being depressed for several months. He reports decreased sleep, decreased concentration, decreased energy, and decreased appetite. Patient overall is upset but denies suicidal ideations. Detox Hx: once in 2016 at [facility] Hx: denies PMHx: herniated disc (lumbar), HTN PSHx: left hip surgery and back surgery Allergies: no known allergies Medications: denies Family Hx: denies Psych Hx: He has been depressed but no admissions or suicide attempts Laboratory Data: Abnormal Lab Results 07/16/17 07/16/17 08:01 08:01 WBC 9.1 RBC 4.27 L Hgb 12.3 Hct 37.0 MCV 86.7 MCH 28.8 MCHC 33.2 RDW 14.1 Plt Count 350 MPV 7.1 L Neut % (Auto) 73.6 Lymph % (Auto) 17.7 L [place] % (Auto) 6.1 Eos % (Auto) 1.9 Baso % (Auto) 0.7 Neut # (Auto) 6.7 Lymph # (Auto) 1.6 [place] # (Auto) 0.6 Eos # (Auto) 0.2 Baso # (Auto) 0.1 Sodium 143 Potassium 4.9 Chloride 101 Carbon Dioxide 31 H Anion Gap 15 BUN 19 Creatinine 1.1 Est GFR ( Amer) > 60 Est GFR (Non-Af Amer) > 60 Random Glucose 98 Calcium 9.1 Phosphorus 3.9 Magnesium 2.6 H Total Bilirubin 0.2 AST 27 ALT 23 Alkaline Phosphatase 103 Total Protein 8.3 Albumin 4.0 Globulin 4.3 H Albumin/Globulin Ratio 0.9 L Consultations:: List each consultation separately and include: 1. Reason for request. 2. Findings. 3. Follow-up Consultations: internal medicine Summary of Hospital Course include:: 1. Description of specific treatment plan utilized for patients during their course of treatmen. 2. Summarize the time- course for resolution of acute symptoms and/or regressed behaviors. 3. Describe issues identified and worked on during hospitalization. 4. Describe medication utilized. 5. Describe medical problems identified and treated. 6. Reassessment of suicide risk Summary of Hospital Course: The pt was admitted and started on detox treatment with psychotherapy, support, psychoeducation and medications. VA and CBT techniques were used. The pt was compliant with the treatment. The pt attended groups and activities, as well as milieu therapy. All the risks and benefits of medications were discussed and the patient understood and agreed. The pt improved with the treatment. Pt appreciate the treatment and care which was provided to him. At the time of d/c pt denied any depresive symptoms, manic symptoms. He denied any SI, HI, intent or plan. Pt denied any perceptual disturbances. He had behavioral issues. Pt reported improvement in his withdrawal symptoms. Medicine team consulted and appreciate their recommendation to continue antibiotic for pneumonia. Psychoeducation was provided to the pt to be compliant with the medication, treatment plan and f/u plan after the discharge. After care discussed with the patient. Medication prescription was provided to the pt. Recommend continue treatment and f/u after discharge in outpatient setting. Time spend 28 minutes Diagnosis: MDD RECURRENT WITHOUT PSYCHOTIC FEATURE Opioid dependence, with withdrawal symptoms. - Final Diagnosis (DSM 5) Condition upon Discharge: STABLE Disposition: HOME/ ROUTINE Prescriptions/Medication Reconciliation: Albuterol Sulfate [Ventolin Hfa] 1 puff IH Q6 PRN #1 ml PRN Reason: Shortness Of Breath buPROPion XL [Wellbutrin XL] 150 mg PO DAILY 15 Days #15 t24 Mirtazapine [Remeron] 45 mg PO HS 15 Days #15 tab Moxifloxacin [Avelox] 400 mg PO DAILY #3 tab Moxifloxacin [Avelox] 400 mg PO DAILY 3 Days #3 tab Nicotine 21 mg/24 hr [Nicoderm Cq] 1 patch TD DAILY #30 patch Tiotropium [Spiriva] 18 mcg INH RQ24 #30 cap Tiotropium [place] Inhaler [Spiriva Inhalation Handihaler Device] 1 inhaler INH ONCE #1 inhaler traZODone [Desyrel] 100 mg PO HS PRN 15 Days #15 tab PRN Reason: Insomnia - Smoking Cessation Smoking Cessation Medication prescribed: Yes - Antipsychotic Medications Pt discharged on 2 or more routine antipsychotic medications: No
--- NOTE | 2017-07-17 11:25 | CON ---
DATE: 07/15/2017 HISTORY OF PRESENT ILLNESS: Mr. Shahid is a 57-year-old man chief complaint depression, drug abuse. The patient is a smoker. The patient x-ray and subsequent CAT scan showed a lung nodule. The patient psych evaluation. He denies cough, shortness of breath, wheezing. PHYSICAL EXAMINATION: GENERAL: The patient is currently awake, alert and oriented. VITAL SIGNS: Temperature 98, pulse 90. HEENT: Within normal limits. NECK: Supple. JVP flat. CHEST: Symmetrical. HEART: Regular. ABDOMEN: Soft. EXTREMITIES: No edema. LABORATORY DATA: CAT scan of the chest revealed change, minimal apical scarring, mild to moderate patchy apical space beneath this level, minimal opacities in the left side suggestive of pneumonia. White count is 13,000 which increased from 8,000. IMPRESSION AND PLAN: Possible pneumonia. At this point we will start patient on p.o. Levaquin 500 mg daily for 7 days. Followup chest x-ray in outpatient shortly . Repeat CBC. Surinder Levine MD
== END 2017-07-16 13:39 | disposition home or self-care (01) | DRG 895 ==
LOC: C.ER 20:49 → C.7D 22:39 → C.5E 07-07 14:38
PROVIDERS: ADMIT Psychiatry & Neurology Psychiatry; ATTEND Psychiatry & Neurology Psychiatry
PROC: HZ2ZZZZ Detoxification Services for Substance Abuse Treatment (ICD-10-PCS; principal; 2017-07-06)
PROC: HZ59ZZZ Individual Psychotherapy for Substance Abuse Treatment, Supportive (ICD-10-PCS; 2017-07-06)
PROC: GZ3ZZZZ Medication Management (ICD-10-PCS; 2017-07-06)
PROC: HZ46ZZZ Group Counseling for Substance Abuse Treatment, Psychoeducation (ICD-10-PCS; 2017-07-06)
PROC: GZHZZZZ Group Psychotherapy (ICD-10-PCS; 2017-07-06)
PROC: GZ56ZZZ Individual Psychotherapy, Supportive (ICD-10-PCS; 2017-07-06)
PROC: HZ90ZZZ Pharmacotherapy for Substance Abuse Treatment, Nicotine Replacement (ICD-10-PCS; 2017-07-06)
DX: F11.23 Opioid dependence with withdrawal (principal); F33.2 Major depressive disorder, recurrent severe without psychotic features; J18.9 Pneumonia, unspecified organism; F17.210 Nicotine dependence, cigarettes, uncomplicated; F41.9 Anxiety disorder, unspecified; I10 Essential (primary) hypertension; F91.9 Conduct disorder, unspecified; Z63.4 Disappearance and death of family member; Z79.899 Other long term (current) drug therapy; Z59.0 Homelessness

== ENCOUNTER 2017-07-20 14:57 | Emergency (ER) | payer MEDICARE ==
[2017-07-20 15:12] VITALS: BMI 17.7
[2017-07-20 15:15] VITALS: BP 120/71; PULSE 80; RESP 18; TEMP 99.2; O2SAT 97
--- NOTE | 2017-07-20 15:48 | C.PDOC ---
History Of Present Illness 57 y/o male presents to ED for heroin detox. Patient was discharged from ER 07/16 for detox from opioids. Patient was on Detox floor violating the rules by smoking a cigarette. He was transferred to the psychiatric floor where he completed his detox. While at the hospital, patient developed pneumonia and was treated. Patient comes back today stating he has relapsed and uses 4-5 bags a day. Patient states "I want to check out" but denies suicidal plan. Time Seen by Provider: 07/20/17 15:26 Chief Complaint (Nursing): Substance Abuse History Per: Patient History/Exam Limitations: no limitations Onset/Duration Of Symptoms: Hrs Current Symptoms Are (Timing): Still Present Suicide/Self Injury Attempted (Context): None Modifying Factor(s): Narcotics, Other (opioids) Associated Symptoms: Suicidal Thoughts. denies: Suicidal Plan Involuntary Hold By: None Recent travel outside of the [place]: No Past Medical History Reviewed: Historical Data, Nursing Documentation, Vital Signs Vital Signs: Last Vital Signs Temp 99.2 F 07/20/17 15:12 Pulse 80 07/20/17 15:12 Resp 18 07/20/17 15:12 BP 120/71 07/20/17 15:12 Pulse Ox 97 07/20/17 15:50 - Medical History PMH: HTN Surgical History: Back Surgery - [facility] Procedures DETOXIFICATION SERVICES FOR SUBSTANCE ABUSE TREATMENT (07/06/17) EXCISION OF TOE NAIL, EXTERNAL APPROACH (07/23/16) EXERCISE TRMT MUSCULOSK LOW BACK/LE W ASSIST EQUIP (07/23/16) GAIT TRAINING/AMBULAT TREATMENT USING ASSIST EQUIPMENT (07/23/16) GROUP FINAL BLOCK PRESS OPERATOR FOR SUBSTANCE ABUSE TREATMENT, PSYCHOEDUCATION (07/06/17) GROUP PSYCHOTHERAPY (07/06/17) HOME MANAGEMENT TREATMENT USING ASSIST EQUIPMENT (07/23/16) INDIV PSYCHOTHERAPY FOR SUBSTANCE ABUSE TREATMENT, SUPPORT (07/06/17) INDIVIDUAL PSYCHOTHERAPY, SUPPORTIVE (07/06/17) MEDICATION MANAGEMENT (07/06/17) MEDS MGMT FOR SUBSTANCE ABUSE TREATMENT, METHADONE MAINT (09/09/16) PHARMACOTHERAPY FOR SUBSTANCE ABUSE, NICOTINE REPLACE (07/06/17) REPOSITION LEFT UPPER FEMUR WITH INTRAMED FIX, OPEN APPROACH (07/19/16) Family History: States: Unknown Family Hx - Social History Hx Tobacco Use: No Hx Alcohol Use: No Hx Substance Use: Yes - Immunization History Hx Tetanus Toxoid Vaccination: No Hx Influenza Vaccination: Yes Hx Pneumococcal Vaccination: No Review Of Systems Constitutional: Negative for: Fever, Chills Gastrointestinal: Negative for: Nausea, Vomiting, Diarrhea Skin: Negative for: Rash Neurological: Negative for: Weakness, Numbness Psych: Positive for: Suicidal ideation Physical Exam - Physical Exam Appears: Non-toxic, No Acute Distress Skin: Warm, Dry Head: Atraumatic, Normacephalic Eye(s): bilateral: Normal Inspection, PERRL, EOMI Oral Mucosa: Moist Neck: Supple Chest: Symmetrical, No Tenderness Cardiovascular: Rhythm Regular, No Murmur Respiratory: Normal Breath Sounds, No Decreased Breath Sounds, No Rales, No Rhonchi, No Wheezing Gastrointestinal/Abdominal: Soft, No Tenderness Extremity: Normal ROM, No Deformity Extremity: Bilateral: Atraumatic, Normal Color And Temperature, Normal ROM Neurological/Psych: Oriented x3 (Awake and alert), Normal Speech, Other (No focal deficits ) Gait: Steady ED Course And Treatment O2 Sat by Pulse Oximetry: 97 (RA) Pulse Ox Interpretation: Normal Progress Note: Patient was seen by crisis and advised that he is not a candidate for detox at this time. Patient became irritated and walked out of the ED. Medical Decision Making Medical Decision Making: Crisis Notified. Disposition - Disposition Disposition: HOME/ ROUTINE Disposition Time: 17:25 Condition: STABLE - Clinical Impression Clinical Impression: Opioid use disorder, severe, dependence - Scribe Statement The provider has reviewed the documentation as recorded by the Nidaibalirio Jones All medical record entries made by the Nidaibalirio were at my direction and personally dictated by me. I have reviewed the chart and agree that the record accurately reflects my personal performance of the history, physical exam, medical decision making, and the department course for this patient. I have also personally directed, reviewed, and agree with the discharge instructions and disposition.
== END 2017-07-20 17:59 | disposition home or self-care (01) ==
LOC: C.ER 14:57
DX: F11.20 Opioid dependence, uncomplicated (principal)

== ENCOUNTER 2017-09-21 13:12 | Inpatient (IN) | payer MEDICARE ==
[2017-09-21 13:12] VITALS: BMI 17.7
[2017-09-21 14:13] LABS: BASO % 0.5 % (0.0-2.0); EOS # 0.1 K/uL (0.0-0.7); EOS % 1.3 % (0.0-4.0); HEMOGLOBIN 11.3 g/dL (12.0-18.0); LYMPH # 1.3 K/uL (1.0-4.3); LYMPH % 13.3 % (20.0-40.0); MEAN CELL VOLUME 87.4 fL (80.0-94.0); MEAN CORPUSCULAR HEMOGLOBIN 29.2 pg (27.0-31.0); MEAN CORPUSCULAR HGB CONC 33.3 g/dL (33.0-37.0); MEAN PLATELET VOLUME 7.3 fL (7.2-11.7); MONO # 0.8 K/uL (0.0-0.8); MONO % 7.8 % (0.0-10.0); NEUT # 7.6 K/uL (1.8-7.0); NEUT % 77.1 % (50.0-75.0); RBC 3.87 Mil/uL (4.40-5.90); RED CELL DISTRIBUTION WIDTH 14.8 % (11.5-14.5); WHITE BLOOD COUNT 9.9 K/uL (4.8-10.8)
[2017-09-21 14:14] LABS: SQUAMOUS EPITHIAL 5 /hpf (0-5); URINE BACTERIA RARE (<OCC); URINE BILIRUBIN NEGATIVE (NEGATIVE); URINE BLOOD NEGATIVE (NEGATIVE); URINE CLARITY Hazy (Clear); URINE COLOR Yellow (YELLOW); URINE GLUCOSE (UA) NORMAL (Normal); URINE LEUKOCYTE ESTERASE NEG Leu/uL (Negative); URINE PROTEIN NEGATIVE (NEGATIVE)
[2017-09-21 14:33] LABS: ALT/SGPT 21 U/L (21-72); AST/SGOT 17 U/L (17-59); BLOOD UREA NITROGEN 13 mg/dL (9-20); CALCIUM 8.5 mg/dl (8.6-10.4); GFR AFRICAN-AMERICAN > 60; GFR NON-AFRICAN AMERICAN > 60
[2017-09-21 14:37] LABS: ACETAMINOPHEN < 10.0 ug/mL (10.0-30.0); SALICYLATE < 1.0 mg/dL 1
[2017-09-21 14:45] LABS: BENZODIAZEPINES, UR NEGATIVE (NEGATIVE); PHENCYCLIDINE, UR NEGATIVE (NEGATIVE)
[2017-09-21 14:46] LABS: BARBITURATES, UR NEGATIVE (NEGATIVE)
[2017-09-21 14:48] LABS: OPIATES, UR POSITIVE (NEGATIVE)
--- NOTE | 2017-09-21 15:14 | C.PDOC ---
History Of Present Illness 57yo male, with history of psychiatric disorders, opiate and marijuana abuse, comes to ER seeking detox. Patient denies any fever, chills, suicidal or homicidal ideation. He offers no medical complaints. Time Seen by Provider: 09/21/17 13:50 Chief Complaint (Nursing): Substance Abuse History Per: Patient Past Medical History Reviewed: Historical Data, Nursing Documentation, Vital Signs Vital Signs: Last Vital Signs Temp 98.2 F 09/21/17 15:21 Pulse 86 09/21/17 15:21 Resp 20 09/21/17 15:21 BP 105/66 09/21/17 15:21 Pulse Ox 96 09/21/17 15:21 - Medical History PMH: HTN Denies: Diabetes (Patient denied), Hepatitis (Patient denied), HIV (Patient denied), Chronic Kidney Disease, Seizures (Patient denied), Sexually Transmitted Disease (Patient denied) Surgical History: Back Surgery - [facility] Procedures DETOXIFICATION SERVICES FOR SUBSTANCE ABUSE TREATMENT (07/06/17) EXCISION OF TOE NAIL, EXTERNAL APPROACH (07/23/16) EXERCISE TRMT MUSCULOSK LOW BACK/LE W ASSIST EQUIP (07/23/16) GAIT TRAINING/AMBULAT TREATMENT USING ASSIST EQUIPMENT (07/23/16) GROUP STAKING TECHNICIAN FOR SUBSTANCE ABUSE TREATMENT, PSYCHOEDUCATION (07/06/17) GROUP PSYCHOTHERAPY (07/06/17) HOME MANAGEMENT TREATMENT USING ASSIST EQUIPMENT (07/23/16) INDIV PSYCHOTHERAPY FOR SUBSTANCE ABUSE TREATMENT, SUPPORT (07/06/17) INDIVIDUAL PSYCHOTHERAPY, SUPPORTIVE (07/06/17) MEDICATION MANAGEMENT (07/06/17) MEDS MGMT FOR SUBSTANCE ABUSE TREATMENT, METHADONE MAINT (09/09/16) PHARMACOTHERAPY FOR SUBSTANCE ABUSE, NICOTINE REPLACE (07/06/17) REPOSITION LEFT UPPER FEMUR WITH INTRAMED FIX, OPEN APPROACH (07/19/16) Family History: States: Unknown Family Hx - Social History Hx Tobacco Use: No Hx Alcohol Use: Yes (hx of alcohol use) Hx Substance Use: Yes - Immunization History Hx Tetanus Toxoid Vaccination: No Hx Influenza Vaccination: No Hx Pneumococcal Vaccination: No Review Of Systems Except As Marked, All Systems Reviewed And Found Negative. Constitutional: Negative for: Fever, Chills Psych: Positive for: Other (requesting detox). Negative for: Suicidal ideation Physical Exam - Physical Exam Appears: Non-toxic, No Acute Distress Skin: Normal Color Head: Normacephalic Eye(s): bilateral: Normal Inspection Neck: Supple Chest: Symmetrical Cardiovascular: Rhythm Regular Respiratory: Normal Breath Sounds Gastrointestinal/Abdominal: Normal Exam, Soft, No Tenderness Neurological/Psych: Oriented x3 ED Course And Treatment - Laboratory Results Result Diagrams: 09/21/17 14:06 09/21/17 14:06 Lab Interpretation: Abnormal (tox + opiate/THC) O2 Sat by Pulse Oximetry: 100 (RA) Pulse Ox Interpretation: Normal - Physician Consult Information Outcome Of Conversation: 1515: d/w Crisis, ok to Detox Medical Decision Making Medical Decision Making: Plan: * Labs * UDS * UA Patient medically cleared for psychiatric evaluation. 1510 Per crisis team, patient admitted for detox under Dr. Stiles Disposition Doctor Will See Patient In The: Hospital Counseled Patient/Family Regarding: Studies Performed, Diagnosis - Disposition Disposition: HOSPITALIZED Disposition Time: 15:14 Condition: GOOD - Clinical Impression Clinical Impression: Opiate abuse, continuous - Scribe Statement The provider has reviewed the documentation as recorded by the Osorio Ray Provider Attestation: All medical record entries made by the Osorio were at my direction and personally dictated by me. I have reviewed the chart and agree that the record accurately reflects my personal performance of the history, physical exam, medical decision making, and the department course for this patient. I have also personally directed, reviewed, and agree with the discharge instructions and disposition.
--- NOTE | 2017-09-21 15:28 | PCM.BM ---
<Love Tirado - Last Filed: 09/21/17 15:27> Treatment Plan Problems - Problems identified on initial assessmt potiential for opiate withdrawal Date Initiated: 09/21/17 Time Initiated: 15:28 Assessment reference: NA Status: Active Treatment assets and liabiliti Patient Assests: ADL independent, physically healthy, cognitively intact Patient Liabilities: substance abuse - Milieu Protocol Maintain good personal hygiene: daily Encourage regular showers, daily Remind patient to perform daily oral care, daily Assist patient to perform ADL's Maintain personal safety: every shift Educate patient to report safety concerns to staff, every shift Monitor environment for contraband/sharps Medication safety: Monitor for expected outcome, potential side effects: every shift, Assess barriers to learning: every shift, Assess readiness for medication education: every shift <Elizabeth Stiles - Last Filed: 09/22/17 14:31> - Diagnosis (1) Major depression Status: Acute Interventions: 09/22/17 14:28 * Assess/adjust medications daily and /or as needed * See patient on an individual basis 7x/week to assess symptoms of depression * Monitor for side effects & effectiveness of medications * (2) Opioid use disorder, severe, dependence Status: Acute Interventions: 09/22/17 14:30 * Assess 7x/week regarding severity of withdrawal * Educate regarding risks, benefits, side effects and alternatives of medications * Use Motivational Interviewing for abstinence * Use CBT for relapse prevention * Medication management for withdrawal symptoms * Encourage medication assisted treatment *
[2017-09-21] MEDS ORDERED: Aluminum Hydroxide/Magnesium Hydroxide Susp (30 mL) PO PRN (15:53)
[2017-09-21] MEDS ORDERED: Albuterol HFA 90 mcg/actuation (8 g) INH PRN (15:54)
[2017-09-21] MEDS: Multiple Vitamins Tab PO SCH (16:34)
[2017-09-22] MEDS: Tiotropium 18 mcg Cap For Inhalation INH SCH (09:03)
[2017-09-22] MEDS: Multiple Vitamins Tab PO SCH (09:38)
--- NOTE | 2017-09-22 14:27 | PCM.PSYCH ---
Initial Psychiatric Evaluation - Initial Psychiatric Evaluation Type of Admission: Voluntary Legal Status: Capacity Chief Complaint (in patient's own words): "I need detox from heroin." History of Present Illness and Precipitating Events: Pt is seen, chart reviewed, case discussed with staff. Pt is a 57 y/o AA male wo presented to the ED for heroin detox; pt is homeless and living in a alf in [place]; pt is with 3 children. He is known from a recent detox and psych admission. Pt is using 10 bags of heroin intranasally/day; pt denies all other drugs and alcohol; pt smokes a half a pack of cigarettes/day. Pt was admitted to detox at in 2015 and again in June 2017; both times pt did not attend any rehab program and relapsed; when pt left in July of 2017, he flew to [place] to bury his father and returned back and immediately relapsed. Pt has never been to rehab. History of OD, poor support, and significant depression Pt has depressed mood and says that he has feelings of hopelessness, decreased sleep, decreased energy, and decreased concentration. Pt describes and displays significant withdrawal sxs including weakness and body aches. Past medical hx includes a herniated lumbar disc and HTN. Family hx denied. Psychiatric hx includes depression, pt denies S/I. Current Medications: Active Medications Generic Name Dose Route Start Last Admin Trade Name Freq PRN Reason Stop Dose Admin Al Hydrox/Mg Hydrox/Simethicone 30 ml 09/21/17 15:53 Maalox 30 Ml PO TID PRN Indigestion / Heartburn Albuterol 1 puff 09/21/17 15:54 Ventolin Hfa 90 Mcg/Actuation (8 G) INH RQ4 PRN SOB Clonidine HCl 0.1 mg 09/21/17 15:53 Catapres PO Q8 PRN COWS Score More or Equal to 5 Cyclobenzaprine HCl 5 mg 09/22/17 10:00 09/22/17 14:17 Flexeril PO 5 mg TID EMMETT Administration Hydroxyzine HCl 25 mg 09/21/17 15:54 Atarax PO Q4H PRN Anxiety Ibuprofen 400 mg 09/21/17 15:54 09/21/17 16:20 Motrin Tab PO 400 mg Q6H PRN Administration Pain, moderate (4-7) Loperamide HCl 2 mg 09/21/17 15:53 Imodium PO Q8 PRN Diarrhea Methadone HCl 15 mg 09/22/17 10:00 09/22/17 09:39 Methadone PO 09/27/17 09:59 15 mg Q24H EMMETT Administration Taper Mirtazapine 15 mg 09/21/17 22:00 09/21/17 21:58 Remeron PO Not Given HS EMMETT Multivitamins 1 tab 09/21/17 16:00 09/22/17 09:38 Hexavitamin PO Not Given DAILY EMMETT Ondansetron HCl 4 mg 09/21/17 15:53 Zofran Tab PO Q8 PRN Nausea/Vomiting Tiotropium [place] 18 mcg 09/22/17 08:00 09/22/17 09:03 Spiriva INH Not Given RQ24 EMMETT Past Psychiatric History - Past Psychiatric History Previous Treatment History: Inpatient Prior Psychiatric Treatment: [facility]E [facility] hospital: Pertinent Medical Hx (Current Medical&Sleep Prob, Allergies): Allergies Allergy/AdvReac Type Severity Reaction Status Date / Time No Known Allergies Allergy Verified 07/20/17 15:11 No Known Home Med 09/21/17 Review of Systems - Psychiatric Psychiatric: Abnormal Sleep Pattern, Anhedonia, Anxiety, Behavioral Changes, Change in Appetite, Depression, Difficulty Concentrating, Hopelessness, Irritability. absent: Auditory Hallucinations, Hallucinations, Homicidal Ideation, Mood Swings, Panic Attacks, Paranoia, Suicidal Ideation, Visual Hallucinations Mental Status Examination - Personal Presentation Personal Presentation: Looks stated age - Affect Affect: Blunted, Depressed - Motor Activity Motor Activity: Psychomotor Retardation - Reliability in Providing Information Reliability in Providing Information: Fair - Speech Speech: Organized - Mood Mood: Depressed - Formal Thought Process Formal Thought Process: No Impairment - Obsessions/Compulsions Obsessions: No Compulsions: No - Cognitive Functions Orientation: Person, Place, Situation, Time Sensorium: Drowsy Attention/Concentration: Easily distracted Estimate of Intelligence: Average Judgement: Intact, as evidence by: Insight regarding need for hospitalization Memory: Recent intact, as evidence by: Ability to recall events of the day, Remote impaired as evidenced by: Inability to recall sig life events - Risk Risk: Withdrawal, Falls, Diminished functioning - Strength & Assets Inventory Strength & Assets Inventory: Cooperative - Limitations Limitations: Living alone, Other DSM 5 DX - DSM 5 DSM 5 Diagnosis: Opioid Withdrawal Opioid Use Disorder, severe Major Depressive Disorder, moderate - Recommended/Plan of Treatment Treatment Recommendations and Plan of Treatment: Taper with Methadone Gabapentin for augmentation if needed As needed medications, Atarax 25 mg for anxiety, Remeron for depression All risks, benefits and alternatives of the meds discussed, and the pt agreed and understood. Attend groups and activities Supportive therapy and psychoeducation OR for abstinence CBT for relapse prevention Encourage MAT Refer to rehab or IOP, and self-help groups 35 min Projected ELOS: 4-5 days
[2017-09-23] MEDS: Tiotropium 18 mcg Cap For Inhalation INH SCH ×2 (08:15→08:16)
[2017-09-23] MEDS: Multiple Vitamins Tab PO SCH (09:17)
--- NOTE | 2017-09-23 16:50 | PCM.PYCHPN ---
Psychiatric Progress Note - Psychiatric Progress Note Patient seen today, length of contact: 15 min Patient Chief Complaint: "I need detox from heroin." Problems Identified/Issues Discussed: The pt is seen, chart reviewed, case discussed with staff. He says that his withdrawal symptoms currently are cramps, N/V, and general weakness Also says that he didnt sleep well last night and woke up a couple of times; pt eyes also seemed to be icteric The pt is compliant with medications and reports no side-effects. Symptoms are improving but needs more time to stabilize. Pt attends groups and activities. Support given, psycho-education provided. After care discussed. Mental Status Examination - Cognitive Function Orientation: Person, Place, Situation, Time Memory: Intact Attention: WNL Concentration: WNL Association: WNL Fund of Knowledge: WNL - Mood Mood: Depressed - Affect Affect: Blunted, Depressed - Speech Speech: Appropriate - Formal Thought Process Formal Thought Process: No Impairment - Homicidal Ideation Homicidal Ideation: No Goal/Treatment Plan - Goal/Treatment Plan Progress Toward Problem(s) and Goals/Treatment Plan: Taper with Methadone Gabapentin for augmentation if needed As needed medications, Atarax 25 mg for anxiety, Remeron for depression All risks, benefits and alternatives of the meds discussed, and the pt agreed and understood. Attend groups and activities Supportive therapy and psychoeducation MD for abstinence CBT for relapse prevention Encourage MAT Refer to rehab or IOP, and self-help groups 15 min
[2017-09-24] MEDS: Tiotropium 18 mcg Cap For Inhalation INH SCH (08:37)
[2017-09-24] MEDS: Multiple Vitamins Tab PO SCH (09:24)
[2017-09-24 09:54] VITALS: RESP 18
--- NOTE | 2017-09-24 20:03 | PCM.PYCHPN ---
Psychiatric Progress Note - Psychiatric Progress Note Patient seen today, length of contact: 15 min Patient Chief Complaint: I CAN'T SLEEP MY LEGS ARE ALWAYS MOVING AND THIS WAKES ME UP Problems Identified/Issues Discussed: PT SEEN AND EXAMINED DISCUSSED WITH STAFF INSOMNIA AND RESTLESS LEGS AND WHAT CAN BE DONE ABOUT THEM MIRAPEX Medical Problems: RESTLESS LEGS Diagnostic Results: REVIEWED DSM 5 Symptoms Update: INSOMNIA Medication Change: Yes (TAPER METHADONE MIRAPEX) Medical Record Reviewed: Yes Mental Status Examination - Cognitive Function Orientation: Place, Situation, Time Memory: Intact Attention: WNL Concentration: WNL Association: WNL Fund of Knowledge: WNL - Mood Mood: Depressed - Affect Affect: Blunted, Depressed - Speech Speech: Appropriate - Formal Thought Process Formal Thought Process: No Impairment - Suicidal Ideation Suicidal Ideation: No - Homicidal Ideation Homicidal Ideation: No Goal/Treatment Plan - Goal/Treatment Plan Need for Continued Stay: Severe depression anxiety Progress Toward Problem(s) and Goals/Treatment Plan: OPIOID WITHDRAWAL METHADONE TAPER OPIOID USE DISORDER CBT SD GROUP MILIEU AND RECREATIONAL THERAPY SUPPORTIVE PSYCHOTHERAPY RESTLESS LEGS NEURONTIN MIRAPEX Estimated Date of D/C: 09/26/17 - Smoking Cessation Smoking Cessation Initiated: No
[2017-09-25] MEDS: Tiotropium 18 mcg Cap For Inhalation INH SCH (08:10)
[2017-09-25] MEDS: Multiple Vitamins Tab PO SCH (09:16)
--- NOTE | 2017-09-25 19:50 | PCM.PYCHPN ---
Psychiatric Progress Note - Psychiatric Progress Note Patient seen today, length of contact: 15 min Patient Chief Complaint: I SLEPT BETTER BUT I STILL WOKE UP DURING THE NIGHT Problems Identified/Issues Discussed: PT SEEN AND EXAMINED DISCUSSED WITH STAFF DISCUSSED WITH PT WHETHER HE WANTED TO GO ON MAINTENANCE ADDICTION TREATMENT PRO AND CONS OF MMTP VS SUBOXONE Medical Problems: RESTLESS LEGS Diagnostic Results: REVIEWED Medication Change: Yes (TAPER METHADONE MIRAPEX) Medical Record Reviewed: Yes Mental Status Examination - Cognitive Function Orientation: Place, Situation, Time Memory: Intact Attention: WNL Association: WNL - Mood Mood: Depressed, Anxious - Affect Affect: Blunted, Depressed - Speech Speech: Appropriate - Formal Thought Process Formal Thought Process: No Impairment - Suicidal Ideation Suicidal Ideation: No - Homicidal Ideation Homicidal Ideation: No Goal/Treatment Plan - Goal/Treatment Plan Need for Continued Stay: Severe depression anxiety Progress Toward Problem(s) and Goals/Treatment Plan: OPIOID WITHDRAWAL METHADONE TAPER PRNS NEEDED FOR WITHDRAWAL SYMPTOMS OPIOID USE DISORDER CBT MS GROUP MILIEU AND RECREATIONAL THERAPY SUPPORTIVE PSYCHOTHERAPY RESTLESS LEGS NEURONTIN MIRAPEX Estimated Date of D/C: 09/26/17 - Smoking Cessation Smoking Cessation Initiated: No
[2017-09-25 20:37] VITALS: O2SAT 98
[2017-09-26 06:39] VITALS: BP 126/67; PULSE 61; TEMP 97.8
[2017-09-26] MEDS: Tiotropium 18 mcg Cap For Inhalation INH SCH (07:59)
--- NOTE | 2017-09-26 08:45 | PCM.PYCHDC ---
Mental Status Examination - Mental Status Examination Orientation: Person, Place, Situation, Time Memory: Impaired Mood: Depressed, Anxious Affect: Constricted Speech: Slurred Attention: WNL Concentration: Poor Association: WNL Fund of Knowledge: Poor Formal Thought Process: No Impairment Suicidal Ideation: No Current Homicidal Ideation?: No Discharge Summary - Discharge Note Reason for Hospitalization: Opioid detox Consultations:: List each consultation separately and include: 1. Reason for request. 2. Findings. 3. Follow-up Summary of Hospital Course include:: 1. Description of specific treatment plan utilized for patients during their course of treatmen. 2. Summarize the time- course for resolution of acute symptoms and/or regressed behaviors. 3. Describe issues identified and worked on during hospitalization. 4. Describe medication utilized. 5. Describe medical problems identified and treated. 6. Reassessment of suicide risk Summary of Hospital Course: Pt is seen, chart reviewed, case discussed with staff. On admission: Pt is a 57 y/o AA male wo presented to the ED for heroin detox; pt is homeless and living in a half-way in [place]; pt is with 3 children. He is known from a recent detox and psych admission. Pt is using 10 bags of heroin intranasally/day; pt denies all other drugs and alcohol; pt smokes a half a pack of cigarettes/day. Pt was admitted to detox at in 2015 and again in June 2017; both times pt did not attend any rehab program and relapsed; when pt left in July of 2017, he flew to [place] to bury his father and returned back and immediately relapsed. Pt has never been to rehab. History of OD, poor support, and significant depression Pt has depressed mood and says that he has feelings of hopelessness, decreased sleep, decreased energy, and decreased concentration. Pt describes and displays significant withdrawal sxs including weakness and body aches. Past medical hx includes a herniated lumbar disc and HTN. Family hx denied. Psychiatric hx includes depression, pt denies S/I. Hospital course: The pt was admitted and started on treatment with psychotherapy, support, psychoeducation and medications. NV and CBT used. The pt attended groups and activities, as well as milieu therapy. All the risks and benefits of medications are discussed and the patient understood and agreed. The pt improved with the treatments provided. After care discussed with the patient. He will go to [facility] in . He had heroin in his wallet - "I forgot" he said. He did not use it. - Final Diagnosis (DSM 5) Condition upon Discharge: GOOD DSM 5: Opioid Withdrawal Opioid Use Disorder, severe Major Depressive Disorder, moderate Disposition: REHAB FACILITY/REHAB UNIT Follow-up Treatment Plan: Continue below medications after discharge. Follow after care plan as discussed. Use relapse prevention skills Return to ER or call 911 if suicidal, homicidal or symptoms relapse. Stay away from stress, alcohol and drugs. See primary doctor regularly and get labs. Prescriptions/Medication Reconciliation: Albuterol HFA [Ventolin HFA 90 mcg/actuation (8 g)] 1 puff INH RQ4 PRN #1 inhaler PRN Reason: SOB Cyclobenzaprine [Flexeril] 5 mg PO BID #60 tab Mirtazapine [Remeron] 30 mg PO HS #30 tab Multivitamins [Hexavitamin] 1 tab PO DAILY #30 tab Pramipexole [Mirapex] 1 mg PO HS #30 tab traZODone [Desyrel] 50 mg PO HS PRN #30 tab PRN Reason: Insomnia
[2017-09-26] MEDS: Multiple Vitamins Tab PO SCH (09:26)
== END 2017-09-26 11:24 | disposition home or self-care (01) | DRG 897 ==
LOC: C.ER 13:12 → C.7D 15:10
PROVIDERS: ADMIT Psychiatry & Neurology Psychiatry; ATTEND Psychiatry & Neurology Psychiatry
PROC: GZ56ZZZ Individual Psychotherapy, Supportive (ICD-10-PCS; principal; 2017-09-21)
PROC: GZHZZZZ Group Psychotherapy (ICD-10-PCS; 2017-09-21)
DX: F11.23 Opioid dependence with withdrawal (principal); F32.1 Major depressive disorder, single episode, moderate; R17 Unspecified jaundice; G25.81 Restless legs syndrome; G47.00 Insomnia, unspecified; I10 Essential (primary) hypertension; Z59.0 Homelessness; F12.10 Cannabis abuse, uncomplicated